=== PATIENT | female | born 1975 | race Caucasian/White ===

== ENCOUNTER 2019-08-07 10:01 | Emergency (ER) | payer OTHER ==
--- NOTE | 2019-08-07 10:25 | EDPHYS ---
Physician Documentation [facility] Name: Glo Perez Age: 44 yrs Sex: Female : 1975 Arrival Date: 08/07/2019 Time: 10:03 Bed 19 Private MD: Unknown, Unknown ED Physician Malick Samayoa HPI: 08/07 10:26 This 44 yrs old Female presents to ER via Ambulatory with complaints of Back jmm Pain. 10:26 The patient presents with pain that is acute. Onset: The symptoms/episode jmm began/occurred gradually, 1 day(s) ago. The pain does not radiate. Associated signs and symptoms: Pertinent negatives: abdominal pain, chest pain, weakness. Modifying factors: the patient symptoms are aggravated by movement. This is a 44 year old female with no known medical conditions that presents to the ED with complaints of right upper back pain. patient states she performed yard work yesterday and developed pain last night. denies chest pain, denies shortness of breath, denies fever or chills. pain is worsened with movement of her right arm. 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 - Social history:: Smoking status: Patient uses tobacco products, smokes one-half pack cigarettes per day. - Ebola Screening: : Patient negative for fever greater than or equal to 101.5 degrees Fahrenheit, and additional compatible Ebola Virus Disease symptoms Patient denies exposure to infectious person Patient denies travel to an Ebola-affected area in the 21 days before illness onset No symptoms or risks identified at this time. ROS: 10:26 Constitutional: Negative for fever, chills, and weight loss, Cardiovascular: Negative jmm for chest pain, palpitations, and edema, Respiratory: Negative for shortness of breath, cough, wheezing, and pleuritic chest pain. 10:26 Back: Positive for pain with movement. 10:26 All other systems are negative. Exam: 10:26 Constitutional: This is a well developed, well nourished patient who is awake, alert, jmm and in no acute distress. Head/Face: atraumatic. Eyes: EOMI, no conjunctival erythema appreciated ENT: Moist Mucus Membranes Neck: Trachea midline, Supple Chest/axilla: Normal chest wall appearance and motion. Cardiovascular: Regular rate and rhythm. No edema appreciated Respiratory: Normal respirations, no respiratory distress appreciated Abdomen/GI: Non distended, soft 10:26 Back: no midline tenderness, pain reproduced on palpation of the right paraspinal thoracic region. 10:26 Musculoskeletal/extremity: ROM: intact in all extremities. 10:26 Skin: Appearance: Color: normal in color. 10:26 Neuro: Orientation: is normal, Mentation: is normal, Memory: is normal. 10:26 Psych: Behavior/mood is pleasant, cooperative. Vital Signs: 10:20 BP 137 / 81; Pulse 98; Resp 16; Temp 97.8(TE); Pulse Ox 100% on R/A; Weight 115.67 kg; iw Height 5 ft. 8 in. (172.72 cm); Pain 8/10; 10:20 Body Mass Index 38.77 (115.67 kg, 172.72 cm) iw MDM: 10:15 Patient medically screened. [facility] 10:23 Data reviewed: vital signs, nurses notes. Counseling: I had a detailed discussion with [facility] the patient and/or guardian regarding: the historical points, exam findings, and any diagnostic results supporting the discharge/admit diagnosis, the need for outpatient follow up, to return to the emergency department if symptoms worsen or persist or if there are any questions or concerns that arise at home. ED course: Pain is reproducible. I do not suspect dissection or acs. Patient has not chest pain. Denies shortness of breath. . Administered Medications: No medications were administered Disposition: 13:03 Co-signature as Attending Physician, Malick Samayoa MD I agree with the assessment and kdr plan of care. Disposition: 08/07/19 10:24 Discharged to Home. Impression: Strain of muscle and tendon of back wall of thorax. - Condition is Stable. - Discharge Instructions: Thoracic Strain. - Prescriptions for Prednisone 20 mg Oral Tablet - take 3 tablet by ORAL route once daily for 5 days; 15 tablet. orphenadrine citrate 100 mg Oral Tablet Sustained Release - take 1 tablet by ORAL route 2 times per day As needed; 20 tablet. - Work release form, Medication Reconciliation Form, Thank You Letter, Antibiotic Education, Prescription Opioid Use form. - Follow up: Private Physician; When: 2 - 3 days; Reason: Recheck today's complaints, Continuance of care, Re-evaluation by your physician. Signatures: Sara Oconnell RN RN Malick Samayoa MD MD kdr Mickail, Joel, PA PA jmm Williams, Irene, RN RN iw Corrections: (The following items were deleted from the chart) 10:32 10:24 08/07/2019 10:24 Discharged to Home. Impression: Strain of muscle and tendon of ch back wall of thorax. Condition is Stable. Forms are Medication Reconciliation Form, Thank You Letter, Antibiotic Education, Prescription Opioid Use. Follow up: Private Physician; When: 2 - 3 days; Reason: Recheck today's complaints, Continuance of care, Re-evaluation by your physician. bridgette
--- NOTE | 2019-08-07 10:25 | ER ---
Nurse's Notes [facility] Name: Glo Perez Age: 44 yrs Sex: Female : 1975 Arrival Date: 08/07/2019 Time: 10:03 Bed 19 Private MD: Unknown, Unknown Diagnosis: Strain of muscle and tendon of back wall of thorax Presentation: 08/07 10:18 Presenting complaint: Patient states: right mid back pain started last night, was doing yard work yesterday, feels like crampy, aggravated when taking a deep breath. Transition of care: patient was not received from another setting of care. Onset of symptoms was August 06, 2019. Risk Assessment: Do you want to hurt yourself or someone else? Patient reports no desire to harm self or others. Initial Sepsis Screen: Does the patient meet any 2 criteria? No. Patient's initial sepsis screen is negative. Does the patient have a suspected source of infection? No. Patient's initial sepsis screen is negative. Care prior to arrival: None. 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 - Social history:: Smoking status: Patient uses tobacco products, smokes one-half pack cigarettes per day. - Ebola Screening: : Patient negative for fever greater than or equal to 101.5 degrees Fahrenheit, and additional compatible Ebola Virus Disease symptoms Patient denies exposure to infectious person Patient denies travel to an Ebola-affected area in the 21 days before illness onset No symptoms or risks identified at this time. Screenin:25 Abuse screen: Denies threats or abuse. Denies injuries from another. Nutritional ch screening: No deficits noted. Tuberculosis screening: No symptoms or risk factors identified. Fall Risk None identified. Assessment: 10:23 General: Appears in no apparent distress. comfortable, Behavior is calm, cooperative, ch appropriate for age. Neuro: Level of Consciousness is awake, alert, obeys commands, Oriented to person, place, time, situation. Cardiovascular: No deficits noted. Respiratory: No deficits noted. GI: No signs and/or symptoms were reported involving the gastrointestinal system. : No signs and/or symptoms were reported regarding the genitourinary system. Derm: Skin is pink, warm \T\ dry. Musculoskeletal: Capillary refill < 3 seconds, in bilateral fingers. Range of motion: limited in left shoulder. 10:25 Pain: Complains of pain in left mid back. ch 10:25 Pain: Complains of pain in right scapular area, right subscapular area and right mid ch back. 10:30 Reassessment: Patient appears in no apparent distress at this time. Patient and/or ch family updated on plan of care and expected duration. Pain level reassessed. Patient is alert, oriented x 3, equal unlabored respirations, skin warm/dry/pink. Patient states feeling better. Patient states symptoms have improved. Vital Signs: 10:20 BP 137 / 81; Pulse 98; Resp 16; Temp 97.8(TE); Pulse Ox 100% on R/A; Weight 115.67 kg; iw Height 5 ft. 8 in. (172.72 cm); Pain 8/10; 10:20 Body Mass Index 38.77 (115.67 kg, 172.72 cm) iw ED Course: 10:03 Patient arrived in ED. ag5 10:04 Unknown, Unknown is Private Physician. ag5 10:08 [facility]ill[facility] Campbell [facility] 10:08 Malick Samayoa MD is Attending Physician. [facility] 10:11 Esdras Haney LVN is Primary Nurse. em 10:20 Triage completed. iw 10:20 Arm band placed on. iw 10:25 No apparent distress. Resting quietly. ch 10:25 Patient has correct armband on for positive identification. Bed in low position. Call ch light in reach. Side rails up X 1. Pulse ox on. NIBP on. Warm blanket given. 10:25 No provider procedures requiring assistance completed. Patient did not have IV access ch during this emergency room visit. Administered Medications: No medications were administered Outcome: 10:24 Discharge ordered by . [facility] 10:32 Discharged to home ambulatory, with family. 10:32 Condition: stable 10:32 Discharge instructions given to patient, Instructed on discharge instructions, follow up and referral plans. medication usage, Demonstrated understanding of instructions, follow-up care, medications, Prescriptions given X 2. 10:32 Patient left the ED. Signatures: Sara Oconnell RN RN Guillermo Roach PA PA jmm Munoz, Edgar, COBOL ENGINEER COBOL ENGINEER em Cheri Cortes RN RN Ryan Cabral ag5 Corrections: (The following items were deleted from the chart) 10:26 10:23 Pain: Complains of pain in left trapezius, left scapular area and left ch subscapular area Pain currently is 8 out of 10 on a pain scale.
[2019-08-07 10:43] VITALS: BP 137/81; TEMP 97.8; O2SAT 100
== END 2019-08-07 10:32 | disposition home or self-care (01) ==
LOC: ER 10:01
DX: S29.012A Strain of muscle and tendon of back wall of thorax, initial encounter (principal); Y93.H2 Activity, gardening and landscaping; Y93.89 Activity, other specified; Y92.9 Unspecified place or not applicable; F17.210 Nicotine dependence, cigarettes, uncomplicated
CPT/HCPCS: 99283

== ENCOUNTER 2020-05-17 22:26 | Emergency (ER) | payer OTHER ==
--- OUTSIDE RECORDS SUMMARY | 2020-05-17 22:29 | XMS REPORT | Continuity of Care Document ---
:1975 Author Organization [facility] t Address [address] [place] [address] Care Team Providers Name Role Phone [facility] Attending Clinician Unavailable Denice Vivar Attending Clinician Problems This patient has no known problems. Allergies, Adverse Reactions, Alerts This patient has no known allergies or adverse reactions. Medications This patient has no known medications. Procedures This patient has no known procedures. Encounters Start End Encounter Admission Attending Care Care Encounter Source Date/Time Date/Time Type Type Clinicians Facility Department ID 2020-04-26 2020-04-26 Urgent Pob1, Acute [facility] [id number] 11:16:58 11:36:58 [facility] [id number] [place] [id number] Professio [id number] [address] 2019-06-11 2019-06-11 Office SHIVA Rahman [id number] 07:52:15 08:17:02 Visit Koki Galdamez SHIFT STACKER [id number] [facility] [id number] MATERNAL [id number] & CHILD [address] [place] [address] Results This patient has no known results.
--- OUTSIDE RECORDS SUMMARY | 2020-05-17 22:29 | XMS REPORT | Summary of Care ---
:1975 Author Organization [facility] - [facility] Address [address] [place] [id number] Care Team Providers Name Role Phone Scott Anderson Primary Care Provider Reason for Visit Reason Comments Headache terrible headache, even her eyes hurt Fatigue Shortness of Breath having a hard time breathing , chest hurts to breathe in Cough non productive and severe at night. Encounter Details Date Type Department Care Team Description 04/26/2020 Urgent Care [facility] Family Nicky Gregg, SPECIFICATIONS CHECKER [facility] [address] [address] Suspected 2019 Novel Coronavirus Infecti on (Primary Dx); Medicine - [place] [facility] URI, acute; [address] [place] [address] SOB (short ness of breath) [place] [address] Allergies No Known Allergiesdocumented as of this encounter (statuses as of 04/26/2020) Medications Medication Sig Dispensed Refills Start Date End Date Status albuterol (VENTOLIN Inhale 2 Puffs 8.5 g 0 04/26/202005/14 Active HFA) 90 every 6 (six) mcg/actuation hours as needed inhalerIndications: for Shortness of URI, acute, SOB Breath or Chest (shortness of tightness for up breath) to 30 days. amoxicillin-clavulan Take 1 tablet by 20 tablet 0 04/26/2020 0 05/06/2020 Active ate (AUGMENTIN) mouth 2 (two) 875-125 mg per times daily for 10 tabletIndications: days. URI, acute brompheniramine-pseu Take 5 mL by mouth 200 mL 0 04/26/2020 05/06/2020 Active doephedrine-DM 4 (four) times (BROMFED DM) 2-30-10 daily as needed mg/5 mL for Cough for up syrupIndications: to 10 days. URI, acute documented as of this encounter (statuses as of 04/26/2020) Active Problems Problem Noted Date Total knee replacement status 02/09/2019 History of arthritis 01/23/2019 Overview: Added automatically from request for rajinder carrasco [id number] Morbid obesity with body mass index of 40.0-49.9 01/05 Other depression 12/15/2018 History of tubal ligation 12/15/2018 TOLU (stress urinary incontinence, female) 11/18/2018 Overview: Added automatically from request for rajinder carrasco [id number] Internal derangement of right knee 10/17/2018 Overview: Added automatically from request for rajinder carrasco [id number] S/P total hip arthroplasty 07/21/2018 Well woman exam 12/04/2017 Screening for STD (sexually transmitted disease) 12/04 IV drug user 12/04/2017 Tobacco use disorder 12/04/2017 Obesity, unspecified classification, unspecified obesi ty type, unspecified 12/04/2017 whether serious comorbidity present BMI 34.0-34.9,adult 12/04/2017 Thyroid disease 12/04/2017 Enlarged thyroid gland 12/04/2017 documented as of this encounter (statuses as of 04/26/2020) Immunizations Name Administration Dates Next Due TDAP (ADACEL) VACCINE 07/14/2017 documented as of this encounter Social History Tobacco Use Types Packs/Day Years Used Date Current Every Day Smoker Cigarettes 1 30 Smokeless Tobacco: Never Used Comments: 15 per day Alcohol Use Drinks/Week oz/Week Comments No Sex Assigned at Date Recorded Not on file Job Start Date Occupation Industry Not on file Not on file Not on file Travel History Travel Start Travel End No recent travel history available. documented as of this encounter Last Filed Vital Signs Vital Sign Reading Time Taken Comments Blood Pressure 119/84 04/26/2020 11:24 AM CDT Pulse 113 04/26/2020 11:24 AM CDT Temperature 36.9 C (98.5 F) 04/26/2020 11:24 AM CDT Respiratory Rate 24 04/26/2020 11:24 AM CDT Oxygen Saturation 97% 04/26/2020 11:24 AM CDT Inhaled Oxygen Concentration - - Weight 106.1 kg (234 lb) 04/26/2020 11:24 AM CDT Height 172.7 cm (5' 8") 04/26/2020 11:24 AM CDT Body Mass Index 35.58 04/26/2020 11:24 AM CDT documented in this encounter Patient Instructions Patient InstructionsErin Gregg FNP - 04/26/2020 11:20 AM CDT Patient Education Shortness of Breath (Dyspnea) Shortness of breath is the feeling that you can't catch your breath or get enough air. It is also known as dyspnea. Dyspnea can be caused by many different conditions. They include: Acute asthma attack Worsening of chronic lung diseases such as chronic bronchitis and emphysema Heart failure. This is when weak heart muscle allows extra fluid to collect in the lungs. Panic attacks or anxiety. Fear can cause rapid breathing (hyperventilation). Pneumonia, or an infection in the lung tissue Exposure to toxic substances, fumes, smoke, or certain medicines Blood clot in the lung (pulmonary embolism). This is often from a piece of blood clot in a deep vein of the leg (deep vein thrombosis) that breaks off and travels to the lungs. Heart attack or heart-related chest pain (angina) Anemia Collapsed lung (pneumothorax) Dehydration Based on your visit today, the exact cause of your shortness of breath is not certain. Your tests dont show any of the serious causes of dyspnea. You may need other tests to find out if you have a serious problem. Its important to watch for any new symptoms or symptoms that get worse. Follow up with your healthcare provider as directed. Home care Follow these tips to take care of yourself at home: When your symptoms are better, go back to your usual activities. If you smoke, you should stop. Join a quit-smoking program or ask your healthcare provider for help. Eat a healthy diet and get plenty of sleep. Get regular exercise. Talk with your healthcare provider before starting to exercise, especially if you have other medical problems. Cut down on the amount of caffeine and stimulants you consume. Follow-up care Follow up with your healthcare provider, or as advised. If tests were done, you will be told if your treatment needs to be changed. You can call as directedfor the results. If an X-ray was taken, a specialist will review it. You will be notified of any new findings that may affect your care. Call 911 Shortness of breath may be a sign of a serious medical problem. For example, it may be a problem with your heart or lungs. Call 911 if you have worsening shortness of breath or trouble breathing, especially with any of the symptoms below: Confusion or difficulty waking Fainting or loss of consciousness. Fast or irregular heartbeat Coughing up blood Pain in your chest, arm, shoulder, neck, or upper back Sweating When to seek medical advice Call your healthcare provider right away if any of these occur: Slight shortness of breath or wheezing Redness, pain or swelling in your leg, arm, or other body area Swelling in both legs or ankles Fast weight gain Dizziness or weakness Fever of 100.4F (38C) or higher, or as directed by your healthcare provider [employer] last reviewed this educational content on 03/14/201819997786-3369 [employer]. [address] [place] [address]. All rights reserved. This information is not intended as a substitute for professional medical care. Always follow your healthcare professional's instructions. Patient Education Viral Upper Respiratory Illness with Wheezing (Adult) You have a viral upper respiratory illness (URI), which is another term for the common cold. When the infection causes a lot of irritation, the air passages can go into spasm. This causes wheezing and shortness of breath. This illness is contagious during the first few days. It is spread through the air by coughing and sneezing. It may also be spread by direct contact. This could be by touching the sick person and then touching your own eyes, nose, or mouth. Frequent handwashing will decrease the risk. Most viral illnesses go away within 7 to 10 days with rest and simple home remedies. Sometimes the illness may last for several weeks. Antibiotics will not kill a virus, and they are generally not prescribed for this condition. Home care If symptoms are severe, rest at home for the first 2 to 3 days. When you resume activity, don't let yourself get too tired. If you smoke, stop. Ask your healthcare provider if you need help. Stay away from secondhand cigarette smoke. Don't let people smoke in your house or car. You may use acetaminophen or ibuprofen to control pain and fever, unless another medicine was prescribed. Take the medicine only as directed on the label. If you have chronic liver or kidney disease, have ever had a stomach ulcer or gastrointestinal bleeding, or are taking blood-thinning medicines,talk with your healthcare provider before using these medicines. Aspirin should never be given to anyone under 18 years of age who is ill with a viral infection or fever. It may cause severe liver or brain damage. Your appetite may be poor, so a light diet is fine. Stay well hydrated by drinking 6 to 8 glassesof fluids per day (water, soft drinks, juices, tea, or soup). Extra fluids will help loosen secretions in the nose and lungs. Ilep-siq-zczactp cold medicines will not shorten the length of time youre sick, but they may be helpful for the following symptoms: cough, sore throat, and nasal and sinus congestion. Ask your healthcare provider or pharmacist which vvqm-csu-mhxqzis medicine to use. Don't use decongestants if you have high blood pressure. Follow-up care Follow up with your healthcare provider, or as advised. When to seek medical advice Call your healthcare provider right away if any of these occur: Cough with lots of colored sputum (mucus) Severe headache; face, neck, or ear pain Difficulty swallowing due to throat pain Fever of 100.4F (38C) or higher, or as directed by your healthcare provider Call 911 Call 911 if any of these occur: Chest pain, shortness of breath, worsening wheezing, or difficulty breathing Coughing up blood Very severe pain when swallowing, especially if it goes along with a muffled voice [employer] last reviewed this educational content on 03/14/201819991877-1421 [employer]. [address] [place] [address]. All rights reserved. This information is not intended as a substitute for professional medical care. Always follow your healthcare professional's instructions. documented in this encounter Progress Notes Erin Gregg FNP - 04/26/2020 11:20 AM CDT Cc: Chief Complaint Patient presents with Headache terrible headache, even her eyes hurt Fatigue Shortness of Breath having a hard time breathing, chest hurts to breathe in Cough non productive and severe at night. Glo Perez is a 45 year old female. Patient is here with cough, SOB and chest tightening as well as myalgia worse in the past 2 dys, butshe states she had something similar 2 weeks ago, seems to have gone away but came back. She is a smoker. Cough Cough characteristics: Dry and hacking Sputum characteristics: Nondescript Severity: Moderate Onset quality: Gradual Duration: 2 days Timing: Constant Progression: Unchanged Chronicity: New Smoker: yes Context: not exposure to allergens and not upper respiratory infection Relieved by: Nothing Worsened by: Nothing Ineffective treatments: None tried Associated symptoms: headaches, myalgias and shortness of breath Associated symptoms: no chest pain and no wheezing Associated symptoms comment: Chest tightening Headaches: Severity: Mild Onset quality: Gradual Timing: Intermittent Progression: Unchanged Chronicity: New Myalgias: Location: Generalized Quality: Aching Severity: Moderate Onset quality: Gradual Timing: Constant Shortness of breath: Severity: Mild Onset quality: Gradual Timing: Intermittent Progression: Unchanged Allergies Glo has No Known Allergies. Medications No outpatient medications prior to visit. No facility-administered medications prior to visit. Histories Past Medical History: Diagnosis Date Arthritis Chronic neck pain Depression ongoing, currently taking medication. IV drug abuse Pap smear abnormality of cervix per pt about 20 yrs ago with [facility] Screening for STD (sexually transmitted disease) 12/04/2017 Substance abuse meth use x 10 yrs TOLU (stress urinary incontinence, female) 11/18/2018 Thyroid disease currently taking medication Tobacco use disorder 12/04/2017 Past Surgical History: Procedure Laterality Date APPENDECTOMY CONIZATION CERVIX,LOOP ELECTRD KNEE ARTHROSCOPY Right 10/20/2018 Surgeon: Tremaine Tse MD; [facility] TOTAL HIP ARTHROPLASTY Right 07/21/2018 Surgeon: Tremaine Tse MD; Location[facility] TOTAL KNEE ARTHROPLASTY Right 02/09/2019 Surgeon: Tremaine Tse MD; [facility] TUBAL LIGATION unsure of date Social History Socioeconomic History Marital status: Spouse name: Not on file Number of children: Not on file Years of education: Not on file Highest education level: Not on file Occupational History Not on file Social Needs Financial resource strain: Not on file Food insecurity: Worry: Not on file Inability: Not on file Transportation needs: Medical: Not on file Non-medical: Not on file Tobacco Use Smoking status: Current Every Day Smoker Packs/day: 1.00 Years: 30.00 Pack years: 30.00 Types: Cigarettes Smokeless tobacco: Never Used Tobacco comment: 15 per day Substance and Sexual Activity Alcohol use: No Drug use: No Types: Methamphetamines Comment: last use 03/24/18 Sexual activity: Yes Partners: Male control/protection: Surgical Comment: last sexual intercourse 12/08/2018 Lifestyle Physical activity: Days per week: Not on file Minutes per session: Not on file Stress: Not on file Relationships Social connections: Talks on phone: Not on file Gets together: Not on file Attends alevism service: Not on file Active member of club or organization: Not on file Attends meetings of clubs or organizations: Not on file Relationship status: Not on file Intimate partner violence: Fear of current or ex partner: Not on file Emotionally abused: Not on file Physically abused: Not on file Forced sexual activity: Not on file Other Topics Concern Not on file Social History Narrative Zoroastrianism preference is Lutheran. Patient lives with family. Patient has 1 dog. Family History Problem Relation Age of Onset Hypertension Maternal Grandmother No Significant Medical Problems Mother No Significant Medical Problems Father No Significant Medical Problems Brother No Significant Medical Problems Maternal Aunt No Significant Medical Problems Maternal Uncle No Significant Medical Problems Paternal Aunt No Significant Medical Problems Paternal Uncle No Significant Medical Problems Paternal Grandmother Arthritis NoFHx Asthma NoFHx defects NoFHx Breast Cancer NoFHx Colon Cancer NoFHx Ovarian Cancer NoFHx Uterine Cancer NoFHx Cancer NoFHx Depression NoFHx Diabetes NoFHx Genetic NoFHx Heart NoFHx High cholesterol NoFHx Neurological NoFHx Mental retardation NoFHx Osteoporosis NoFHx Psychiatry NoFHx Review of Systems Constitutional: Negative. Respiratory: Positive for cough and shortness of breath. Negative for apnea, choking, chest tightness and wheezing. Cardiovascular: Negative. Negative for chest pain, palpitations and leg swelling. Gastrointestinal: Negative. Musculoskeletal: Positive for myalgias. Skin: Negative. Neurological: Positive for headaches. Endocrine: Endocrine negative Vital Signs BP 119/84 | Pulse 113 | Temp 36.9 C (98.5 F) | Resp 24 | Ht 5' 8" (1.727 m) | Wt 234 lb (106.1 kg) | SpO2 97% | BMI 35.58 kg/m Physical Exam Constitutional: She is oriented to person, place, and time. She appears well- developed and well-nourished. HENT: Head: Normocephalic. Right Ear: Hearing, tympanic membrane, external ear and ear canal normal. Left Ear: Hearing, tympanic membrane, external ear and ear canal normal. Nose: Nose normal. Right sinus exhibits no maxillary sinus tenderness and no frontal sinus tenderness. Left sinus exhibits no maxillary sinus tenderness and no frontal sinus tenderness. Mouth/Throat: Uvula is midline, oropharynx is clear and moist and mucous membranes are normal. No oropharyngeal exudate, posterior oropharyngeal edema or posterior oropharyngeal erythema. No tonsillar exudate. Neck: Normal range of motion. Neck supple. Cardiovascular: Normal rate, regular rhythm, normal heart sounds and intact distal pulses. Exam reveals no gallop and no friction rub. No murmur heard. Pulmonary/Chest: Effort normal. No respiratory distress. She has decreased breath sounds. She has wheezes in the left lower field. She has no rales. She exhibits no tenderness. Abdominal: Soft. Bowel sounds are normal. She exhibits no distension. There is no tenderness. Lymphadenopathy: Head (right side): No submental, no submandibular, no tonsillar, no preauricular and no posterior auricular adenopathy present. Head (left side): No submental, no submandibular, no tonsillar, no preauricular and no posterior auricular adenopathy present. She has no cervical adenopathy. Neurological: She is alert and oriented to person, place, and time. Skin: Skin is warm and dry. Capillary refill takes less than 2 seconds. No rash noted. No erythema. No pallor. Psychiatric: She has a normal mood and affect. Nursing note and vitals reviewed. Assessment/Plan 1. URI acute: Bromfed and ventolin given for symptoms relief. covid test done and pending. In the meantime, quarantine in place, treat symptoms with OTC meds, Tylenol as needed but no NSAIDs. Stay in quarantine until symptoms subsides, plus 3 days afterwards or until you hear otherwise. Follow up with your PCP as needed, and if with worsening of symptoms, any respiratory distress, go to the ER. 2. SOB: ventolin given as needed. Plan of care, desired health behaviors, goals, and medication discussed with patient. Education resources provided and reviewed with AVS. Patient/guardian/family verbalized understanding & agrees to plan of care. This visit did not involve counseling and coordination that comprised more than 50% of the visit time. If applicable, the [facility] database was accessed to review any controlled substance prescription claims data. The [employer] prescription claims data in [employer] was reviewed to assess patient compliance with the medication treatment plan. Sunita Sabillon MA - 04/26/2020 11:20 AM CDT Glo Perez is a 45 year old female Chief Complaint Patient presents with Headache terrible headache, even her eyes hurt Fatigue Shortness of Breath having a hard time breathing, chest hurts to breathe in Cough non productive and severe at night. Vitals: 04/26/20 1124 BP: 119/84 Pulse: 113 Resp: 24 Temp: 36.9 C (98.5 F) SpO2: 97% Weight: 234 lb (106.1 kg) Height: 5' 8" (1.727 m) [facility]/pharmacy #[id number] All Vitals taken, allergies and all medications reviewed, fall risk assessed. Pain level 0. Sunita Gruber MA 04/26/2020 11:28 AM Patient educated on plan of care for visit, swabbing technique, risks and benefits of test and length of time to receive results. Verbal consent obtained to perform test. CDC Fact Sheet for Patients nCoV Diagnostic Panel dated 12/27/2019 provided. documented in this encounter Plan of Treatment Name Type Priority Associated Diagnoses Order S chejersey COVID-19 (PCR MOLECULAR LAB Routine Suspected 2019 No adiel Ordered: 04/26/2020 TESTING) Coronavirus Infection Health Maintenance Due Date Last Done Comments PNEUMOCOCCAL 0-64 YEARS COMBINED 1980 SERIES (1 of 1 - PPSV23) Breast Cancer Screening (MAMMOGRAM) 11/09/2018 11/09/2017 ( Previously completed) INFLUENZA VACCINE (#1) 2020 09/12/2018 Depression Screening 07/15/2020 07/15/2019 PAP SMEAR 12/04/2020 12/04/2017, 06/03/2006 DTaP,Tdap,and Td Vaccines (2 - Td) 07/14/2027 07/14/2017 documented as of this encounter Goals Goal Patient Goal Associated Recent Patient-Stated? Author Type Problems Progress Quit using Tobacco Use No [place], tobacco Deandra Perez MA (cigarettes, smokeless, etc) documented as of this encounter Implants Implanted Type Area Art Librarian Device Shelf Model / Identifier Expiration Serial / Lot Date Shell Acetabular G7 Cementless Limited 3 Hole Sizr F 56mm Tammy Ref#[id number] Acetabular Right: Biomet 06/08/2028 [id number] / Implanted: Qty: 1 on 07/21/2018 by Tremaine Godinez MD at [facility] Cup Hip 6 [id number] / [id number] Liner G7 Acetabular Neutral Size F 40mm Tammy Ref# [id number] Ac etabular Right: [employer] 06/08/2023 [id number] / Implanted: Qty: 1 on 07/21/2018 by Tremaine Godinez MD at [facility] Liner Hip 6 [id number] / [id number] Bone Cement Injector 1x40 High Viscosity Tammy Ref#[id number] - [id number] CEMENT Right: [employer]omet 10/13/2022 [id number] / Implanted: Qty: 1 on 02/09/2019 by Tremaine Godinez MD at [facility] Knee 8 [id number] / [id number] Ceraminc Head 40 Mm Biomet #650-1058 - [id number] Femoral Head Right: Biomet 05/01/2027 [id number] / Implanted: Qty: 1 on 07/21/2018 by Tremaine Godinez MD at [facility] Hip 2 [id number] / [id number] Femoral Stem Cementless Complete Reduced Size 9 Tammy Ref#[id number] Femur Right: Biomet 05/26/2028 [id number] / Implanted: Qty: 1 on 07/21/2018 by Tremaine Godinez MD at [facility] Hip 6 [id number] / [id number] Adapter Taper [place] [employer]omet #650-1066 - [id number] [id number] Right : [employer]omet 03/04/2028 [id number] / Implanted: Qty: 1 on 07/21/2018 by Tremaine Godinez MD at [facility] Hip 2 [id number] / [id number] Femoral Cementless Right Porous 60mm [employer] #[id number] [[id number]] KNEE Right: [employer] 08/29/2028 [id number] / Implanted: Qty: 1 on 02/09/2019 by Tremaine Godinez MD at [facility] Knee 8 [id number] / [id number] Component Primary Tibial Modular Tray Ce mentless 71mm Vanguard [employer] Ref#[id number] KNEE Right: [employer] 05/28/2022 [id number] / Implanted: Qty: 1 on 02/09/2019 by Tremaine Godinez MD at [facility] Knee 1 [id number] / [id number] Bearing Tibial Articular 71mm/75mm [employer]ard [employer] Ref#[id number] KNEE Right: [employer] 12/23/2023 [id number] / Implanted: Qty: 1 on 02/09/2019 by Tremaine Godinez MD at [facility] Knee 8 [id number] / [id number] Screw, Tammy Bone 6.5x20 Self-Tap #[id number] - [id number] CREW Right: Tammy 01/11/202717-1426-724-20 / Implanted: Qty: 1 on 07/21/2018 by Tremaine Godinez MD at [facility] Hip 6 [id number] / [id number] Screw, Tammy Bone 6.5x20 Self-Tap #[id number] - [id number] S CREW Right: Tammy 03/13/202815-1932-757-20 / Implanted: Qty: 1 on 07/21/2018 by Tremaine Godinez MD at [facility] Hip 6 [id number] / [id number] Screw Bone 6.5x30mm Lp St [employer] #365760 - [id number] Right: [employer]omet 12/16/2028 [id number] / Implanted: Qty: 2 on 02/09/2019 by Tremaine Godinez MD at [facility] Knee 8 / [id number] Screw Bone 6.5x30mm Lp St [employer] #[id number] - [id number] Right: [employer]omet 07/24/2028 [id number] / Implanted: Qty: 1 on 02/09/2019 by Tremaine Godinez MD at [facility] Knee 5 [id number] / [id number] Patella 8 X 31mm [employer]#486029 - [id number] Right: [employer]omet 12/18/2023 [id number] / Implanted: Qty: 1 on 02/09/2019 by Tremaine Godinez MD at [facility] Knee 8 [id number] / [id number] Stem Finned Primary 40mm [employer] #[id number] - [id number] Right: [employer]omet 12/18/2028 [id number] / Implanted: Qty: 1 on 02/09/2019 by Tremaine Godinez MD at [facility] Knee 5 [id number] / [id number] Screw Bone 6.5x30mm Lp St [employer] #[id number] - [id number] Right: [employer]omet 11/26/2028 [id number] / Implanted: Qty: 1 on 02/09/2019 by Tremaine Godinez MD at [facility] Knee 5 [id number] / [id number] documented as of this encounter Results Not on filedocumented in this encounter Visit Diagnoses Diagnosis Suspected 2019 Novel Coronavirus Infecti on - Primary URI, acute Acute upper respiratory infections of un specified site SOB (shortness of breath) Shortness of breath documented in this encounter Insurance Payer Benefit Plan / Subscriber ID Effective Dates Phone Addre ss Type Group [facility] xxxxxxxxx 2018-Present Medicaid COMM PLAN - MANAGED MEDICAID documented as of this encounter Advance Directives Name Relationship Healthcare Agent Communication Relationship Araceli [place] Mother Primary healthcare agent
[2020-05-17 23:14] LABS: Absolute Lymphocytes (CBC) 1.5 K/uL (0.7-4.9); Basophils % 0.8 % (0-1.3); Hematocrit 38.1 % (36.0-45.0); Lymphocytes % 22.3 % (15.3-44.8); MPV 9.2 fL (7.6-11.3); RBC Red Blood Cell Count 4.62 M/uL (3.86-4.86)
[2020-05-17 23:15] LABS: Protime INR 0.98
[2020-05-17 23:45] LABS: ALT/SGPT 30 U/L (12-78); AST/SGOT 23 U/L (15-37); Albumin 3.3 g/dL (3.4-5.0); Alkaline Phosphatase 99 U/L (45-117); BUN Blood Urea Nitrogen 18 mg/dL (7-18); Bicarbonate 21 mmol/L (21-32); Bilirubin Direct 0.2 mg/dL (0-0.2); Bilirubin Total 0.4 mg/dL (0.2-1.0); Glucose Level 104 mg/dL (74-106); NT PRO-BNP 1930 pg/mL (<125); Potassium 3.9 mmol/L (3.5-5.1); Protein, Total 7.2 g/dL (6.4-8.2); Sodium Level 142 mmol/L (136-145); Thyroid Stimulating Hormone < 0.005 uIU/mL (0.360-3.740); Troponin (Emerg Dept Use Only) < 0.02 ng/mL (0.0-0.045)
[2020-05-18] MEDS ORDERED: METOPROLOL TAR 25 MG TAB ONE (00:10)
[2020-05-18] MEDS ORDERED: FUROSEMIDE 40 MG/4 ML VIAL ONE (00:10)
--- NOTE | 2020-05-18 01:44 | ER ---
Nurse's Notes [facility] Name: Glo Perez Age: 45 yrs Sex: Female : 1975 Arrival Date: 05/17/2020 Time: 22:27 Bed 8 Private MD: Diagnosis: Thyrotoxicosis [hyperthyroidism];Shortness of breath Presentation: 05/17 22:41 Chief complaint: Patient states: Reports she has been having difficulty breathing and ea coughing for the past couple week. Pt reports she was tested last week for covid and her test came back negative. Coronavirus screen: cough unrelated to allergies, difficulty breathing. Ebola Screen: No symptoms or risks identified at this time. Initial Sepsis Screen: Does the patient meet any 2 criteria? HR > 90 bpm. Does the patient have a suspected source of infection? No. Patient's initial sepsis screen is negative. Risk Assessment: Do you want to hurt yourself or someone else? Patient reports no desire to harm self or others. Onset of symptoms. 22:41 Method Of Arrival: Ambulatory ea 22:41 Acuity: LANA 3 ea Triage Assessment: 22:46 General: Appears uncomfortable, Behavior is calm, cooperative, appropriate for age. ea Pain: Complains of pain in body aches. Respiratory: Reports shortness of breath Onset: The symptoms/episode began/occurred couple weeks , the patient has mild shortness of breath. 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 - Social history:: Smoking status: Patient reports the use of cigarette tobacco products, smokes one pack cigarettes per day. Screenin:44 Abuse screen: Denies threats or abuse. Nutritional screening: No deficits noted. ea Tuberculosis screening: No symptoms or risk factors identified. Fall Risk None identified. Assessment: 23:10 General: Appears in no apparent distress. comfortable, Behavior is calm, cooperative. mg2 Pain: Complains of pain in whole body. Neuro: Level of Consciousness is awake, alert, obeys commands, Oriented to person, place, time, situation. Cardiovascular: Rhythm is sinus tachycardia. Respiratory: Airway is patent Respiratory effort is labored, Respiratory pattern is regular, symmetrical, tachypnea. Respiratory: actively coughing. GI: No signs and/or symptoms were reported involving the gastrointestinal system. : No signs and/or symptoms were reported regarding the genitourinary system. EENT: Reports sore throat. Derm: Skin is intact, is healthy with good turgor, Skin is pink, warm \T\ dry. normal. Musculoskeletal: Circulation, motion, and sensation intact. Capillary refill < 3 seconds. 23:10 Respiratory: Breath sounds are clear. mg2 05/18 00:16 Reassessment: Patient and/or family updated on plan of care and expected duration. Pain mg2 level reassessed. Patient is alert, oriented x 3, equal unlabored respirations, skin warm/dry/pink. 00:38 Reassessment: patient sent to ct scan. mg2 Vital Signs: 05/17 22:41 BP 113 / 82; Pulse 112; Resp 28; Temp 98.7; Pulse Ox 100% on R/A; Weight 112.49 kg; ea Height 5 ft. 8 in. (172.72 cm); 05/18 00:16 BP 124 / 96; Pulse 109; Resp 24; Pulse Ox 100% on R/A; mg2 01:40 Pulse 105; Resp 22; Pulse Ox 99% on R/A; mg2 02:29 BP 111 / 75; Pulse 95; Resp 20; Temp 98.5; Pulse Ox 100% on R/A; mg2 05/17 22:41 Body Mass Index 37.71 (112.49 kg, 172.72 cm) ea ED Course: 05/17 22:27 Patient arrived in ED. cf2 22:34 Nikunj Patel PA is PHCP. jr8 22:34 John Paul Cho MD is Attending Physician. jr8 22:44 Triage completed. ea 22:45 Patient has correct armband on for positive identification. ea 22:47 Arm band placed on right wrist. Patient placed in an exam room, on a stretcher, on ea pulse oximetry. 22:54 Maxx Clark, FRANCISCA is Primary Nurse. mg2 22:55 Inserted saline lock: 18 gauge in left forearm, using aseptic technique. Blood ds4 collected. 23:12 No provider procedures requiring assistance completed. mg2 05/18 00:16 Door closed. Assisted to bathroom. mg2 00:20 XRAY Chest (1 view) In Process Unspecified. EDMS 01:05 CT Chest For PE Angio In Process Unspecified. EDMS 01:43 Tiago Redmond is Hospitalizing Provider. jr8 02:26 covib swab sent to the lab. mg2 03:08 IV discontinued, intact, bleeding controlled, No redness/swelling at site. Pressure mg2 dressing applied. Administered Medications: 05/17 23:57 Not Given (Physician Discretion): Metoprolol 5 mg IVP once; Hold for SBP <100 or HR <60.jr8 05/18 00:15 Drug: Lasix 40 mg Route: IVP; Site: left forearm; mg2 00:38 Follow up: Response: No adverse reaction; patient urinated mg2 00:15 Drug: Metoprolol 25 mg Route: PO; mg2 01:36 Follow up: Response: No adverse reaction mg2 Intake: Outcome: 01:44 Decision to Hospitalize by Provider. jr8 02:59 Discharge ordered by MD. jr8 03:15 Discharged to home ambulatory. mg2 03:15 Condition: stable 03:15 Discharge instructions given to patient, Instructed on discharge instructions, follow up and referral plans. medication usage, Demonstrated understanding of instructions, follow-up care, medications, Prescriptions given X 2. 03:16 Patient left the ED. mg2 Addendum: 05/19/2020 15:48 Addendum: COVID-19 Result: Negative result given to RN to notify pt. Notified pt of h b negative COVID 19 swab results. Pt advised that even with a negative test result they should remain in isolation until symptom free for 3 days without medication. Pt also advised to return to the ED for worsening symptoms. Signatures: Dispatcher [employer] EDMI Nikunj Patel PA PA jr8 Alistair Morgan ds4 Piper Peralta RN RN Radha Jordan RN RN ea Gardose, Michele, RN RN mg2 José Manuel Soliz cf2 Corrections: (The following items were deleted from the chart) 05/18 02:29 02:26 Reassessment: patient agreed to be admitted. mg2 mg2 03:08 02:26 Patient admitted, IV remains in place. mg2 mg2
--- NOTE | 2020-05-18 01:45 | EDPHYS ---
Physician Documentation [facility] Name: Glo Perez Age: 45 yrs Sex: Female : 1975 Arrival Date: 05/17/2020 Time: 22:27 Bed 8 Private MD: ED Physician John Paul Cho HPI: 05/17 22:48 This 45 yrs old Female presents to ER via Ambulatory with complaints of jr8 Breathing Difficulty, Cough, BODY ACHES. 22:48 The patient has shortness of breath at rest. Onset: The symptoms/episode began/occurred jr8 gradually, 2 week(s) ago. Duration: The symptoms are continuous, and are markedly worse than the original presentation. The patient's shortness of breath is aggravated by light activity, supine position. Associated signs and symptoms: Pertinent positives: non-productive cough. Severity of symptoms: At their worst the symptoms were moderate in the emergency department the symptoms are unchanged. The patient has not experienced similar symptoms in the past. The patient has not recently seen a physician. Tested for COVID last week and was negative . 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 - Social history:: Smoking status: Patient reports the use of cigarette tobacco products, smokes one pack cigarettes per day. ROS: 22:48 Eyes: Negative for injury, pain, redness, and discharge, ENT: Negative for injury, jr8 pain, and discharge, Neck: Negative for injury, pain, and swelling, Cardiovascular: Negative for chest pain, palpitations, and edema, Abdomen/GI: Negative for abdominal pain, nausea, vomiting, diarrhea, and constipation, Back: Negative for injury and pain, MS/Extremity: Negative for injury and deformity, Skin: Negative for injury, rash, and discoloration, Neuro: Negative for headache, weakness, numbness, tingling, and seizure. 22:48 Respiratory: Positive for cough, dyspnea on exertion, orthopnea, shortness of breath. Exam: 22:48 Eyes: Pupils equal round and reactive to light, extra-ocular motions intact. Lids and jr8 lashes normal. Conjunctiva and sclera are non-icteric and not injected. Cornea within normal limits. Periorbital areas with no swelling, redness, or edema. ENT: Nares patent. No nasal discharge, no septal abnormalities noted. Tympanic membranes are normal and external auditory canals are clear. Oropharynx with no redness, swelling, or masses, exudates, or evidence of obstruction, uvula midline. Mucous membranes moist. Neck: Trachea midline, no thyromegaly or masses palpated, and no cervical lymphadenopathy. Supple, full range of motion without nuchal rigidity, or vertebral point tenderness. No Meningismus. Abdomen/GI: Soft, non-tender, with normal bowel sounds. No distension or tympany. No guarding or rebound. No evidence of tenderness throughout. Back: No spinal tenderness. No costovertebral tenderness. Full range of motion. Skin: Warm, dry with normal turgor. Normal color with no rashes, no lesions, and no evidence of cellulitis. MS/ Extremity: Pulses equal, no cyanosis. Neurovascular intact. Full, normal range of motion. Neuro: Awake and alert, GCS 15, oriented to person, place, time, and situation. Cranial nerves II-XII grossly intact. Motor strength 5/5 in all extremities. Sensory grossly intact. Cerebellar exam normal. Normal gait. 22:48 Cardiovascular: Rate: tachycardic, Rhythm: regular, Pulses: Pulses are 2+ in right radial artery and left radial artery. Heart sounds: normal, normal S1and S2, no S3 or S4, no murmur, no rub, no gallop, Edema: 2+ edema to level of left midcalf, left ankle, left foot, right midcalf, right ankle and right foot, JVD: is not appreciated. 22:48 Respiratory: mild respiratory distress is noted, Respirations: labored breathing, tachypnea, Breath sounds: are clear throughout, no bronchial sounds, no decreased breath sounds, no rales, rhonchi, no stridor, no wheezing. 05/18 01:39 ECG was reviewed by the Attending Physician. jr8 Vital Signs: 05/17 22:41 BP 113 / 82; Pulse 112; Resp 28; Temp 98.7; Pulse Ox 100% on R/A; Weight 112.49 kg; ea Height 5 ft. 8 in. (172.72 cm); 05/18 00:16 BP 124 / 96; Pulse 109; Resp 24; Pulse Ox 100% on R/A; mg2 01:40 Pulse 105; Resp 22; Pulse Ox 99% on R/A; mg2 02:29 BP 111 / 75; Pulse 95; Resp 20; Temp 98.5; Pulse Ox 100% on R/A; mg2 05/17 22:41 Body Mass Index 37.71 (112.49 kg, 172.72 cm) ea MDM: 05/17 22:35 Patient medically screened. jr8 05/18 01:39 Data reviewed: vital signs, nurses notes, lab test result(s), EKG, radiologic studies, jr8 plain films. Data interpreted: Pulse oximetry: on room air is 100 %. Interpretation: normal. Counseling: I had a detailed discussion with the patient and/or guardian regarding: the historical points, exam findings, and any diagnostic results supporting the discharge/admit diagnosis, lab results, radiology results, the need for further work-up and treatment in the hospital. 01:39 Differential diagnosis: Anemia Anxiety Reaction Bronchitis CHF exacerbation, Chronic jr8 Obstructive Pulmonary Disease Myocardial Infarction pneumonia, Pneumothorax Psychogenic pulmonary edema, Pulmonary Embolism reactive airway disease, Sepsis Thyrotoxosis, Pulmonary HTN. 01:39 ED course: Patient with oxygen saturation of 100% but still tachypneic. Ground glass jr8 opacity present. Raises concern for atypical infection vs COVID 19. Hyperthyroidism present as well with cardiomegaly and elevated BNP. Will admit for further work up . 02:26 ED course: Discussed case with Dr. Redmond for admission for further evaluation of jr8 shortness of breath. He has concerns that we are not equipped to properly manage hyperthyroid patient. Wants us to transfer. . 02:45 ED course: Patient does not want to be transferred at this time. Feeling better. Can jr8 f/u with her online marketing director tomorrow. Stated that if she could not get into her would drive to [facility] system. Stated that if she were to worsen she would immediately come back and would allow us to transfer her at that time. VS stable and patient now in no acute distress. Patient counseled on safety issues with this but still wants to go home. Will d/c her with close return precautions . 05/17 22:47 Order name: Basic Metabolic Panel; Complete Time: 23:50 jr8 05/17 22:47 Order name: CBC with Diff; Complete Time: 23:18 jr8 05/17 22:47 Order name: LFT's; Complete Time: 23:50 8 05/17 22:47 Order name: Magnesium; Complete Time: 23:50 8 05/17 22:47 Order name: NT PRO-BNP; Complete Time: 23:50 8 05/17 22:47 Order name: PT-INR; Complete Time: 23:18 8 05/17 22:47 Order name: Troponin (emerg Dept Use Only); Complete Time: 23:50 8 05/17 22:47 Order name: XRAY Chest (1 view) 05/17 23:18 Order name: T4 Free; Complete Time: 23:50 EDMS 05/17 23:18 Order name: Thyroid Stimulating Hormone; Complete Time: 23:50 EDMS 05/18 00:00 Order name: CT Chest For PE Angio 05/18 01:35 Order name: COVID-19 mg2 05/17 22:47 Order name: EKG; Complete Time: 22:48 8 05/17 22:47 Order name: Cardiac monitoring; Complete Time: 23:10 jr8 05/17 22:47 Order name: EKG - Nurse/Tech; Complete Time: 23:10 8 05/17 22:47 Order name: IV Saline Lock; Complete Time: 23:10 8 05/17 22:47 Order name: Labs collected and sent; Complete Time: 23:10 jr8 05/17 22:47 Order name: O2 Per Protocol; Complete Time: 23:10 8 05/17 22:47 Order name: O2 Sat Monitoring; Complete Time: 23:10 EC:39 Rate is 112 beats/min. Rhythm is regular, Sinus tachycardia. QRS [place] is Normal. PA jr8 interval is normal. QRS interval is normal. QT interval is normal. No Q waves. T waves are Normal. No ST changes noted. Clinical impression: Sinus tachycardia and Right atrial enlargement . Interpreted by me. Reviewed by me. Administered Medications: 05/17 23:57 Not Given (Physician Discretion): Metoprolol 5 mg IVP once; Hold for SBP <100 or HR <60.8 05/18 00:15 Drug: Lasix 40 mg Route: IVP; Site: left forearm; mg2 00:38 Follow up: Response: No adverse reaction; patient urinated mg2 00:15 Drug: Metoprolol 25 mg Route: PO; mg2 01:36 Follow up: Response: No adverse reaction mg2 Disposition: 04:25 Co-signature as Attending Physician, John Paul Cho MD. rn Disposition: 05/18/20 02:59 Discharged to Home. Impression: Thyrotoxicosis [hyperthyroidism], Shortness of breath. - Condition is Stable. - Discharge Instructions: Hyperthyroidism, Shortness of Breath. - Prescriptions for methimazole 5 mg Oral tablet - take 1 tablet by ORAL route once daily; 20 tablet. Metoprolol Tartrate 25 mg Oral Tablet - take 1 tablet by ORAL route 2 times per day with a meal; 20 tablet. - Medication Reconciliation Form, Thank You Letter, Antibiotic Education, Prescription Opioid Use form. - Follow up: Private Physician; When: Tomorrow; Reason: Recheck today's complaints, Continuance of care, Re-evaluation by your physician. - Problem is new. - Symptoms have improved. Signatures: Dispatcher [employer] EDIL John Paul Cho MD MD rn Roszak, Josh, PA PA 8 Radha Jordan RN RN ea Gardose, Michele, RN RN mg2 Corrections: (The following items were deleted from the chart) 05/17 23:17 23:10 THYROID STIMULAT HORMONE+C.LAB.BRZ ordered. [facility] 23:17 23:10 T4 FREE+C.LAB.BRZ ordered. [facility] 05/18 02:51 01:39 Differential diagnosis: Anemia Anxiety Reaction Bronchitis CHF exacerbation, jr8 Chronic Obstructive Pulmonary Disease Myocardial Infarction pneumonia, Pneumothorax Psychogenic pulmonary edema, Pulmonary Embolism reactive airway disease, Sepsis Thyrotoxicity jr8 02:51 02:26 ED course: Discussed case with Dr. Redmond. He has concerns that we are not [facility] equipped to properly manage hyperthyroid patient. Wants us to transfer . jr8 02:57 01:44 Hospitalization Ordered by Tiago Redmond for Observation. Preliminary diagnosis jr8 is Thyrotoxicosis [hyperthyroidism]; Shortness of breath; Abnormal findings on diagnostic imaging of lung. Bed requested for Telemetry/MedSurg (observation). Status is Observation. Condition is Stable. Problem is new. Symptoms have improved. jr8 03:16 02:59 05/18/2020 02:59 Discharged to Home. Impression: Thyrotoxicosis mg2 [hyperthyroidism]; Shortness of breath. Condition is Stable. Forms are Medication Reconciliation Form, Thank You Letter, Antibiotic Education, Prescription Opioid Use. Follow up: Private Physician; When: Tomorrow; Reason: Recheck today's complaints, Continuance of care, Re-evaluation by your physician. Problem is new. Symptoms have improved. jr8
[2020-05-18 03:28] VITALS: BP 111/75; TEMP 98.5; O2SAT 100
--- NOTE | 2020-05-18 07:16 | EKG ---
Test Date: 2020-05-17 Test Time: 23:03:17 Civil Drafting Technician: MG MEASUREMENT RESULTS: Intervals: Rate: 113 LA: 156 QRSD: 92 QT: 350 QTc: 480 [place]: P: 70 LA: 156 QRS: 249 T: 66 INTERPRETIVE STATEMENTS: Sinus tachycardia Possible Left atrial enlargement Right superior axis deviation Incomplete right bundle branch block Anterior infarct, age undetermined Abnormal ECG No previous ECG available for comparison Electronically Signed On 05-18-20 07:15:46 CDT by Jimy Martines
--- NOTE | 2020-05-18 08:19 | RAD REPORT ---
EXAM DESCRIPTION: Nish Single View05/18/2020 12:20 am CLINICAL HISTORY: Shortness breath COMPARISON: none FINDINGS: Mild right lung opacities Left lung appears clear. The heart is moderately enlarged The heart is normal size IMPRESSION: Mild right lung opacities may indicate pneumonia
--- NOTE | 2020-05-18 09:24 | RAD REPORT ---
EXAM DESCRIPTION: CT - Chest For Pe Angio - 05/18/2020 1:05 am CLINICAL HISTORY: DYSPNEA COMPARISON: None Available. TECHNIQUE: CTA of the chest obtained following the uncomplicated intravenous administration of iodin ated contrast. 3-D/MIP reformatted images of the chest available for evaluation. FINDINGS: Chest: Pulmonary arteries: Contrast bolus is adequate.No filling defects identified in the pulmonary arterie s to suggest pulmonary embolus. Thyroid: No abnormalities of the visualized thyroid. Great Vessels: Great vessels have normal anatomic configuration. Thoracic Aorta: No abnormalities of the thoracic aorta identified. Heart: No cardiomegaly, significant pericardial effusion, or coronary artery atherosclerosis Lymph Nodes: No enlarged mediastinal lymph nodes identified. Esophagus: No abnormalities of the esophagus identified. Other: No additional findings. Lungs: Scattered peripheral groundglass opacities predominantly in the right upper and middle lobe. Pleura: No pleural effusion or pneumothorax. Trachea/Airways: No abnormalities of the visualized trachea or airways. Bones: Degenerative endplate spondylosis. Upper Abdomen: Limited images of the upper abdomen demonstrate no definite abnormalities of visualize d portions of the liver, gallbladder, pancreas, spleen, adrenal glands, or kidneys. IMPRESSION: 1. No pulmonary embolus. 2. Scattered groundglass opacities in the right upper and middle lobe. Imaging features can be seen w ith viral pneumonia, though are nonspecific and can occur with a variety of infectious and noninfecti ous processes. PneInd This exam was performed according to our departmental dose-optimization program, which includes autom ated exposure control, adjustment of the mA and/or kV according to patient size and/or use of iterati ve reconstruction technique. Electronically signed by: Ryan Lundberg 05/18/2020 1:19 AM CDT Due to temporary technical issues with the PACS/Fluency reporting system, reports are being signed by the in house radiologist without review as a courtesy to ensure prompt reporting. The interpreting r adiologist is fully responsible for the content of the report.
== END 2020-05-18 03:16 | disposition home or self-care (01) ==
LOC: ER 22:26
DX: E05.90 Thyrotoxicosis, unspecified without thyrotoxic crisis or storm (principal); Z20.828 Contact with and (suspected) exposure to other viral communicable diseases; F17.210 Nicotine dependence, cigarettes, uncomplicated
CPT/HCPCS: 93005; 85025; 80048; 36415; 83735; 85610; 80076; 84443; 84484; 84439; 83880; 71275; 71045; 96374; 99284; U0002; Q9967; J1940

== ENCOUNTER 2020-06-01 06:00 | Observation (INO) | payer OTHER ==
--- OUTSIDE RECORDS SUMMARY | 2020-06-01 06:02 | XMS REPORT | Continuity of Care Document ---
:1975 Author Organization [facility] t Address [address] [place] [address] Care Team Providers Name Role Phone Tyler HOU, Scott Attending Clinician Problems This patient has no known problems. Allergies, Adverse Reactions, Alerts This patient has no known allergies or adverse reactions. Medications This patient has no known medications. Procedures This patient has no known procedures. Encounters Start End Encounter Admission Attending Care Care Encounter Source Date/Time Date/Time Type Type Clinicians Facility Department ID 2020-05-30 2020-05-30 Office SHIVA Scott [id number] 08:14:40 08:44:40 Visit [facility] [id number] Clear [id number] [place] [id number] Medical [address] Results This patient has no known results.
--- OUTSIDE RECORDS SUMMARY | 2020-06-01 06:03 | XMS REPORT | Summary of Care ---
:1975 Author Organization [facility] Address [address] [place] [id number] Care Team Providers Name Role Phone Scott Anderson Primary Care Provider Reason for Referral MRI/CAT Scan (STAT) Status Reason Specialty Diagnoses / Referred By Referred To Procedures Contact Contact New Request Diagnostic Diagnoses SOB (shortness of breath) Jinny, Radiology Procedures CT CHEST PULMONARY ANGIOGRAM RICHARD Menjivar [address] [place] [phone] Reason for Visit Reason Comments Shortness of Breath Auth/Cert Status Reason Specialty Diagnoses / Referred By Referred To Procedures Contact Contact Emergency Medicine [facility] [address] [place] [phone] Fax: Encounter Details Date Type Department Care Team Description 05/20/2020 Emergency [facility] Yolande Stearns FNP [address] [place] [phone] SOB (shortness of Department Aliyah Jessica MD [address] [place] [phone] breath) (Primary Dx) [address] [place] [phone] Allergies No Known Allergiesdocumented as of this encounter (statuses as of 05/20/2020) Medications Medication Sig Dispensed Refills Start Date End Date Status albuterol (VENTOLIN Inhale 2 Puffs 8.5 g 0 04/26/202005/14 Active HFA) 90 every 6 (six) mcg/actuation hours as needed inhalerIndications: for Shortness of URI, acute, SOB Breath or Chest (shortness of tightness for up breath) to 30 days. documented as of this encounter (statuses as of 05/20/2020) Active Problems Problem Noted Date Shortness of breath 05/20/2020 Total knee replacement status 02/09/2019 History of arthritis 01/23/2019 Overview: Added automatically from request for rajinder luna [id number] Morbid obesity with body mass index of 40.0-49.9 01/05 Other depression 12/15/2018 History of tubal ligation 12/15/2018 TOLU (stress urinary incontinence, female) 11/18/2018 Overview: Added automatically from request for rajinder luna [id number] Internal derangement of right knee 10/17/2018 Overview: Added automatically from request for rajinder luna [id number] S/P total hip arthroplasty 07/21/2018 Well woman exam 12/04/2017 Screening for STD (sexually transmitted disease) 12/04 IV drug user 12/04/2017 Tobacco use disorder 12/04/2017 Obesity, unspecified classification, unspecified obesi ty type, unspecified 12/04/2017 whether serious comorbidity present BMI 34.0-34.9,adult 12/04/2017 Thyroid disease 12/04/2017 Enlarged thyroid gland 12/04/2017 documented as of this encounter (statuses as of 05/20/2020) Immunizations Name Administration Dates Next Due TDAP (ADACEL) VACCINE 07/14/2017 documented as of this encounter Social History Tobacco Use Types Packs/Day Years Used Date Current Every Day Smoker Cigarettes 1 30 Smokeless Tobacco: Never Used Comments: 15 per day Alcohol Use Drinks/Week oz/Week Comments No Sex Assigned at Date Recorded Not on file COVID-19 Exposure Response Date Recorded In the last month, have you been in contact with No / Unsure 05/20/2020 9:50 AM CDT someone who was confirmed or suspected to have Coronavirus / COVID-19? documented as of this encounter Last Filed Vital Signs Vital Sign Reading Time Taken Comments Blood Pressure 137/84 05/20/2020 1:30 PM CDT Pulse 107 05/20/2020 1:30 PM CDT Temperature 36.7 C (98.1 F) 05/20/2020 9:53 AM CDT Respiratory Rate 18 05/20/2020 1:30 PM CDT Oxygen Saturation 98% 05/20/2020 1:30 PM CDT Inhaled Oxygen Concentration - - Weight 112.5 kg (248 lb) 05/20/2020 10:54 AM CDT Height - - Body Mass Index 37.71 04/26/2020 11:24 AM CDT documented in this encounter Progress Notes Lulu Almaguer MD - 05/20/2020 2:12 PM CDTShort update note I was called to the ED to admit Ms. Perez to [facility] for COVID rule out as she was having SOB and hypoxia on exertion. On my arrival to the room, the patient was frustrated because she did not want to have a second nasal swab for a COVID PCR. She is frustrated that the negative rapid test was not enough to discontinue COVID precautions. I explained the possibility of false negative results, but she insisted that she did not have COVID and was resentful that we philly not take care of her otherwise. I explained that shecould refuse the PCR and we would still admit her, but in that case, we would need to continue COVIDisolation for her whole admission, which would mean that she could not have visitors and would stay on the COVID floor. She was unhappy with that too. I explained the risks of leaving AMA (hypoxia at home leading to loss of consciousness and possibly ). I also explained what treatment of her pneumonia and hyperthyroidism would entail if she were to stay. She asked for some time to call her and discuss the matter before making her decision. I agreed and stepped out of the room. She subsequently reported to the nurse that she had decided to leave AMA. Admission order canceled. Patient signed out AMA from ED. Lulu Almaguer MD Internal Medicine, PGY-3 [place] Team Pager: [phone] documented in this encounter ED Notes Lissett Willson RN - 05/20/2020 9:51 AM CDTGlo Perez is a 45 year old female presenting to the ER w/ c/o shortness of breath. Reports "my chest hurts when I breathe in". Reports cough. Patient dx with Hyperthyroid at OSH. Patient ambulatory to triage, respirations even and unlabored. Yesika Topete FNP - 05/20/2020 9:49 AM CDT EMERGENCY DEPARTMENT ENCOUNTER [facility] Patient Name: Glo Perez Date of : 1975 45 year old Exam [facility] Primary Care Physician: [facility] Patient Escorted by: Self [9] Mode of Arrival: Personal means [1] EMS Treatment Prior to ED Arrival: n/a TIME CLOCK MECHANIC treatment: None Chief Complaint Chief Complaint Patient presents with Shortness of Breath HPI Patient is a 45 year old female with a hx of hyperthyroidism presents to ED for evaluation and treatment due to SOB, chest pain, coughing, sore throat, generalized body aches and hot flashes since lastmonth. She reports sharp chest pain with radiation to the left arm. Patient is a 35 pk/yr smoker andreports severe productive cough but denies hemoptysis. History provided by: Patient lobster catcher used: No Shortness of Breath Severity: Severe Onset quality: Gradual Duration: 1 month Timing: Constant Progression: Worsening Chronicity: New Context: activity Relieved by: Nothing Worsened by: Activity and coughing Ineffective treatments: None tried Associated symptoms: chest pain, cough, headaches and sore throat Associated symptoms: no abdominal pain, no ear pain, no fever, no hemoptysis and no vomiting Chest pain: Quality: sharp Severity: Moderate Onset quality: Gradual Duration: 3 weeks Timing: Constant Chronicity: New Past Medical History / Immunizations Past Medical History: Diagnosis Date Arthritis Chronic neck pain Depression ongoing, currently taking medication. IV drug abuse Pap smear abnormality of cervix per pt about 20 yrs ago with [facility] [place] Screening for STD (sexually transmitted disease) 12/04/2017 Substance abuse meth use x 10 yrs TOLU (stress urinary incontinence, female) 11/18/2018 Thyroid disease currently taking medication Tobacco use disorder 12/04/2017 Tetanus received in last 5 years: Yes Childhood immunizations: Up-to-date Past Surgical History Past Surgical History: Procedure Laterality Date APPENDECTOMY CONIZATION CERVIX,LOOP ELECTRD KNEE ARTHROSCOPY Right 10/20/2018 Surgeon: Tremaine Tse MD; Location: [facility] OR [facility] TOTAL HIP ARTHROPLASTY Right 07/21/2018 Surgeon: Tremaine Tse MD; Location: [facility] OR [facility] TOTAL KNEE ARTHROPLASTY Right 02/09/2019 Surgeon: Tremaine Tse MD; Location: [facility] OR [facility] TUBAL LIGATION unsure of date Allergies No Known Allergies Social History Tobacco Use Current Every Day Smoker; Smoked an average of 1 pack/day for 30 years; Smoked: Cigarettes. Smokeless Tobacco: Never used smokeless tobacco. Comments: 15 per day Alcohol Use No. Drug Use No. Comments: last use 03/24/18 Sexual Activity Sexually active; Partners: Male; Control/Protection: Surgical. Comments: last sexual intercourse 12/08/2018 Review of Systems Review of Systems Constitutional: Negative for activity change, appetite change, chills and fever. HENT: Positive for sore throat. Negative for ear pain. Eyes: Negative. Respiratory: Positive for cough and shortness of breath. Negative for hemoptysis. Cardiovascular: Positive for chest pain. Gastrointestinal: Negative for abdominal distention, abdominal pain, anal bleeding, blood in stool, constipation, diarrhea, nausea, rectal pain and vomiting. Genitourinary: Negative for bladder incontinence, dysuria, frequency, hematuria, flank pain, decreased urine volume and difficulty urinating. Neurological: Positive for headaches. Negative for weakness. Physical Exam BP (!) 141/88 | Pulse 110 | Temp 36.7 C (98.1 F) (Oral) | Resp 18 | Wt 112.5 kg (248 lb) | SpO2 98% | BMI 37.71 kg/m Physical Exam Vitals signs and nursing note reviewed. Constitutional: Appearance: She is well-developed. Eyes: Pupils: Pupils are equal, round, and reactive to light. Neck: Musculoskeletal: Normal range of motion. Cardiovascular: Rate and Rhythm: Normal rate. Heart sounds: Normal heart sounds. Pulmonary: Effort: Pulmonary effort is normal. No respiratory distress. Breath sounds: No wheezing. Abdominal: General: There is no distension. Palpations: There is no mass. Tenderness: There is no abdominal tenderness. There is no guarding or rebound. Musculoskeletal: Normal range of motion. Skin: General: Skin is warm and dry. Neurological: Mental Status: She is alert and oriented to person, place, and time. Labs Recent Results (from the past 24 hour(s)) CBC with Differential Collection Time: 05/20/20 10:47 AM Result Value Ref Range WBC 9.73 4.30 - 11.10 10*3/L RBC 4.66 3.93 - 5.25 10*6/L HGB 12.4 11.6 - 15.0 g/dL HCT 38.7 35.7 - 45.2 % MCV 83.0 80.6 - 95.5 fL MCH 26.6 25.9 - 32.8 pg MCHC 32.0 31.6 - 35.1 g/dL RDW-SD 43.8 39.0 - 49.9 fL RDW-CV 14.6 12.0 - 15.5 % PLT 280 166 - 358 10*3/L MPV 10.7 9.5 - 12.9 fL NRBC/100 WBC 0.0 0.0 - 10.0 /100 WBCs NRBC x10^3 <0.01 10*3/L GRAN MAT (NEUT) % 77.3 % IMM GRAN % 0.30 % LYMPH % 16.6 % MONO % 4.9 % EOS % 0.7 % BASO % 0.2 % GRAN MAT x10^3(ANC) 7.51 (H) 1.88 - 7.09 10*3/uL IMM GRAN x10^3 0.03 0.00 - 0.06 10*3/uL LYMPH x10^3 1.62 1.32 - 3.29 10*3/uL MONO x10^3 0.48 0.33 - 0.92 10*3/uL EOS x10^3 0.07 0.03 - 0.39 10*3/uL BASO x10^3 <0.03 0.01 - 0.07 10*3/uL Basic Metabolic Panel (NA, K, CL, CO2, GLUCOSE, BUN, CREATININE, CA) Collection Time: 05/20/20 10:47 AM Result Value Ref Range NA 135 135 - 145 mmol/L K 3.8 3.5 - 5.0 mmol/L CL 105 98 - 108 mmol/L CO2 TOTAL 23 23 - 31 mmol/L AGAP 7 2 - 16 BUN 14 7 - 23 mg/dL GLUCOSE 133 (H) 70 - 110 mg/dL CREATININE 0.58 0.50 - 1.04 mg/dL CALCIUM 8.5 (L) 8.6 - 10.6 mg/dL eGFR Calculation (Non-) 111.9 mL/min/1.73m2 eGFR Calculation () 135.6 mL/min/1.73m2 Hepatic Function Panel (ALB, T.PRO, BILI T, BU/BC, ALT, AST, ALK PHOS) Collection Time: 05/20/20 10:47 AM Result Value Ref Range TOTAL BILI 0.8 0.1 - 1.1 mg/dL BILI UNCON 0.9 0.1 - 1.1 mg/dL BILI CONJ 0.0 0.0 - 0.3 mg/dL T PROTEIN 6.6 6.3 - 8.2 g/dL ALBUMIN 3.5 3.5 - 5.0 g/dL ALK PHOS 81 34 - 122 U/L ALTv 26 5 - 35 U/L AST(SGOT) 30 13 - 40 U/L Lipase Serum Collection Time: 05/20/20 10:47 AM Result Value Ref Range LIPASE 16 0 - 220 U/L Troponin I Collection Time: 05/20/20 10:47 AM Result Value Ref Range TROPONIN I 0.012 <=0.034 ng/mL N-TERMINAL PRO-BNP Collection Time: 05/20/20 10:47 AM Result Value Ref Range NT-proBNP 3,200 (H) <=125 pg/mL THYROID STIMULATING HORMONE Collection Time: 05/20/20 10:47 AM Result Value Ref Range TSH <0.02 (L) 0.45 - 4.70 mIU/L FREE T4 Collection Time: 05/20/20 10:47 AM Result Value Ref Range FREE T4 2.15 0.78 - 2.20 ng/dL: COVID-19 (ID NOW RAPID TESTING) Collection Time: 05/20/20 10:47 AM Specimen: NASOPHARYNGEAL SWAB Result Value Ref Range SARS-CoV-2 Rapid ID NOW Not Detected Not Detected Urinalysis Collection Time: 05/20/20 12:01 PM Result Value Ref Range APPEARANCE Clear Clear COLOR Yellow Yellow PH 6.0 4.8 - 8.0 SP GRAVITY 1.042 (H) 1.003 - 1.030 GLU U QUAL Normal Normal BLOOD 2+ (A) Negative KETONES Negative Negative PROTEIN 30 mg/dL (A) Negative UROBILIN 2.0 mg/dL (A) Normal BILIRUBIN Negative Negative NITRITE Negative Negative LEUK SADAF Negative Negative RBC/HPF 61 (H) 0 - 3 HPF WBC/HPF <1 0 - 5 HPF BACTERIA Negative Negative MUCOUS Slight (A) Negative LPF SQ EPITH 2 <=2 HPF aPTT Collection Time: 05/20/20 12:01 PM Result Value Ref Range APTT Patient 29 26 - 36 Seconds POCT Test Collection Time: 05/20/20 12:04 PM Result Value Ref Range POCT PREG negative POCT PREG LOT # [id number] POCT PREG TEST DATE 05/13/20 [facility] on 05/20/20 CT CHEST PULMONARY ANGIOGRAM Narrative CT CHEST PULMONARY ANGIOGRAM HISTORY: 45 years-old; Female; Shortness of breath PE suspected, high pretest prob COMPARISON: CT abdomen pelvis 09/08/2018. TECHNIQUE: Helical CT was performed after the administration of 100 mL Omnipaque-350 intravenous contrast and reconstructed at 1.25 mm slice thickness from lung base to apices, without complication. Display field of view: 41.7 cm. FINDINGS: PULMONARY ARTERIES: Enhancement is adequate. There is no acute or chronic pulmonary embolism in the main pulmonary artery and proximal segmental level. CHEST: Lower neck/thyroid: Heterogeneous thyroid gland with approximately 2.1 cm x 1.6 cm partially calcified right thyroid nodule. Lungs: A central groundglass opacities, more prominent in the right upper lobe. There is diffuse hazy lung parenchyma and smooth septal thickening. Central airway: Bilateral lower lobe bronchiectasis is noted. Pleura: Trace effusion tracking along the major fissures. No thickening or pneumothorax. Thoracic aorta and great vessels: The aorta is normal in diameter. Type I aortic arch three-vessel anatomy. Pulmonary arteries: Main pulmonary trunk measures 3.6 cm. No pulmonary embolism to the extent visualized Heart and pericardium: No detectable coronary arterial calcifications are present. Unremarkable cardiac morphology and pericardium. Lymph nodes: No enlarged thoracic lymph nodes. Mediastinum: Unremarkable. Thoracic spine and chest wall: Multilevel degenerative changes of the spine. Other Lines/Tubes/Devices/Hardware: None Visualized upper abdomen: Unremarkable. Impression No acute pulmonary embolism to the segmental level. Central airspace pulmonary edema with cardiomegaly and trace pleural effusion. Central groundglass opacities may also represent atypical infectious process, including Covid 19 infection. Recommend clinical correlation. Large right thyroid nodule measuring up to 2 cm. Recommend correlate with prior or dedicated ultrasound on nonemergent basis. Small hiatal hernia I, Vaughn Rios MD., have reviewed this study and agree with the above report. Orders and Treatments Orders Placed This Encounter Procedures CT CHEST PULMONARY ANGIOGRAM Urinalysis POCT Test CBC with Differential Basic Metabolic Panel (NA, K, CL, CO2, GLUCOSE, BUN, CREATININE, CA) Hepatic Function Panel (ALB, T.PRO, BILI T, BU/BC, ALT, AST, ALK PHOS) Lipase Serum Troponin I aPTT N-TERMINAL PRO-BNP THYROID STIMULATING HORMONE FREE T4 COVID-19 (ID NOW RAPID TESTING) CONSULT INTERNAL MEDICINE Orders Placed This Encounter Medications iohexol (OMNIPAQUE 350 BULK-100 mL) injection 100 mL propranolol (INDERAL) tablet 60 mg DISCONTD: ketorolac (TORADOL) injection 30 mg ketorolac (TORADOL) injection 30 mg Procedures Procedures Notes ED Course as of May 20 1323SatMay 20, 2020 1317 No acute pulmonary embolism to the segmental level. Central airspace pulmonary edema with cardiomegaly and trace pleural effusion. Central groundglass opacities may also represent atypical infectious process, including Covid 19 infection. Recommend clinical correlation. Large right thyroid nodule measuring up to 2 cm. Recommend correlate with prior or dedicated ultrasound on nonemergent basis. Discussed findings with Dr Jessica. She accepted patient for admission for further medical care CT CHEST PULMONARY ANGIOGRAM [FI] 1313 Patient failed the 1 minute walk test. O2 saturation dropped to 87%. She was in respiratory distress and tachycardic.Patient will be admitted for further medical care [FI] ED Course User Index [FI] Yesika Stearns FNP Diagnosis ICD-10-CM ICD-9-CM 1. SOB (shortness of breath) R06.02 786.05 Disposition & Follow Up ED Disposition ED Disposition Condition Comment Admit - Observation Patients undergoing COVID-19 testing are cared for in a designated unit and care team. Is this patient being tested for COVID-19?: Yes Treatment Team: GALCV1 [7262060] Primary reason for admission: Shortness of breath [786.05.ICD-9-CM] Is (or was) this a planned re-admission?: No Patient's Medications START taking these medications No medications on file CONTINUE taking these medications which have NOT CHANGED ALBUTEROL (VENTOLIN HFA) 90 MCG/ACTUATION INHALER Inhale 2 Puffs every 6 (six) hours as needed for Shortness of Breath or Chest tightness for up to 30 days. START taking Modified Medications as Prescribed No medications on file STOP taking these medications No medications on file MDM Coding Associated attestation - Bhupinder Arshad MD - 05/20/2020 2:08 PM CDTAddendum I was personally available for consultation in the Emergency Department during this encounter and patient evaluation by Jinny. documented in this encounter Miscellaneous Notes ED Nurse Note - Noe [facility] RN - 05/20/2020 2:14 PM CDTPatient wanting to leave AMA. Admitting MD and this RN at bedside to explain risks associated with leaving AMA. Patient verbalized understanding. Patient refusing to sign AMA form. IM MD at bedside andinformed. BIC contacted and informed of AMA status. D Nurse Note - Noe [facility] RN - 05/20/2020 1:51 PM CDTIM at bedside D Nurse Note - Noe Marion RN - 05/20/2020 1:24 PM CDTThis RN noted to spend ~15-20 minutes explaining ED processes/procedures. Patient educated on efficacy of rapid COVID test and reviewed POC/results. Patient verbalized understanding. Will continue to monitor. D Nurse Note - Noe Marion RN - 05/20/2020 12:45 PM CDTPatient noted to drop 40mg of propanolol when handed medication. Pharmacy notified along with MAINTENANCE MECHANIC MILLWRIGHT jodi. Pending medication to be re-sended D Nurse Note - Noe Marion RN - 05/20/2020 12:22 PM CDTMedication emar'd at this time. D Nurse Note - Noe Marion RN - 05/20/2020 11:22 AM CDTPatient en roue to CT at this time. Will repeat blood work upon return . D Nurse Note - Noe Marion RN - 05/20/2020 10:56 AM CDTPatient appears less anxious and reports ease/comfort at this time. Pending results D Nurse Note - Noe Marion RN - 05/20/2020 10:28 AM CDTNP jodi at bedside D Nurse Noe Nugent RN - 05/20/2020 10:16 AM CDTGlo Korina Perez is a 45 year old female who presents to the ED with c.c of SOB, dry non-productive cough, and CP that worsen s upon inspiration x 1.5 months. Patient reports being seen and d/c from OSH with intent to follow up with PCP. Patient ddi not follow up with PCP and reports "its getting worse". Patient reports pmhx of "thyroid issues" and "my heart valve is messed up." patient denying pmhx of CHF or COPD. ED processes and procedures explained. Patient reports "COVID IS A CROCK PIECE OFSHIT" when explained to need of possible COVID swab. Patient notably more anxious when covid swab ismentioned. MAINTENANCE MECHANIC MILLWRIGHT to assess before blood work to be initiated. D Nurse Note - Noe Marion RN - 05/20/2020 10:04 AM CDTPatient EKG completed at this time. D Nurse Note - Noe Marion RN - 05/20/2020 9:58 AM CDTPatient arriving via WC at this time. NAD noted. Patient AOx4. GCS 15. ABC's appear intact at thistime. Will assess. documented in this encounter Plan of Treatment Date Type Specialty Care Team Description 05/25/2020 Office Visit Otolaryngology Susan Gonzalez M D [address] [place], [place] [id number] Health Maintenance Due Date Last Done Comments PNEUMOCOCCAL 0-64 YEARS COMBINED 1980 SERIES (1 of 1 - PPSV23) Breast Cancer Screening (MAMMOGRAM) 11/09/2018 11/09/2017 ( Previously completed) INFLUENZA VACCINE (#1) 2020 09/12/2018 Depression Screening 07/15/2020 07/15/2019 PAP SMEAR 12/04/2020 12/04/2017, 06/03/2006 Colorectal Cancer Screening 2024 DTaP,Tdap,and Td Vaccines (2 - Td) 07/14/2027 07/14/2017 documented as of this encounter Goals Goal Patient Goal Associated Recent Patient-Stated? Author Type Problems Progress Quit using Tobacco Use No [place]man, tobacco Deandra Perez MA (cigarettes, smokeless, etc) documented as of this encounter Implants Implanted Type Area Channel Process Supervisor Device Shelf Model / Identifier Expiration Serial / Lot Date Shell Acetabular G7 Cementless Limited 3 Hole Sizr F 56mm Tammy Ref#[id number] Acetabular Right: Biomet 06/08/2028 [id number] / Implanted: Qty: 1 on 07/21/2018 by Tremaine Godinez MD at [facility] Cup Hip 6 [id number] / [id number] Liner G7 Acetabular Neutral Size F 40mm Tammy Ref# [id number] Ac etabular Right: Biomet 06/08/2023 [id number] / Implanted: Qty: 1 on 07/21/2018 by Tremaine Godinez MD at [facility] Liner Hip 6 [id number] / [id number] Bone Cement Injector 1x40 High Viscosity Tammy Ref#[id number] - [id number] CEMENT Right: Biomet 10/13/2022 [id number] / Implanted: Qty: 1 on 02/09/2019 by Tremaine Godinez MD at [facility] Knee 8 [id number] / [id number] Ceraminc Head 40 Mm Biomet #650-1058 - [id number] Femoral Head Right: Biomet 05/01/2027 [id number] / Implanted: Qty: 1 on 07/21/2018 by Tremaine Godinez MD at [facility] Hip 2 [id number] / [id number] Femoral Stem Cementless Complete Reduced Size 9 Tammy Ref#[id number] Femur Right: Biomet 05/26/2028 [id number] / Implanted: Qty: 1 on 07/21/2018 by Tremaine Godinez MD at [facility] Hip 6 [id number] / [id number] Adapter Taper [place] Biomet #650-1066 - [id number] HIP Right : Biomet 03/04/2028 [id number] / Implanted: Qty: 1 on 07/21/2018 by Tremaine Godinez MD at [facility] Hip 2 [id number] / [id number] Femoral Cementless Right Porous 60mm Biomet #[id number] [[id number]] KNEE Right: Biomet 08/29/2028 [id number] / Implanted: Qty: 1 on 02/09/2019 by Tremaine Godinez MD at [facility] Knee 8 [id number] / [id number] Component Primary Tibial Modular Tray Ce mentless 71mm Vanguard Biomet Ref#[id number] KNEE Right: Biomet 05/28/2022 [id number] / Implanted: Qty: 1 on 02/09/2019 by Tremaine Godinez MD at [facility] Knee 1 [id number] / [id number] Bearing Tibial Articular 71mm/75mm Vanguard [employer]omet Ref#[id number] KNEE Right: Biomet 12/23/2023 [id number] / Implanted: Qty: 1 on 02/09/2019 by Tremaine Godinez MD at [facility] Knee 8 [id number] / [id number] Screw, Tammy Bone 6.5x20 Self-Tap #[id number] - [id number] S CREW Right: Tammy 01/11/202725-3458-401-20 / Implanted: Qty: 1 on 07/21/2018 by Tremaine Godinez MD at [facility] Hip 6 [id number] / [id number] Screw, Tammy Bone 6.5x20 Self-Tap #[id number] - [id number] S CREW Right: Tammy 03/13/202889-1403-046-20 / Implanted: Qty: 1 on 07/21/2018 by Tremaine Godinez MD at [facility] Hip 6 [id number] / [id number] Screw Bone 6.5x30mm Lp St Biomet #[id number] - [id number] Right: Biomet 12/16/2028 [id number] / Implanted: Qty: 2 on 02/09/2019 by Tremaine Godinez MD at [facility] Knee 8 / [id number] Screw Bone 6.5x30mm Lp St Biomet #[id number] - [id number] Right: Biomet 07/24/2028 [id number] / Implanted: Qty: 1 on 02/09/2019 by Tremaine Godinez MD at [facility] Knee 5 [id number] / [id number] Patella 8 X 31mm Biomet#[id number] - [id number] Right: Biomet 12/18/2023 [id number] / Implanted: Qty: 1 on 02/09/2019 by Tremaine Godinez MD at [facility] Knee 8 [id number] / [id number] Stem Finned Primary 40mm Biomet #[id number] - [id number] Right: Biomet 12/18/2028 [id number] / Implanted: Qty: 1 on 02/09/2019 by Tremaine Godinez MD at [facility] Knee 5 [id number] / [id number] Screw Bone 6.5x30mm Lp St Biomet #[id number] - [id number] Right: Biomet 11/26/2028 [id number] / Implanted: Qty: 1 on 02/09/2019 by Tremaine Godinez MD at [facility] Knee 5 [id number] / [id number] documented as of this encounter Procedures Procedure Name Priority Date/Time Associated Comments Diagnosis POCT TEST EDSON 05/20/2020 12:04 SOB (shortness of Results for this PM CDT breath) procedure are i n the results section. URINALYSIS STAT 05/20/2020 12:01 SOB (shortness of Result s for this PM CDT breath) procedure are i n the results section. ACTIVATED PARTIAL STAT 05/20/2020 12:01 SOB (shortness of R esults for this THRMPLAS PETER PM CDT breath) procedure are i n the results section. CT CHEST PULMONARY STAT 05/20/2020 11:35 SOB (shortness of Results for this ANGIOGRAM AM CDT breath) procedure are i n the results section. COVID-19 (ID NOW STAT 05/20/2020 10:47 SOB (shortness of Re sults for this RAPID TESTING) AM CDT breath) procedure are in the results section. N-TERMINAL PRO-BNP STAT 05/20/2020 10:47 SOB (shortness of Results for this AM CDT breath) procedure are i n the results section. CBC WITH DIFF STAT 05/20/2020 10:47 SOB (shortness of Resul ts for this AM CDT breath) procedure are i n the results section. BASIC METABOLIC PANEL STAT 05/20/2020 10:47 SOB (shortness of Results for this (NA, K, CL, CO2, AM CDT breath) procedure a re in GLUCOSE, BUN, the results CREATININE, CA) section. HEPATIC FUNCTION STAT 05/20/2020 10:47 SOB (shortness of Re sults for this PANEL (38124) AM CDT breath) procedure are in (ALB,T.PRO,BILI the results T,BU/BC,ALT,AST,ALK section. PHOS) THYROID STIMULATING STAT 05/20/2020 10:47 SOB (shortness of Results for this HORMONE AM CDT breath) procedure are i n the results section. FREE T4 STAT 05/20/2020 10:47 SOB (shortness of Result s for this AM CDT breath) procedure are i n the results section. TROPONIN I STAT 05/20/2020 10:47 SOB (shortness of Result s for this AM CDT breath) procedure are i n the results section. LIPASE STAT 05/20/2020 10:47 SOB (shortness of Result s for this AM CDT breath) procedure are i n the results section. EKG-12 LEAD STAT 05/20/2020 10:13 AM CDT documented in this encounter Results POCT Test (05/20/2020 12:04 PM CDT) Pathologist Sig nature POCT PREG negative POCT PREG LOT # [id number] POCT PREG TEST DATE 05/13/20 Specimen Urine - URINE, CLEAN CATCH aPTT (05/20/2020 12:01 PM CDT) Pathologist Sig nature APTT Patient 29 26 - 36 Seconds [facility] Specimen Blood - VENOUS Performing Organization Address City/State/Zipcode Phone Number [facility] CLIA: [id number] [place] [address] [place] [address] Urinalysis (05/20/2020 12:01 PM CDT) Pathologist Sig nature APPEARANCE Clear Clear [facility] COLOR Yellow Yellow [facility] PH 6.0 4.8 - 8.0 [facility] SP GRAVITY 1.042 (H) 1.003 - 1.030 [facility] GLU U QUAL Normal Normal [facility] BLOOD 2+ (A) Negative [facility] KETONES Negative Negative [facility] PROTEIN 30 mg/dL (A) Negative [facility] UROBILIN 2.0 mg/dL (A) Normal [facility] BILIRUBIN Negative Negative [facility] NITRITE Negative Negative [facility] LEUK SADAF Negative Negative [facility] RBC/HPF 61 (H) 0 - 3 HPF [facility] WBC/HPF <1 0 - 5 HPF [facility] BACTERIA Negative Negative [facility] MUCOUS Slight (A) Negative LPF [facility] SQ EPITH 2 <=2 HPF [facility] Specimen Urine - URINE, CLEAN CATCH Performing Organization Address City/State/Zipcode Phone Number [facility] CLIA: [id number] [place] [address] [place] [address] CT CHEST PULMONARY ANGIOGRAM (05/20/2020 11:35 AM CDT) Specimen Impressions Performed At PACS/VR/DOSE No acute pulmonary embolism to the segme ntal level. Central airspace pulmonary edema with ca rdiomegaly and trace pleural effusion. Central groundglass opacities may also represent atypical infectious process, including Covid 19 i nfection. Recommend clinical correlation. Large right thyroid nodule measuring up to 2 cm. Recom mend correlate with prior or dedicated ultrasound on nonemer gent basis. Small hiatal hernia I, Vaughn Rios MD., have reviewed thi s study and agree with the above report. Narrative Performed At CT CHEST PULMONARY ANGIOGRAM PACS/VR/DOSE HISTORY: 45 years-old; Female; Shortness of breath PE suspected, high pretest prob COMPARISON: CT abdomen pelvis 09/08/2018 . TECHNIQUE: Helical CT was performed after the admi nistration of 100 mL Omnipaque-350 intravenous contrast and r econstructed at 1.25 mm slice thickness from lung base to apices, without complicati on. Display field of view: 41.7 cm. FINDINGS: PULMONARY ARTERIES: Enhancement is adequate. There is no acute or chronic pulmonary embolism in the main pulmonary artery and proximal s egmental level. CHEST: Lower neck/thyroid: Heterogeneous thyroid gland with a pproximately 2.1 cm x 1.6 cm partially calcified right thyroid nodule. Lungs: A central groundglass opacities, more prominent in the right upper lobe. There is diffuse hazy lung parenchyma and smooth septal thickening. Central airway: Bilateral lower lobe bro nchiectasis is noted. Pleura: Trace effusion tracking along the major fissur es. No thickening or pneumothorax. Thoracic aorta and great vessels: The aorta is normal in diameter. Type I aortic arch three-vessel anatomy. Pulmonary arteries: Main pulmonary trunk measures 3.6 cm. No pulmonary embolism to the extent visualized Heart and pericardium: No detectable coronary arterial calcifications are present. Unremarkable cardiac morphology and pericardium. Lymph nodes: No enlarged thoracic lymph nodes. Mediastinum: Unremarkable. Thoracic spine and chest wall: Multileve l degenerative changes of the spine. Other Lines/Tubes/Devices/Hardware: None Visualized upper abdomen: Unremarkable. Procedure Note [facility], Radiant Results Inft User - 2019 1:[address] CHEST PULMONARY ANGIOGRAM HISTORY: 45 years-old; Female; Shortness of breath PE suspected, high pretest prob COMPARISON: CT abdomen pelvis 09/08/2018 . TECHNIQUE: Helical CT was performed af ter the administration of 100 mL Omnipaque-350 intravenous contrast and r econstructed at 1.25 mm slice thickness from lung base to apices, with out complication. Display field of view: 41.7 cm. FINDINGS: PULMONARY ARTERIES: Enhancement is adequate. There is no acu te or chronic pulmonary embolism in the main pulmonary artery and proximal s egmental level. CHEST: Lower neck/thyroid: Heterogeneous thyroi d gland with approximately 2.1 cm x 1.6 cm partially calcified right thyroid nodule. Lungs: A central groundglass opacities, more prominent in the right upper lobe. There is diffuse hazy lung parench yma and smooth septal thickening. Central airway: Bilateral lower lobe bro nchiectasis is noted. Pleura: Trace effusion tracking along th e major fissures. No thickening or pneumothorax. Thoracic aorta and great vessels: The ao rta is normal in diameter. Type I aortic arch three-vessel anatomy. Pulmonary arteries: Main pulmonary trunk measures 3.6 cm. No pulmonary embolism to the extent visualized Heart and pericardium: No detectable cor onary arterial calcifications are present. Unremarkable cardiac morphology and pericardium. Lymph nodes: No enlarged thoracic lymph nodes. Mediastinum: Unremarkable. Thoracic spine and chest wall: Multileve l degenerative changes of the spine. Other Lines/Tubes/Devices/Hardware: None Visualized upper abdomen: Unremarkable. IMPRESSION No acute pulmonary embolism to the segme ntal level. Central airspace pulmonary edema with ca rdiomegaly and trace pleural effusion. Central groundglass opacities may also represent atypical infectious process, including Covid 19 i nfection. Recommend clinical correlation. Large right thyroid nodule measuring up to 2 cm. Recommend correlate with prior or dedicated ultrasound on nonemer gent basis. Small hiatal hernia I, Vaughn Rios MD., have reviewed thi s study and agree with the above report. Performing Organization Address City/State/Zipcode Phone Number PACS/VR/DOSE COVID-19 (ID NOW RAPID TESTING) (05/20/2020 10:47 AM CDT) SARS-CoV-2 Rapid ID Not Detected Not Detected [facility] Specimen Swab - NASOPHARYNGEAL SWAB Narrative Performed At ID NOW COVID-19 Assay is an isothermal nucleic acid [facility] amplification test intended for the qualitative detect ion of nucleic acid from SARS-CoV-2 viral RNA in nasopharynge al ([employer]) specimens. It is used under Emergency Use Authori zation (EUA) by FDA. The limit of detection (LOD) of the assa y is 125 Genome Equivalents/mL. A positive result is indicative of the presence of SARS-CoV-2 RNA. Clinical correlation with patient hi story and other diagnostic information is necessary to deter mine patient infection status. A negative (Not Detected) result does not preclude SARS-CoV-2 infection. In patients with clinical sympto ms and other tests that are consistent with SARS-CoV-2 infect ion, negative results should be treated as presumptive nega tive and a new specimen should be tested with alternative P CR molecular test. Invalid: Please collect a new specimen for repeat juli ent testing if clinically indicated. Performing Organization Address [facility] Phone Number [facility] CLIA: [id number] [place] [address] [place] [address] FREE T4 (05/20/2020 10:47 AM CDT) Pathologist Sig nature FREE T4 2.15 0.78 - 2.20 ng/dL: [facility] Specimen Blood - VENOUS Performing Organization Address City/[facility]/Zipcode Phone Number [facility] CLIA: [id number] [place] [address] [place] [address] THYROID STIMULATING HORMONE (05/20/2020 10:47 AM CDT) Pathologist Sig nature TSH <0.02 (L) 0.45 - 4.70 mIU/L [facility] S Specimen Blood - VENOUS Performing Organization Address [facility] Phone Number [facility] CLIA: [id number] [place] [address] [place] [address] N-TERMINAL PRO-BNP (05/20/2020 10:47 AM CDT) Pathologist Sig [facility] NT-proBNP 3,200 (H) <=125 pg/mL [facility] Specimen Blood - VENOUS Narrative Performed At Biotin has been reported to cause a negative bias, int erpret [facility] results relative to patient's use of biotin. Performing Organization Address [facility] Phone Number [facility] CLIA: [id number] [place] [address] [place] [address] Troponin I (05/20/2020 10:47 AM CDT) [facility] TROPONIN I 0.012 <=0.034 ng/mL [facility] Specimen Blood - VENOUS Narrative Performed At Equal or Less than 0.034 ng/ml---Normal [facility] Note: Cardiac troponin begins to rise 3-4 hours after the onset of ischemia. Repeat in 4-6 hours if the sample w as drawn within 3-4 hours of the onset of the symptom and found normal. Between 0.035 and 0.120 ng/mL--- Borderline. Questiona ble myocardial injury or necrosis Note: Serial measurement may be necessary to confirm o r exclude the diagnosis of myocardial injury or necrosis ; Clinical correlation (symptoms, EKGs, imaging studies, and others) required; Repeat in 4-6 hours if clinically indicated. Equal or Higher than 0.121 ng/mL---Abnormal. Myocardia l Injury or Necrosis Likely Biotin has been reported to cause a negative bias, int erpret results relative to patient's use of biotin. Performing Organization Address [facility] Phone Number [facility] CLIA: [id number] [place] [address] [phone] 301 [facility] Lipase Serum (05/20/2020 10:47 AM CDT) Pathologist [facility] [employer] LIPASE 16 0 - 220 U/L [facility] Specimen Blood - VENOUS Performing Organization Address [facility] [place] Phone Number [facility] CLIA: [id number] [place] [address] [phone] [facility] Hepatic Function Panel (ALB, T.PRO, BILI T, BU/BC, ALT, AST, ALK PHOS) (05/20/2020 10:47 AM CDT) Pathologist Sig nature TOTAL BILI 0.8 0.1 - 1.1 mg/dL [facility] BILI UNCON 0.9 0.1 - 1.1 mg/dL [facility] BILI CONJ 0.0 0.0 - 0.3 mg/dL [facility] T PROTEIN 6.6 6.3 - 8.2 g/dL [facility] ALBUMIN 3.5 3.5 - 5.0 g/dL [facility] ALK PHOS 81 34 - 122 U/L [facility] ALTv 26 5 - 35 U/L [facility] AST(SGOT) 30 13 - 40 U/L [facility] Specimen Blood - VENOUS Performing Organization Address City/State/Zipcode Phone Number [facility] CLIA: [id number] [place], [place] [id number] [address] [place] [address] Basic Metabolic Panel (NA, K, CL, CO2, GLUCOSE, BUN, CREATININE, CA) (05/20/2020 10:47 AM CDT) Pathologist Sig nature NA 135 135 - 145 [facility] mmol/L SERVICES K 3.8 3.5 - 5.0 [facility] mmol/L SERVICES CL 105 98 - 108 mmol/L [facility] CO2 TOTAL 23 23 - 31 mmol/L [facility] AGAP 7 2 - 16 [facility] BUN 14 7 - 23 mg/dL [facility] GLUCOSE 133 (H) 70 - 110 mg/dL [facility] CREATININE 0.58 0.50 - 1.04 [facility] mg/dL SERVICES CALCIUM 8.5 (L) 8.6 - 10.6 [facility] mg/dL SERVICES eGFR Calculation 111.9 mL/min/1.73m2 [facility] (Non- SERVICES Mongolian) eGFR Calculation 135.6 mL/min/1.73m2 [facility] () SERVICES Specimen Blood - VENOUS Narrative Performed At Association of Glomerular Filtration Rate (GFR) and St aging [facility] of Kidney Disease* + + +------- ------ + | GFR (mL/min/1.73 m2) | With Kidney Damage | Wi thout Kidney Damage + + +------- ------ + | >90 | Stage one | Normal + + +------- ------ + | 60-89 | Stage two | Decreased GFR + + +------- ------ + | 30-59 | Stage three | Stage three + + +------- ------ + | 15-29 | Stage four | Stage four + + +------- ------ + | <15 (or dialysis) | Stage five | Stage five + + +------- ------ + *Each stage assumes the associated GFR level has been in effect for at least three months. Stages 1 to 5, wit h or without kidney disease, indicate chronic kidney disease. Notes: Determination of stages one and two (with eGFR >59mL/min/1.73 m2) requires estimation of kidney damag e for at least three months as defined by structural or func tional abnormalities of the kidney, manifested by either: Pathological abnormalities or Markers of kidney damage (including abnormalities in the composition of the blo od or urine or abnormalities in imaging tests) . Performing Organization Address City/State/Zipcode Phone Number [facility] CLIA: [id number] [place] [address] [place] [address] CBC with Differential (05/20/2020 10:47 AM CDT) Pathologist Sig nature WBC 9.73 4.30 - 11.10 [facility] 10*3/L SERVICES RBC 4.66 3.93 - 5.25 [facility] 10*6/L SERVICES HGB 12.4 11.6 - 15.0 [facility] g/dL SERVICES HCT 38.7 35.7 - 45.2 % [facility] MCV 83.0 80.6 - 95.5 fL [facility] MCH 26.6 25.9 - 32.8 pg [facility] MCHC 32.0 31.6 - 35.1 [facility] g/dL SERVICES RDW-SD 43.8 39.0 - 49.9 fL [facility] RDW-CV 14.6 12.0 - 15.5 % [facility] PLT 280 166 - 358 [facility] 10*3/L SERVICES MPV 10.7 9.5 - 12.9 fL [facility] NRBC/100 WBC 0.0 0.0 - 10.0 /100 [facility] WBCs SERVICES NRBC x10^3 <0.01 10*3/L [facility] GRAN MAT (NEUT) % 77.3 % [facility] IMM GRAN % 0.30 % [facility] LYMPH % 16.6 % [facility] MONO % 4.9 % [facility] EOS % 0.7 % [facility] BASO % 0.2 % [facility] GRAN MAT x10^3(ANC) 7.51 (H) 1.88 - 7.09 [facility] 10*3/uL SERVICES IMM GRAN x10^3 0.03 0.00 - 0.06 [facility] 10*3/uL SERVICES LYMPH x10^3 1.62 1.32 - 3.29 [facility] 10*3/uL SERVICES MONO x10^3 0.48 0.33 - 0.92 [facility] 10*3/uL SERVICES EOS x10^3 0.07 0.03 - 0.39 [facility] 10*3/uL SERVICES BASO x10^3 <0.03 0.01 - 0.07 [facility] 10*3/uL SERVICES Specimen Blood - VENOUS Performing Organization Address City/State/Zipcode Phone Number [facility] CLIA: [id number] [place], [place] [id number] [address] [place] [address] documented in this encounter Visit Diagnoses Diagnosis SOB (shortness of breath) - Primary Shortness of breath Shortness of breath documented in this encounter Administered Medications Medication Order MAR Action Action Date Dose Rate Site iohexol (OMNIPAQUE 350 BULK-100 Given 05/20/2020 11:28 AM CDT 10 0 mL mL) injection 100 mL 100 mL, Intravenous, ONCE, 1 dose, Sat05/20/20 at 1145, Routine ketorolac (TORADOL) injection 30 mg Given 05/20/2020 1:00 PM CDT 30 mg 30 mg, Slow IV Push, ONCE, 1 dose, Sat05/20/20 at 1400, [facility], sociology faculty member approving Restricted medication: PK JENSEN propranolol (INDERAL) tablet 60 mg Given 05/20/2020 12:45 PM CDT 60 mg 60 mg, Oral, ONCE, 1 dose, Sat05/20/20 at 1315, Routine documented in this encounter Additional Health Concerns Infection Onset Date Last Indicated Resolved Time COVID-19 Rule Out 05/18/2020 05/20/2020 05/20/2020 11: 53 AM CDT documented as of this encounter Insurance Payer Benefit Plan / Subscriber ID Effective Dates Phone Addre ss [facility] STAR [id number] 2018-Present Medicaid COMM PLAN - MANAGED MEDICAID documented as of this encounter Advance Directives Name Relationship Healthcare Agent Communication Relationship Araceli Aguila Mother Health Care Agent
--- OUTSIDE RECORDS SUMMARY | 2020-06-01 06:03 | XMS REPORT | Summary of Care ---
:1975 Author Organization [facility] - Health Address [address] [place] [address] Care Team Providers Name Role Phone Scott Anderson Primary Care Provider Encounter Details Date Type Department Care Team Description 05/18/2020 Orders Only [facility] Doctor Unassigned, No [address] [facility] [place] [address] [address] [place] [address] Allergies No Known Allergiesdocumented as of this encounter (statuses as of 05/18/2020) Medications Medication Sig Dispensed Refills Start Date End Date Status albuterol (VENTOLIN Inhale 2 Puffs 8.5 g 0 04/26/202005/14 Active HFA) 90 every 6 (six) mcg/actuation hours as needed inhalerIndications: for Shortness of URI, acute, SOB Breath or Chest (shortness of tightness for up breath) to 30 days. documented as of this encounter (statuses as of 05/18/2020) Active Problems Problem Noted Date Total knee replacement status 02/09/2019 History of arthritis 01/23/2019 Overview: Added automatically from request for rajinder carrasco [id number] Morbid obesity with body mass index of 40.0-49.9 01/05 Other depression 12/15/2018 History of tubal ligation 12/15/2018 TOLU (stress urinary incontinence, female) 11/18/2018 Overview: Added automatically from request for rajinder carrasco [id number] Internal derangement of right knee 10/17/2018 Overview: Added automatically from request for rajinder carrasco [id number] S/P total hip arthroplasty 07/21/2018 Well woman exam 12/04/2017 Screening for STD (sexually transmitted disease) 12/04 IV drug user 12/04/2017 Tobacco use disorder 12/04/2017 Obesity, unspecified classification, unspecified obesi ty type, unspecified 12/04/2017 whether serious comorbidity present BMI 34.0-34.9,adult 12/04/2017 Thyroid disease 12/04/2017 Enlarged thyroid gland 12/04/2017 documented as of this encounter (statuses as of 05/18/2020) Immunizations Name Administration Dates Next Due TDAP (ADACEL) VACCINE 07/14/2017 documented as of this encounter Social History Tobacco Use Types Packs/Day Years Used Date Current Every Day Smoker Cigarettes 1 30 Smokeless Tobacco: Never Used Comments: 15 per day Alcohol Use Drinks/Week oz/Week Comments No Sex Assigned at Date Recorded Not on file documented as of this encounter Last Filed Vital Signs Not on filedocumented in this encounter Plan of Treatment Health Maintenance Due Date Last Done Comments [...] of this encounter Implants Implanted Type Area Pharmacy Manager Device Shelf Model / Identifier Expiration Serial / Lot Date Shell Acetabular G7 Cementless Limited 3 Hole Sizr F 56mm Tammy Ref#[id number] Acetabular Right: Biomet 06/08/2028 [id number] / Implanted: Qty: 1 on 07/21/2018 by Tremaine Godinez MD at [facility] Cup Hip 6 [id number] / [id number] Liner G7 Acetabular Neutral Size F 40mm Tammy Ref# [id number] Ac etabular Right: Biomet 06/08/2023 [id number] / Implanted: Qty: 1 on 07/21/2018 by Tremaine Godinez MD at [facility] Liner Hip 6 [id number] / [id number] Bone Cement Injector 1x40 High Viscosity Tammy Ref#11 [id number] - [id number] CEMENT Right: Biomet 10/13/2022 [id number] / Implanted: Qty: 1 on 02/09/2019 by Tremaine Godinez MD at [facility] Knee 8 [id number] / [id number] Ceraminc Head 40 Mm Biomet #650-1058 - [id number] Femoral Head Right: Biomet 05/01/2027 650-1058 / Implanted: Qty: 1 on 07/21/2018 by Tremaine Godinez MD at [facility] Hip 2 [id number] / [id number] Femoral Stem Cementless Complete Reduced Size 9 Tammy Ref#5 [id number] Femur Right: Biomet 05/26/2028 [id number] / Implanted: Qty: 1 on 07/21/2018 by Tremaine Godinez MD at [facility] Hip 6 [id number] / [id number] Adapter Taper [place] Biomet #650-1066 - [id number] Right : Biomet 03/04/2028 [id number] / Implanted: Qty: 1 on 07/21/2018 by Tremaine Godinez MD at [facility] Hip 2 [id number] / [id number] Femoral Cementless Right Porous 60mm Biomet #[id number] [[id number]] KNEE Right: Biomet 08/29/2028 [id number] / Implanted: Qty: 1 on 02/09/2019 by Tremaine Godinez MD at [facility] Knee 8 [id number] / [id number] Component Primary Tibial Modular Tray Ce mentless 71mm Vanguard Biomet Ref#[id number] KNEE Right: Biomet 05/28/2022 [id number] / Implanted: Qty: 1 on 02/09/2019 by Tremaine Godinez MD at [facility] Knee 1 [id number] / [id number] Bearing Tibial Articular 71mm/75mm Vanguard [employer]omet Ref#[id number] KNEE Right: Biomet 12/23/2023 [id number] / Implanted: Qty: 1 on 02/09/2019 by Tremaine Godinez MD at [facility] Knee 8 [id number] / [id number] Screw, Tammy Bone 6.5x20 Self-Tap #11-4625-774-20 - [id number] S CREW Right: Tammy 01/11/202725-1167-467-20 / Implanted: Qty: 1 on 07/21/2018 by Tremaine Godinez MD at [facility] Hip 6 [id number] / [id number] Screw, Tammy Bone 6.5x20 Self-Tap #39-3209-325-20 - [id number] S CREW Right: Tammy 03/13/202883-9766-739-20 / Implanted: Qty: 1 on 07/21/2018 by Tremaine Godinez MD at [facility] Hip 6 [id number] / [id number] Screw Bone 6.5x30mm Lp St Biomet #034980 - [id number] Right: Biomet 12/16/2028 [id number] / Implanted: Qty: 2 on 02/09/2019 by Tremaine Godinez MD at [facility] Knee 8 / [id number] Screw Bone 6.5x30mm Lp St Biomet #[id number] - [id number] Right: Biomet 07/24/2028 [id number] / Implanted: Qty: 1 on 02/09/2019 by Tremaine Godinez MD at [facility] Knee 5 [id number] / [id number] Patella 8 X 31mm Biomet#838981 - [id number] Right: Biomet 12/18/2023 [id number] / Implanted: Qty: 1 on 02/09/2019 by Tremaine Godinez MD at [facility] Knee 8 [id number] / [id number] Stem Finned Primary 40mm Biomet #[id number] - [id number] Right: Biomet 12/18/2028 [id number] / Implanted: Qty: 1 on 02/09/2019 by Tremaine Godinez MD at [facility] Knee 5 [id number] / [id number] Screw Bone 6.5x30mm Lp St Biomet #[id number] - [id number] Right: Biomet 11/26/2028 [id number] / Implanted: Qty: 1 on 02/09/2019 by Tremaine Godinez MD at [facility] Knee 5 [id number] / [id number] documented as of this encounter Procedures Procedure Name Priority Date/Time Associated Diagnosis Comme nts CONSENT/REFUSAL FOR Routine 05/18/2020 9:21 AM CDT DIAGNOSIS AND TREATMENT documented in this encounter Results Not on filedocumented in this encounter Insurance Payer Benefit Plan / Subscriber ID Effective Dates Phone Addre ss Type Group [facility] [id number] 2018-Present Medicaid COMM PLAN - MANAGED MEDICAID documented as of this encounter Advance Directives Name Relationship Healthcare Agent Communication Relationship Araceli Aguila Mother Health Care Agent
--- OUTSIDE RECORDS SUMMARY | 2020-06-01 06:03 | XMS REPORT | Summary of Care ---
:1975 Author Organization [facility] - Health Address [address] [place] [id number] Care Team Providers Name Role Phone Scott Anderson Primary Care Provider Reason for Visit Reason Comments Shortness of Breath Other "thyroid problem" Auth/Cert Status Reason Specialty Diagnoses / Referred By Referred To Procedures Contact Contact Emergency Medicine [facility] ergency Dept [address] [place] [address] Fax: Encounter Details Date Type Department Care Team Description 05/18/2020 Emergency [facility]-Emergency Lucius Adan, Suspected Covid-[address] [place] [address]. Virus Infection [address] [facility] [address] (Primary Dx) [place], [place] [id number] [place] [id number] Allergies No Known Allergiesdocumented as of this [...] Added automatically from request for rajinder carrasco [id number] Morbid obesity with body mass index of 40.0-49.9 01/05 Other depression 12/15/2018 History of tubal ligation 12/15/2018 TOLU (stress urinary incontinence, female) 11/18/2018 Overview: Added automatically from request for rajinder carrasco [id number] Internal derangement of right knee 10/17/2018 Overview: Added automatically from request for rajinder carrasco [id number] S/P total hip arthroplasty 07/21/2018 Well woman [...] been in contact with No / Unsure 05/18/2020 9:35 AM CDT someone who was confirmed or suspected to have Coronavirus / COVID-19? documented as of this encounter Last Filed Vital Signs Vital Sign Reading Time Taken Comments Blood Pressure 135/89 05/18/2020 9:31 AM CDT Pulse 97 05/18/2020 9:31 AM CDT Temperature 36.5 C (97.7 F) 05/18/2020 9:31 AM CDT Respiratory Rate 18 05/18/2020 9:31 AM CDT Oxygen Saturation 97% 05/18/2020 9:31 AM CDT Inhaled Oxygen Concentration - - Weight 112.5 kg (248 lb) 05/18/2020 9:31 AM CDT Height - - Body Mass Index 37.71 04/26/2020 11:24 AM CDT documented in this encounter ED Notes Yamilex Willson RN - 05/18/2020 9:33 AM CDTPatient ambulated in place x1 minute; O2 sats maintained 97% and higher. Yamilex Olmedo RN - 05/18/2020 9:27 AM CDT Patient arrived via private car; ambulated to triage without difficulty. Patient states that she was seen at [facility] yesterday for the SOB and they found her "thyroid levels were off, they wanted to transfer me but I left". Patient states [facility] thyroid medication. Patient states she was tested yesterday for COVID however does not know the results yet. Patient states her "breathing is better since they gave me that shot", when asked about being seen at [facility]. Lucius Dutton DO - 05/18/2020 9:21 AM CDT EMERGENCY DEPARTMENT ENCOUNTER [facility] Patient Name: Glo Perez Date of : 1975 45 year old Exam Room:TX2/VT2 Primary Care Physician: Dianelys Anderson Pre- Hospital Patient Escorted by: Self [9] Mode of Arrival: Personal means [1] EMS Treatment Prior to ED Arrival: Chief Complaint Chief Complaint Patient presents with Shortness of Breath Other "thyroid problem" HPI Glo Perez is a 45 year old female presenting with concerns of COVID- 19 and thyrotoxicosis. She was seen and evaluated at [facility] yesterday and left AMA. She reportedly did not want to be transferred for endocrinology evaluation. She was given methemazole prescription on her paperwork. She presented this morning anxious and saying that she maintained a cough and shortness of breathas she did last night. Past Medical History / Immunizations Past Medical History: Diagnosis Date Arthritis Chronic neck pain Depression ongoing, currently taking medication. IV drug abuse Pap smear abnormality of cervix per pt about 20 yrs ago with [facility] Screening for STD (sexually transmitted disease) 12/04/2017 Substance abuse meth use x 10 yrs TOLU (stress urinary incontinence, female) 11/18/2018 Thyroid disease currently taking medication Tobacco use disorder 12/04/2017 Tetanus received in last 5 years: Unknown Childhood immunizations: Up-to-date Past Surgical History Past Surgical History: Procedure Laterality Date APPENDECTOMY CONIZATION CERVIX,LOOP ELECTRD KNEE ARTHROSCOPY Right 10/20/2018 Surgeon: Tremaine Tse MD; Location: [facility] OR Location TOTAL HIP ARTHROPLASTY Right 07/21/2018 Surgeon: Tremaine Tse MD; Location: [facility] OR Location TOTAL KNEE ARTHROPLASTY Right 02/09/2019 Surgeon: Tremaine Tse MD; Location: [facility] OR [facility] TUBAL LIGATION unsure of date Allergies [...] Review of Systems Review of Systems Constitutional: Positive for fatigue. Negative for chills and fever. HENT: Positive for sore throat. Negative for congestion and postnasal drip. Eyes: Negative for pain. Respiratory: Positive for cough and shortness of breath. Negative for chest tightness and stridor. Breasts: Negative for pain. Cardiovascular: Negative for chest pain. Gastrointestinal: Negative for diarrhea, nausea and vomiting. Genitourinary: Negative for dysuria. Musculoskeletal: Negative for myalgias. Skin: Negative. Neurological: Positive for headaches. Negative for dizziness and light-headedness. Psychiatric/Behavioral: The patient is nervous/anxious. Physical Exam BP 135/89 | Pulse 97 | Temp 36.5 C (97.7 F) (Oral) | Resp 18 | Wt 112.5 kg (248 lb) | SpO2 97% | BMI 37.71 kg/m Physical Exam Constitutional: General: She is not in acute distress. Appearance: She is well-developed. HENT: Head: Normocephalic and atraumatic. Eyes: Pupils: Pupils are equal, round, and reactive to light. Neck: Musculoskeletal: Normal range of motion. Cardiovascular: Rate and Rhythm: Normal rate. Pulmonary: Effort: Pulmonary effort is normal. Abdominal: General: There is no distension. Musculoskeletal: Normal range of motion. Skin: General: Skin is warm and dry. Neurological: Mental Status: She is alert and oriented to person, place, and time. Psychiatric: Mood and Affect: Mood is anxious. Speech: Speech is rapid and pressured. Labs No results found for this or any previous visit (from the past 24 hour(s)). Imaging No results found for this visit on 05/18/20. Orders and Treatments Orders Placed This Encounter Procedures CBC WITH DIFF COMP. METABOLIC PANEL (91948) TROPONIN I THYROID STIMULATING HORMONE FREE T3 FREE T4 URINALYSIS [facility] / [facility] - DRUG SCREEN TRIAGE COVID-19 (ID NOW RAPID TESTING) No orders of the defined types were placed in this encounter. Procedures See ED Procedure Note Notes & MDM Patient was evaluated for an emergency medical condition related to Shortness of Breath and Other ("thyroid problem") . Differential diagnoses considered by presenting complaints but not limited to: COVID-19, Thyrotoxicosis (from previous hospital evaluation), Infection NOS, Metabolic derangements,Anxiety, and others. Assessment: Glo Perez is a 45 year old female presented for evaluation for shortness of breath and symptoms related to COVID and thyrotoxicosis. She was not in extremis. Ordered labs and then eloped from ED after not wanting to take instruction from Rn about wearing a mask. Unable to speak with patientprior to leaving. Diagnosis ICD-10-CM ICD-9-CM 1. Suspected Covid-19 Virus Infection R68.89 Disposition & Follow Up ED Disposition ED Disposition Condition Comment Elope - Before Dispo Stable Patient's Medications START taking these medications No medications on file CONTINUE taking these medications which have NOT CHANGED ALBUTEROL (VENTOLIN HFA) 90 MCG/ACTUATION INHALER Inhale 2 Puffs every 6 (six) hours as needed for Shortness of Breath or Chest tightness for up to 30 days. START taking Modified Medications as Prescribed No medications on file STOP taking these medications No medications on file Lucius Adan DO 05/18/2020 10:27 AM ACTIVE COVID-19 PANDEMIC. documented in this encounter Miscellaneous Notes ED Nurse Note - Ronnie Song RN - 05/18/2020 10:25 AM CDTRN went into room to start patients IV and collect labs and patient stated "I'm not having that swabstuck in my nose again, I've already had it 3 times". I advised patient that in order to be admitted to the hospital that every admission had to have a Covid test done. She stated "I'm not doing it soI will just leave". Patient requested to leave her mask on and patient stated "I can't breath with it on". I advised her that her O2 sats were 97%. Patient refused to allow RN to start and IV or draw labs and she removed all of her monitoring equipment and left the ER. Dr. Adan notified. documented in this encounter Plan of Treatment Name Type Priority Associated Diagnoses Order S chedule CBC WITH DIFF LAB Routine Suspected Covid-19 ONCE for 1 Virus Infection Occurrences starting 05/18/2020 unti l 05/18/2020 COMP. METABOLIC PANEL LAB Routine Suspected Covid-19 ONCE for 1 (20636) Virus Infection Occurrences starting 05/18/2020 unti l 05/18/2020 TROPONIN I LAB STAT Suspected Covid-19 STAT for 1 Virus Infection Occurrences starting 05/18/2020 unti l 05/18/2020 EKG-12 LEAD ROUTINE HEART STATION Routine ONCE fo r 1 Occurrences sta rting 05/18/2020 unti l 05/18/2020 THYROID STIMULATING LAB Routine Suspected Covid-19 ON CE for 1 HORMONE Virus Infection Occurrences starting 05/18/2020 unti l 05/18/2020 FREE T3 LAB Routine Suspected Covid-19 ONCE for 1 Virus Infection Occurrences starting 05/18/2020 unti l 05/18/2020 FREE T4 LAB Routine Suspected Covid-19 ONCE for 1 Virus Infection Occurrences starting 05/18/2020 unti l 05/18/2020 URINALYSIS LAB Routine Suspected Covid-19 ONCE for 1 Virus Infection Occurrences starting 05/18/2020 unti l 05/18/2020 ADC / [facility] - DRUG LAB Routine Suspected Covid-19 ONCE for 1 SCREEN TRIAGE Virus Infection Occurrences starting 05/18/2020 unti l 05/18/2020 COVID-19 (ID NOW LAB Routine Suspected Covid-19 ONCE for 1 RAPID TESTING) Virus Infection Occurrence s starting 05/18/2020 unti l 05/18/2020 Health Maintenance Due Date Last Done Comments [...] of this encounter Implants Implanted Type Area Irrigator Gravity Flow Device Shelf Model / Identifier Expiration Serial / Lot Date Shell Acetabular G7 Cementless Limited 3 Hole Sizr F 56mm Tammy Ref#[id number] Acetabular Right: Biomet 06/08/2028 [id number] / Implanted: Qty: 1 on 07/21/2018 by Tremaine Godinez MD at [facility] Cup Hip 6 [id number] / [id number] Liner G7 Acetabular Neutral Size F 40mm Tammy Ref# [id number] Ac etabular Right: Biomet 06/08/2023 [id number] / Implanted: Qty: 1 on 07/21/2018 by Tremaine Godinez MD at [facility] Liner Hip 6 [id number] / [id number] Bone Cement Injector 1x40 High Viscosity Tammy Ref#[id number] - [id number] CEMENT Right: Biomet 10/13/2022 [id number] / Implanted: Qty: 1 on 02/09/2019 by Tremaine Godinez MD at [facility] Knee 8 [id number] / [id number] Ceraminc Head 40 Mm Biomet #650-1058 - [id number] Femoral Head Right: Biomet 05/01/2027 650-1058 / Implanted: Qty: 1 on 07/21/2018 by Tremaine Godinez MD at [facility] Hip 2 [id number] / [id number] Femoral Stem Cementless Complete Reduced Size 9 Tammy Ref#5 [id number] Femur Right: Biomet 05/26/2028 [id number] / Implanted: Qty: 1 on 07/21/2018 by Tremaine Godinez MD at [facility] Hip 6 [id number] / [id number] Adapter Taper [place] Biomet #650-1066 - [id number] Right : Biomet 03/04/2028 650-1066 / Implanted: Qty: 1 on 07/21/2018 by Tremaine Godinez MD at [facility] Hip 2 [id number] / [id number] Femoral Cementless Right Porous 60mm Biomet #[id number] [[id number]] KNEE Right: Biomet 08/29/2028 [id number] / Implanted: Qty: 1 on 02/09/2019 by Tremaine Godinez MD at [facility] Knee 8 15069 / [id number] Component Primary Tibial Modular Tray Ce mentless 71mm Vanguard [employer] Ref#[id number] KNEE Right: Biomet 05/28/2022 [id number] / Implanted: Qty: 1 on 02/09/2019 by Tremaine Godinez MD at [facility] Knee 1 [id number] / [id number] Bearing Tibial Articular 71mm/75mm Vanguard [employer] Ref#[id number] KNEE Right: Biomet 12/23/2023 [id number] / Implanted: Qty: 1 on 02/09/2019 by Tremaine Godinez MD at [facility] Knee 8 [id number] / [id number] Screw, Tammy Bone 6.5x20 Self-Tap #71-9227-215-20 - [id number] S CREW Right: Tammy 01/11/202758-4864-482-20 / Implanted: Qty: 1 on 07/21/2018 by Tremaine Godinez MD at [facility] Hip 6 [id number] / [id number] Screw, Tammy Bone 6.5x20 Self-Tap #44-2385-296-20 - [id number] S CREW Right: Tammy 03/13/202814-7425-901-20 / Implanted: Qty: 1 on 07/21/2018 by Tremaine Godinez MD at [facility] Hip 6 [id number] / [id number] Screw Bone 6.5x30mm Lp St Biomet #813758 - [id number] Right: Biomet 12/16/2028 275326 / Implanted: Qty: 2 on 02/09/2019 by Tremaine Godinez MD at [facility] Knee 8 / [id number] Screw Bone 6.5x30mm Lp St Biomet #049847 - [id number] Right: Biomet 07/24/2028 591769 / Implanted: Qty: 1 on 02/09/2019 by Tremaine Godinez MD at [facility] Knee 5 [id number] / [id number] Patella 8 X 31mm Biomet#312407 - [id number] Right: Biomet 12/18/2023 [id number] / Implanted: Qty: 1 on 02/09/2019 by Tremaine Godinez MD at [facility] Knee 8 [id number] / [id number] Stem Finned Primary 40mm Biomet #786398 - [id number] Right: Biomet 12/18/2028 [id number] / Implanted: Qty: 1 on 02/09/2019 by Tremaine Godinez MD at [facility] Knee 5 [id number] / [id number] Screw Bone 6.5x30mm Lp St Biomet #111083 - [id number] Right: Biomet 11/26/2028 [id number] / Implanted: Qty: 1 on 02/09/2019 by Tremaine Godinez MD at [facility] Knee 5 [id number] / [id number] documented as of this encounter Procedures Procedure Name Priority Date/Time Associated Diagnosis Comme nts NOTICE OF PRIVACY Routine 05/18/2020 9:23 AM CDT PRACTICES documented in this encounter Results Not on filedocumented in this encounter Visit Diagnoses Diagnosis Suspected Covid-19 Virus Infection - [facility] documented in this encounter Additional Health Concerns Infection Onset Date Last Indicated Resolved Time COVID-19 Rule Out 05/18/2020 05/18/2020 documented as of this encounter Insurance Payer Benefit Plan / Subscriber ID Effective Dates Phone Addre ss Type Group [facility] [id number] 2018-Present Medicaid COMM PLAN - MANAGED MEDICAID documented as of this encounter Advance Directives Name Relationship Healthcare Agent Communication Relationship Araceli Aguila Mother Health Care Agent
--- OUTSIDE RECORDS SUMMARY | 2020-06-01 06:03 | XMS REPORT | Summary of Care ---
:1975 Author Organization [facility] Address [address] [place] [address] Care Team Providers Name Role Phone Scott Anderson Primary Care Provider Reason for Referral (EDSON) Status Reason Specialty Diagnoses / Procedures Referred By Denice yates To Contact Contact New Request Diagnoses Hyperthyroidism Douglas Chacon Wentong, MD Procedures CONSULT/REFERRAL ENDOCRINOLOGY Other (see comments); Preferred Location: [facility] MD [place] [facility] [address] [address] Phone: Fax: Reason for Visit Reason Comments Cough Encounter Details Date Type Department Care Team Description 05/26/2020 Telemedicine Visit [facility] Douglas Chacon [place] with cough (Primary Dx); Pediatric and MD [place] Bronchitis with bronchospasm; Adult Primary [address] [place] [address] Hyperthyroid [facility] [address] [place] [address] Drive, [address] [address] [place], [place] [phone] [address] Allergies No Known Allergiesdocumented as of this encounter (statuses as of 05/26/2020) Medications Medication Sig Dispensed Refills Start Date End Date Status albuterol (VENTOLIN Inhale 2 Puffs 8.5 g 0 04/26/202005/14 Active HFA) 90 mcg/actuation every 6 (six) inhalerIndications: hours as needed URI, acute, SOB for Shortness of (shortness of breath) Breath or Chest tightness for up to 30 days. azithromycin 500 mg Take 1 tablet by 3 tablet 0 05/26/2020 Active tabletIndications: mouth daily. Viral URI with cough, Bronchitis with bronchospasm albuterol 2.5 mg /3 Inhale 3 mL every 100 Vial 3 05/26/2020 Active mL (0.083 %) 4 (four) hours as nebulizer needed for solutionIndications: Wheezing or Viral URI with cough, Shortness of Bronchitis with Breath. bronchospasm documented as of this encounter (statuses as of 05/26/2020) Active Problems Problem Noted Date Shortness of breath 05/20/2020 Total knee replacement status 02/09/2019 History of arthritis 01/23/2019 Overview: Added automatically from request for rajinder carrasco [id number] Morbid obesity with body mass index of 40.0-49.9 01/05 Other depression 12/15/2018 History of tubal ligation 12/15/2018 TOLU (stress urinary incontinence, female) 11/18/2018 Overview: Added automatically from request for rajinder carrasco [id number] Internal derangement of right knee 10/17/2018 Overview: Added automatically from request for rajinder carrasco [id number] S/P total hip arthroplasty 07/21/2018 Well woman exam 12/04/2017 Screening for STD (sexually transmitted disease) 12/04 IV drug user 12/04/2017 Tobacco use disorder 12/04/2017 Obesity, unspecified classification, unspecified obesi ty type, unspecified 12/04/2017 whether serious comorbidity present BMI 34.0-34.9,adult 12/04/2017 Thyroid disease 12/04/2017 Enlarged thyroid gland 12/04/2017 documented as of this encounter (statuses as of 05/26/2020) Immunizations Name Administration Dates Next Due TDAP [...] Signs Not on filedocumented in this encounter Progress Notes Douglas Chacon MD - 05/26/2020 2:15 PM CDT TELEHEALTH NOTE Verbal consent obtained from Patient: Glo Perez for telehealth services provided below. Communication with patient was conducted via Telephone due to patient unable to obtain video call option. Location of Patient: Home Location of Provider: Office Date of Service: 05/26/2020 Chief Complaint: cough; dyspnea and wheezing HPI: Cough Cough characteristics: Productive Sputum characteristics: Nondescript Severity: Moderate Progression: Waxing and waning Associated symptoms: wheezing Covid negative Thyroid: recent tests show hyperthyroid; needs referral endo Past Medical History: Diagnosis Date Arthritis Chronic neck pain Depression ongoing, currently taking medication. IV drug abuse Pap smear abnormality of cervix per pt about 20 yrs ago with [facility] Screening for STD (sexually transmitted disease) 12/04/2017 Substance abuse meth use x 10 yrs TOLU (stress urinary incontinence, female) 11/18/2018 Thyroid disease currently taking medication Tobacco use disorder 12/04/2017 No Known Allergies Family History Problem Relation Age of Onset [...] Mental retardation NoFHx Osteoporosis NoFHx Psychiatry NoFHx MEDICATIONS: Current Outpatient Medications Medication Sig Dispense Refill albuterol 2.5 mg /3 mL (0.083 %) nebulizer solution Inhale 3 mL every 4 (four) hours as needed for Wheezing or Shortness of Breath. 100 Vial 3 azithromycin 500 mg tablet Take 1 tablet by mouth daily. 3 tablet 0 albuterol (VENTOLIN HFA) 90 mcg/actuation inhaler Inhale 2 Puffs every 6 (six) hours as needed for Shortness of Breath or Chest tightness for up to 30 days. 8.5 g 0 No current facility-administered medications for this visit. ROS Review of Systems Respiratory: Positive for cough and wheezing. TELEHEALTH EXAM Patient is alert and communicative on the phone with no distress noted. ASSESSMENT/ PLAN 1. Viral URI with cough azithromycin 500 mg tablet albuterol 2.5 mg /3 mL (0.083 %) nebulizer solution 2. Bronchitis with bronchospasm azithromycin 500 mg tablet albuterol 2.5 mg /3 mL (0.083 %) nebulizer solution 3. Hyperthyroidism CONSULT/REFERRAL ENDOCRINOLOGY Other (see comments); Preferred Location: [facility] After visit summary (AVS ) documentation will be available through [employer] for this encounter. A total of 15 minutes was spent on the Telephone due to patient unable to obtain video call option with the patient. Douglas Chacon MD documented in this encounter Plan of Treatment Date Type Specialty Care Team Description 05/30/2020 Office Visit Endocrinology Diabetes & Renetta Scott MD [facility] [address] [address] [phone] 06/01/2020 Appointment Radiology Susan Gonzalez M D [address] [place] [address] [phone] 06/08/2020 Office Visit Otolaryngology Susan Gonzalez M D [address] [place] [address] [phone] Health Maintenance Due Date Last Done Comments [...] of this encounter Implants Implanted Type Area Letter Carrier Device Shelf Model / Identifier Expiration Serial / Lot Date Shell Acetabular G7 Cementless Limited 3 Hole Sizr F 56mm Tamym Ref#[id number] Acetabular Right: Biomet 06/08/2028 [id number] / Implanted: Qty: 1 on 07/21/2018 by Tremaine Godinez MD at [facility] Cup Hip 6 [id number] / [id number] Liner G7 Acetabular Neutral Size F 40mm Tammy Ref# [id number] Ac etabular Right: Biomet 06/08/2023 [id number] / Implanted: Qty: 1 on 07/21/2018 by Tremaine Godinez MD at [facility] Liner Hip 6 [id number] / [id number] Bone Cement Injector 1x40 High Viscosity Tammy Ref#[id number] - [id number] Right: Biomet 10/13/2022 [id number] / Implanted: Qty: 1 on 02/09/2019 by Tremaine Godinez MD at [facility] Knee 8 [id number] / [id number] Ceraminc Head 40 Mm Biomet #650-1058 - [id number] Femoral Head Right: Biomet 05/01/2027 650-1058 / Implanted: Qty: 1 on 07/21/2018 by Tremaine Godinez MD at [facility] Hip 2 [id number] / [id number] Femoral Stem Cementless Complete Reduced Size 9 Tammy Ref#5 [id number] Femur Right: Biomet 05/26/2028 [id number] / Implanted: Qty: 1 on 07/21/2018 by Tremaine Godinez MD at [facility] Hip 6 [id number] / [id number] Adapter Taper [place] Biomet #650-1066 - [id number] Right : Biomet 03/04/2028 [id number] / Implanted: Qty: 1 on 07/21/2018 by Tremaine Godinez MD at [facility] Hip 2 [id number] / [id number] Femoral Cementless Right Porous 60mm Biomet #[id number] [[id number]] KNEE Right: Biomet 08/29/2028 [id number] / Implanted: Qty: 1 on 02/09/2019 by Tremaine Godinez MD at [facility] Knee 8 [id number] / [id number] Component Primary Tibial Modular Tray Ce mentless 71mm Vanguard Biomet Ref#[id number] KNEE Right: Biomet 05/28/2022 [id number] / Implanted: Qty: 1 on 02/09/2019 by Tremaine Godinez MD at [facility] Knee 1 [id number] / [id number] Bearing Tibial Articular 71mm/75mm Vanguard [employer]omet Ref#[id number] KNEE Right: Biomet 12/23/2023 [id number] / Implanted: Qty: 1 on 02/09/2019 by Tremaine Godinez MD at [facility] Knee 8 [id number] / [id number] Screw, Tammy Bone 6.5x20 Self-Tap #27-1397-294-20 - [id number] S CREW Right: Tammy 01/11/202709-96[address]-422-20 / Implanted: Qty: 1 on 07/21/2018 by Tremaine Godinez MD at [facility] Hip 6 [id number] / [id number] Screw, Tammy Bone 6.5x20 Self-Tap #49-2098-212-20 - [id number] S CREW Right: Tammy 03/13/202859-3049-129-20 / Implanted: Qty: 1 on 07/21/2018 by Tremaine Godinez MD at [facility] Hip 6 [id number] / [id number] Screw Bone 6.5x30mm Lp St Biomet #675949 - [id number] Right: Biomet 12/16/2028 [id number] / Implanted: Qty: 2 on 02/09/2019 by Tremaine Godinez MD at [facility] Knee 8 / [id number] Screw Bone 6.5x30mm Lp St Biomet #972299 - [id number] Right: Biomet 07/24/2028 [id number] / Implanted: Qty: 1 on 02/09/2019 by Tremaine Godinez MD at [facility] Knee 5 [id number] / [id number] Patella 8 X 31mm Biomet#212631 - [id number] Right: Biomet 12/18/2023 [id number] / Implanted: Qty: 1 on 02/09/2019 by Tremaine Godinez MD at [facility] Knee 8 [id number] / [id number] Stem Finned Primary 40mm Biomet #199157 - [id number] Right: Biomet 12/18/2028 [id number] / Implanted: Qty: 1 on 02/09/2019 by Tremaine Godinez MD at [facility] Knee 5 [id number] / [id number] Screw Bone 6.5x30mm Lp St Biomet #269138 - [id number] Right: Biomet 11/26/2028 [id number] / Implanted: Qty: 1 on 02/09/2019 by Tremaine Godinez MD at [facility] Knee 5 [id number] / [id number] documented as of this encounter Results Not on filedocumented in this encounter Visit Diagnoses Diagnosis Viral URI with cough - Primary Acute upper respiratory infections of un specified site Bronchitis with bronchospasm Acute bronchitis Hyperthyroidism Thyrotoxicosis without mention of goiter or other cause, without mention of thyrotoxic crisis or storm documented in this encounter Insurance Payer Benefit Plan / Subscriber ID Effective Dates Phone Addre ss Type Group [facility] [id number] 2018-Present Medicaid COMM PLAN - MANAGED MEDICAID documented as of this encounter Advance Directives Name Relationship Healthcare Agent Communication Relationship Araceli Aguila Mother Health Care Agent
--- OUTSIDE RECORDS SUMMARY | 2020-06-01 06:04 | XMS REPORT | Summary of Care ---
:1975 Author Organization [facility] Address [address] [place] [address] Care Team Providers Name Role Phone Scott Anderson Primary Care Provider Reason for Visit Reason Comments LAB WORK Encounter Details Date Type Department Care Team Description 05/30/2020 Education Technician Visit [facility] Clinical Gayle Scott MD [address] [facility], [facility] [address] [place] [address] Hyperthyroidism; Laboratory, Clear Draw, Clc-Bls Lab Tachycardia; [facility] Tobacco use disorder [address] [facility] [address]th [place] [address] Allergies No Known Allergiesdocumented as of this encounter (statuses as of 05/30/2020) Medications Medication Sig Dispensed Refills Start Date End Date Status azithromycin 500 mg Take 1 tablet by 3 tablet 0 05/26/2020 Active tabletIndications: mouth daily. Viral URI with cough, Bronchitis with bronchospasm albuterol 2.5 mg /3 mL Inhale 3 mL every 100 Vial 3 0 Active (0.083 %) nebulizer 4 (four) hours as solutionIndications: needed for Viral URI with cough, Wheezing or Bronchitis with Shortness of bronchospasm Breath. ALBUTEROL INHALE Inhale. 0 Act nazia IBUPROFEN ORAL Take by mouth. 0 Active acetaminophen (TYLENOL Take by mouth. 0 Active ORAL) documented as of this encounter (statuses as of 05/30/2020) Active Problems Problem Noted Date Shortness of breath 05/20/2020 Total knee replacement status 02/09/2019 History of arthritis 01/23/2019 Overview: Added automatically from request for rajinder carrasco [id number] Morbid obesity with body mass index of 40.0-49.9 01/05 Other depression 12/15/2018 History of tubal ligation 12/15/2018 TOLU (stress urinary incontinence, female) 11/18/2018 Overview: Added automatically from request for rajinder carrasco [id number] Internal derangement of right knee 10/17/2018 Overview: Added automatically from request for rajinder carrasco [id number] S/P total hip arthroplasty 07/21/2018 Well woman exam 12/04/2017 Screening for STD (sexually transmitted disease) 12/04 IV drug user 12/04/2017 Tobacco use disorder 12/04/2017 Obesity, unspecified classification, unspecified obesi ty type, unspecified 12/04/2017 whether serious comorbidity present BMI 34.0-34.9,adult 12/04/2017 Thyroid disease 12/04/2017 Enlarged thyroid gland 12/04/2017 documented as of this encounter (statuses as of 05/30/2020) Immunizations Name Administration Dates Next Due TDAP [...] been in contact with No / Unsure 05/30/2020 8:14 AM CDT someone who was confirmed or suspected to have Coronavirus / COVID-19? documented as of this encounter Last Filed Vital Signs Not on filedocumented in this encounter Nursing Notes Tiago Kevin - 05/30/2020 9:30 AM CDT Venipuncture collection performed by clean technique on the right hand. Total of 1 attempts were made. Slight pressure and a bandage/dressing were applied to the site(s). The patient experienced no complications. The following specimens were processed according to instructions and sent to [facility] laboratories per lab order on 05/30/2020: LT BLUE SST 2 RED LAV 2 PPT DK GREEN (LiHep) DK GREEN (SodH) WEIR DK BLUE (K2) DK BLUE (S) ACD Blood Culture NIPT/NTD documented in this encounter Plan of Treatment Date Type Specialty Care Team Description 06/01/2020 Appointment Radiology Susan Gonzalez M D [address] [place] [address] [phone] 06/08/2020 Office Visit Otolaryngology Susan Gonzalez M D [address] [place] [address] [phone] 07/05/2020 Office Visit Endocrinology Diabetes & Saad Serrato MD Metabolism [address] [place] [address] [phone] 07/11/2020 Office Visit Endocrinology Diabetes & Renetta Scott MD Metabolism [address] [address] [phone] Name Type Priority Associated Diagnoses Date/Ti me TRIIODOTHYRONINE LAB Routine Hyperthyroidism 05/30/20 20 9:27 AM CDT METANEPHRINES, PLASMA LAB Routine Tachycardia 2019 9:27 AM CDT FREE T4 LAB Routine Hyperthyroidism 05/30/2020 9:27 AM CDT COMP. METABOLIC PANEL (39356) LAB Routine Tachycardia 05/30/2020 9:27 AM CDT CBC WITH DIFF LAB Routine Tobacco use disorder 2019 9:27 AM CDT Health Maintenance Due Date Last Done Comments [...] of this encounter Implants Implanted Type Area Minister Of Religion Device Shelf Model / Identifier Expiration Serial / Lot Date Shell Acetabular G7 Cementless Limited 3 Hole Sizr F 56mm Tammy Ref#[id number] Acetabular Right: Biomet 06/08/2028 [id number] / Implanted: Qty: 1 on 07/21/2018 by Tremaine Godinez MD at [facility] Cup Hip 6 [id number] / [id number] Liner G7 Acetabular Neutral Size F 40mm Tammy Ref# [id number] Ac etabular Right: Biomet 06/08/2023 [id number] / Implanted: Qty: 1 on 07/21/2018 by Tremaine Godinez MD at [facility] Liner Hip 6 [id number] / [id number] Bone Cement Injector 1x40 High Viscosity Tammy Ref#[id number] - [id number] Right: Biomet 10/13/2022 [id number] / Implanted: Qty: 1 on 02/09/2019 by Tremaine Godinez MD at [facility] Knee 8 [id number] / [id number] Ceraminc Head 40 Mm Biomet #650-1058 - [id number] Femoral Head Right: Biomet 05/01/2027 650-1058 / Implanted: Qty: 1 on 07/21/2018 by Tremaine Godinez MD at [facility] Hip 2 [id number] / [id number] Femoral Stem Cementless Complete Reduced Size 9 Tammy Ref#5 [id number] Femur Right: Biomet 05/26/2028 [id number] / Implanted: Qty: 1 on 07/21/2018 by Tremaine Godinez MD at [facility] Hip 6 [id number] / [id number] Adapter Taper [place] Biomet #650-1066 - [id number] Right : Biomet 03/04/2028 650-1066 / Implanted: Qty: 1 on 07/21/2018 by Tremaine Godinez MD at [facility] Hip 2 [id number] / [id number] Femoral Cementless Right Porous 60mm Biomet #812306 [[id number]] KNEE Right: Biomet 08/29/2028 [id number] / Implanted: Qty: 1 on 02/09/2019 by Tremaine Godinez MD at [facility] Knee 8 [id number] / [id number] Component Primary Tibial Modular Tray Ce mentless 71mm Vanguard [employer]omet Ref#[id number] KNEE Right: Biomet 05/28/2022 [id number] / Implanted: Qty: 1 on 02/09/2019 by Tremaine Godinez MD at [facility] Knee 1 [id number] / [id number] Bearing Tibial Articular 71mm/75mm Vanguard [employer]omet Ref#[id number] KNEE Right: Biomet 12/23/2023 [id number] / Implanted: Qty: 1 on 02/09/2019 by Tremaine Godinez MD at [facility] Knee 8 [id number] / [id number] Screw, Tammy Bone 6.5x20 Self-Tap #39-0458-630-20 - [id number] S CREW Right: Tammy 01/11/202723-5463-237-20 / Implanted: Qty: 1 on 07/21/2018 by Tremaine Godinez MD at [facility] Hip 6 [id number] / [id number] Screw, Tammy Bone 6.5x20 Self-Tap #69-5622-290-20 - [id number] S CREW Right: Tammy 03/13/202879-4053-122-20 / Implanted: Qty: 1 on 07/21/2018 by Tremaine Godinez MD at [facility] Hip 6 [id number] / [id number] Screw Bone 6.5x30mm Lp St Biomet #660224 - [id number] Right: Biomet 12/16/2028 [id number] / Implanted: Qty: 2 on 02/09/2019 by Tremaine Godinez MD at [facility] Knee 8 / [id number] Screw Bone 6.5x30mm Lp St Biomet #397293 - [id number] Right: Biomet 07/24/2028 383695 / Implanted: Qty: 1 on 02/09/2019 by Tremaine Godinez MD at [facility] Knee 5 [id number] / [id number] Patella 8 X 31mm Biomet#565745 - [id number] Right: Biomet 12/18/2023 820499 / Implanted: Qty: 1 on 02/09/2019 by Tremaine Godinez MD at [facility] Knee 8 47800 / [id number] Stem Finned Primary 40mm Biomet #381075 - [id number] Right: Biomet 12/18/2028 261043 / Implanted: Qty: 1 on 02/09/2019 by Tremaine Godinez MD at [facility] Knee 5 [id number] / [id number] Screw Bone 6.5x30mm Lp St Biomet #029906 - [id number] Right: Biomet 11/26/2028 133287 / Implanted: Qty: 1 on 02/09/2019 by Tremaine Godinez MD at [facility] Knee 5 [id number] / [id number] documented as of this encounter Results Not on filedocumented in this encounter Visit Diagnoses Diagnosis Hyperthyroidism Thyrotoxicosis without mention of goiter or other cause, without mention of thyrotoxic crisis or storm Tachycardia Tachycardia, unspecified Tobacco use disorder documented in this encounter Insurance Payer Benefit Plan / Subscriber ID Effective Dates Phone Addre ss Type Group [facility] [id number] 2018-Present Medicaid COMM PLAN - MANAGED MEDICAID documented as of this encounter Advance Directives Name Relationship Healthcare Agent Communication Relationship Araceli Aguila Mother Health Care Agent
--- OUTSIDE RECORDS SUMMARY | 2020-06-01 06:04 | XMS REPORT | Summary of Care ---
:1975 Author Organization [facility] Address [address] [place] [id number] Care Team Providers Name Role Phone Scott Anderson Primary Care Provider Reason for Referral (EDSON) Status Reason Specialty Diagnoses / Referred By Referred To Procedures Contact Contact New Request Pulmonary Disease Diagnoses Tobacco use disorder Renetta Scott Procedures CONSULT/REFERRAL PULMONARY MD Scott [address] [place] [address] Radiology Services (EDSON) Status Reason Specialty Diagnoses / Referred By Referred To Procedures Contact Contact New Request Diagnostic Diagnoses Hyperthyroidism Thyroid nodule Tachycardia Renetta Scott Radiology Procedures NM THYROID UPTAKE AND SCAN MD Scott [address] [place] [address] Reason for Visit Reason Comments New Patient pt confirm all meds and phar meron Thyroid Problem pt seend Dr Serrato, (EDSON) Status Reason Specialty Diagnoses / Procedures Referred By Denice yates To Contact Contact New Request Diagnoses Hyperthyroidism Douglas Chacon Wentong, MD Procedures CONSULT/REFERRAL ENDOCRINOLOGY Other (see comments); Preferred Location: [facility] [place] [address] [place] [address] [place] [phone] Phone: Fax: Encounter Details Date Type Department Care Team Description 05/30/2020 Office Visit [facility] Renetta Scott Hyperthyroid ism (Primary Dx); Endocrinology, Florence Chavez MD Thyroid nodule; [facility] [address], Tachycardia; 250 [facility], [facility] [address] Tobacco use disorder [address] [place] [address] [place], [place] [phone] Allergies No Known Allergiesdocumented as of this encounter (statuses as of 05/30/2020) Medications Medication Sig Dispensed Refills Start End Date Status Date IBUPROFEN ORAL Take by 0 Activ e mouth. acetaminophen Take by 0 Active (TYLENOL ORAL) mouth. escitalopram oxalate Take 1 tablet 30 tablet 2 Active (LEXAPRO) 10 mg by mouth 0 tabletIndications: daily. Hyperthyroidism albuterol 90 Inhale 2 Puffs 8.5 g 1 Ac tive mcg/actuation every 6 (six) 0 inhalerIndications: hours as Tobacco use disorder needed for Wheezing or Shortness of Breath. amLODIPine 5 mg Take 1 tablet 30 tablet 1 Active tabletIndications: by mouth 0 Tachycardia daily. azithromycin 500 mg Take 1 tablet 3 tablet 0 Discontinued tabletIndications: by mouth 0 20 ( Alternate Viral URI with daily. thera py) cough, Bronchitis with bronchospasm albuterol 2.5 mg /3 Inhale 3 mL 100 Vial 3 05/30/20 Discontinued mL (0.083 %) every 4 (four) 0 20 (A lternate nebulizer hours as therapy) solutionIndications: needed for Viral URI with Wheezing or cough, Bronchitis Shortness of with bronchospasm Breath. ALBUTEROL INHALE Inhale. 0 05/30/20 Dis continued 20 (Alternate therapy) documented as of this encounter (statuses as of 05/30/2020) Active Problems Problem Noted Date Thyroid nodule 05/30/2020 Tachycardia 05/30/2020 Shortness of breath 05/20/2020 Total knee replacement status 02/09/2019 History of arthritis 01/23/2019 Overview: Added automatically from request for rajinder luna [id number] Morbid obesity with body mass index of 40.0-49.9 01/05 Other depression 12/15/2018 History of tubal ligation 12/15/2018 TOLU (stress urinary incontinence, female) 11/18/2018 Overview: Added automatically from request for rajinder carrasco [id number] Internal derangement of right knee 10/17/2018 Overview: Added automatically from request for rajinder carrasco [id number] S/P total hip arthroplasty 07/21/2018 Well woman exam 12/04/2017 Screening for STD (sexually transmitted disease) 12/04 IV drug user 12/04/2017 Tobacco use disorder 12/04/2017 Obesity, unspecified classification, unspecified obesi ty type, unspecified 12/04/2017 whether serious comorbidity present BMI 34.0-34.9,adult 12/04/2017 Hyperthyroidism 12/04/2017 documented as of this encounter (statuses [...] Sign Reading Time Taken Comments Blood Pressure 128/70 05/30/2020 8:28 AM CDT Pulse 96 05/30/2020 8:28 AM CDT Temperature 36.6 C (97.9 F) 05/30/2020 8:28 AM CDT Respiratory Rate - - Oxygen Saturation 93% 05/30/2020 8:28 AM CDT Inhaled Oxygen Concentration - - Weight 113.4 kg (250 lb) 05/30/2020 8:28 AM CDT Height 172.7 cm (5' 8") 05/30/2020 8:28 AM CDT Body Mass Index 38.01 05/30/2020 8:28 AM CDT documented in this encounter Progress Notes Renetta Scott MD - 05/30/2020 8:15 AM CDT Cc: Chief Complaint Patient presents with New Patient pt confirm all meds and pharmacy Thyroid Problem pt seend Glo Ortegale Dugie is a 45 year old female. HPI Patient hyperthyroid for years complain of anxiety, sleep troubles, recently lost weight, tremors etc. Her thyroid nodule was biopsied two years ago and she was informed its not cancerous. She has been on and off methimazole from last few years. Smoker, dyspneic can not walk much, has not seen filler and trimmer, mostly use ER for her day to day care. Mum accompanied patient today and mentioned her daughter had breast imaging done which require a procedure. Allergies Glo has No Known Allergies. Medications Outpatient Medications Prior to Visit Medication Sig Dispense Refill acetaminophen (TYLENOL ORAL) Take by mouth. IBUPROFEN ORAL Take by mouth. ALBUTEROL INHALE Inhale. albuterol 2.5 mg /3 mL (0.083 %) nebulizer solution Inhale 3 mL every 4 (four) hours as needed for Wheezing or Shortness of Breath. 100 Vial 3 azithromycin 500 mg tablet Take 1 tablet by mouth daily. 3 tablet 0 No facility-administered medications prior to visit. Histories Past Medical History: Diagnosis Date Arthritis Chronic neck pain Depression ongoing, currently taking medication. IV drug abuse [facility] ([facility] transmitted disease) 12/04/2017 [...] Right 02/09/2019 Surgeon: Tremaine Tse MD; [facility] TUBAL LIGATION unsure of date Social History Socioeconomic History Marital status: Spouse name: Not on file Number of children: Not on file Years of education: Not on file Highest education level: Not on file Occupational History Not on file Social Needs Financial resource strain: Not on file Food insecurity Worry: Not on file Inability: Not on file Transportation needs Medical: Not on file Non-medical: Not on [...] Comment: last sexual intercourse 12/08/2018 Lifestyle Physical activity Days per week: Not on file Minutes per session: Not on file Stress: Not on file Relationships Social connections Talks on phone: Not on file Gets together: Not on file Attends anabaptism service: Not on file Active member of club or organization: Not on file Attends meetings of clubs or organizations: Not on file Relationship status: Not on file Intimate partner violence Fear of current or ex partner: Not on file Emotionally abused: Not on file Physically abused: Not on file Forced sexual activity: Not on file Other Topics Concern Not on file Social History Narrative Catholic preference is Gnosticism. Patient lives with family. Patient has 1 [...] NoFHx Psychiatry NoFHx Review of Systems Constitutional: Positive for weight loss. HENT: Negative. Eyes: Negative. Respiratory: Positive for shortness of breath. Cardiovascular: Positive for palpitations. Gastrointestinal: Negative. Musculoskeletal: Negative. Skin: Negative. Neurological: Positive for tremors. Psychiatric/Behavioral: Positive for sleep disturbance. The patient is nervous/anxious. Endocrine: Endocrine negativePositive for goiter and weight loss. Vital Signs BP 128/70 | Pulse 96 | Temp 36.6 C (97.9 F) | Ht 5' 8" (1.727 m) | Wt 250 lb (113.4 kg) | SpO2 93% | BMI 38.01 kg/m Physical Exam Constitutional: Appearance: She is well-developed. Eyes: General: No scleral icterus. Left eye: No discharge. Conjunctiva/sclera: Conjunctivae normal. Pupils: Pupils are equal, round, and reactive to light. Neck: Musculoskeletal: Normal range of motion and neck supple. Thyroid: No thyromegaly. Vascular: No JVD. Trachea: No tracheal deviation. Cardiovascular: Rate and Rhythm: Regular rhythm. Tachycardia present. Heart sounds: Normal heart sounds. No murmur. No friction rub. No gallop. Pulmonary: Effort: Pulmonary effort is normal. No respiratory distress. Breath sounds: Normal breath sounds. No wheezing or rales. Chest: Chest wall: No tenderness. Abdominal: General: Bowel sounds are normal. There is no distension. Palpations: Abdomen is soft. There is no mass. Tenderness: There is no abdominal tenderness. There is no guarding or rebound. Hernia: No hernia is present. Musculoskeletal: Normal range of motion. General: No tenderness or deformity. Lymphadenopathy: Cervical: No cervical adenopathy. Skin: General: Skin is warm and dry. Capillary Refill: Capillary refill takes less than 2 seconds. Coloration: Skin is not pale. Findings: No erythema or rash. Neurological: Mental Status: She is alert and oriented to person, place, and time. Cranial Nerves: No cranial nerve deficit. Sensory: No sensory deficit. Motor: No abnormal muscle tone. Coordination: Coordination normal. Deep Tendon Reflexes: Reflexes normal. Psychiatric: Behavior: Behavior normal. Thought Content: Thought content normal. Judgment: Judgment normal. Assessment/Plan Glo was seen today for new patient and thyroid problem. Diagnoses and all orders for this visit: Hyperthyroidism - TRIIODOTHYRONINE; Future - FREE T4; Future - NM THYROID UPTAKE AND SCAN; Future - escitalopram oxalate (LEXAPRO) 10 mg tablet; Take 1 tablet by mouth daily. Thyroid nodule - NM THYROID UPTAKE AND SCAN; Future Tachycardia - COMP. METABOLIC PANEL (68298); Future - METANEPHRINES, PLASMA; Future - NM THYROID UPTAKE AND SCAN; Future - amLODIPine 5 mg tablet; Take 1 tablet by mouth daily. Tobacco use disorder - CBC WITH DIFF; Future - albuterol 90 mcg/actuation inhaler; Inhale 2 Puffs every 6 (six) hours as needed for Wheezing or Shortness of Breath. - CONSULT/REFERRAL PULMONARY documented in this encounter Plan of Treatment Date Type Specialty Care Team Description 06/01/2020 Appointment Radiology Susan Gonzalez M D [address] [place] [address] [phone] 06/08/2020 Office Visit Otolaryngology Susan Gonzalez M D [address] [place] [address] [phone] 07/05/2020 Office Visit Endocrinology Diabetes & Saad Serrato MD Metabolism [address] [place] [address] [phone] 07/11/2020 Office Visit Endocrinology Diabetes & Renetta Scott MD Metabolism [address] [address] [phone] Name Type Priority Associated Diagnoses Date/Ti me TRIIODOTHYRONINE LAB Routine Hyperthyroidism 05/30/20 20 9:27 AM CDT FREE T4 LAB Routine Hyperthyroidism 05/30/2020 9:27 AM CDT CBC WITH DIFF LAB Routine Tobacco use disorder 2019 9:27 AM CDT COMP. METABOLIC PANEL (90920) LAB Routine Tachycardia 05/30/2020 9:27 AM CDT METANEPHRINES, PLASMA LAB Routine Tachycardia 2019 9:27 AM CDT Name Type Priority Associated Diagnoses Order S chedule TRIIODOTHYRONINE LAB Routine Hyperthyroidism Expected : 05/30/2020, Expires: 2020 FREE T4 LAB Routine Hyperthyroidism 1 Occurrence s starting 2019 until 1 CBC WITH DIFF LAB Routine Tobacco use disorder Expect ed: 05/30/2020, Expires: 2020 COMP. METABOLIC PANEL LAB Routine Tachycardia Expect ed: (10022) 05/30/2020, Expires: 2020 METANEPHRINES, PLASMA LAB Routine Tachycardia Expect ed: 05/30/2020, Expires: 2020 NM THYROID UPTAKE AND IMAGING EDSON Hyperthyro idism Expected: SCAN Thyroid nodule 06/30/2020, Tachycardia Expires: 2019 Health Maintenance Due Date Last Done Comments [...] of this encounter Implants Implanted Type Area Fresh Meat Grader Device Shelf Model / Identifier Expiration Serial / Lot Date Shell Acetabular G7 Cementless Limited 3 Hole Sizr F 56mm Tammy Ref#[id number] Acetabular Right: Biomet 06/08/2028 [id number] / Implanted: Qty: 1 on 07/21/2018 by Tremaine Godinez MD at [facility] Cup Hip 6 [id number] / [id number] Liner G7 Acetabular Neutral Size F 40mm Tammy Ref# [id number] Ac etabular Right: Biomet 06/08/2023 [id number] / Implanted: Qty: 1 on 07/21/2018 by Tremaine Godinez MD at [facility] Liner Hip 6 [id number] / [id number] Bone Cement Injector 1x40 High Viscosity Tammy Ref#[id number] - [id number] [id number] Right: Biomet 10/13/2022 [id number] / Implanted: Qty: 1 on 02/09/2019 by Tremaine Godinez MD at [facility] Knee 8 [id number] / [id number] Ceraminc Head 40 Mm Biomet #650-1058 - [id number] Femoral Head Right: Biomet 05/01/2027 [id number] / Implanted: Qty: 1 on 07/21/2018 by Tremaine Godinez MD at [facility] Hip 2 [id number] / [id number] Femoral Stem Cementless Complete Reduced Size 9 Tammy Ref#[id number] Femur Right: Biomet 05/26/2028 [id number] / Implanted: Qty: 1 on 07/21/2018 by Tremaine Godinez MD at [facility] Hip 6 [id number] / [id number] Adapter Taper [place] Biomet #650-1066 - [id number] HIP Right : Biomet 03/04/2028 [id number] / Implanted: Qty: 1 on 07/21/2018 by Tremaine Godinez MD at [facility] Hip 2 [id number] / [id number] Femoral Cementless Right Porous 60mm Biomet #[id number] [[id number]] KNEE Right: Biomet 08/29/2028 [id number] / Implanted: Qty: 1 on 02/09/2019 by Tremaine Godinez MD at [facility] Knee 8 [id number] / [id number] Component Primary Tibial Modular Tray Ce mentless 71mm Vanguard Biomet Ref#[id number] KNEE Right: Biomet 05/28/2022 [id number] / Implanted: Qty: 1 on 02/09/2019 by Tremaine Godinez MD at [facility] Knee 1 [id number] / [id number] Bearing Tibial Articular 71mm/75mm Vanguard Biomet Ref#[id number] KNEE Right: Biomet 12/23/2023 [id number] / Implanted: Qty: 1 on 02/09/2019 by Tremaine Godinez MD at [facility] Knee 8 [id number] / [id number] Screw, Tammy Bone 6.5x20 Self-Tap #[phone] - [id number] S CREW Right: Tammy 01/11/2027 [id number] / Implanted: Qty: 1 on 07/21/2018 by Tremaine Godinez MD at [facility] Hip 6 [id number] / [id number] Screw, Tammy Bone 6.5x20 Self-Tap #[phone] - [id number] S CREW Right: Tammy 03/13/2028 [id number] / Implanted: Qty: 1 on 07/21/2018 by Tremaine Godinez MD at [facility] Hip 6 [id number] / [id number] Screw Bone 6.5x30mm Lp St Biomet #[id number] - [id number] Right: Biomet 12/16/2028 [id number] / Implanted: Qty: 2 on 02/09/2019 by Tremaine Godinez MD at [facility] Knee 8 / [id number] Screw Bone 6.5x30mm Lp St Biomet #[id number] - [id number] Right: Biomet 07/24/2028 [id number] / Implanted: Qty: 1 on 02/09/2019 by Tremaine Godinez MD at [facility] Knee 5 [id number] / [id number] Patella 8 X 31mm Biomet#983490 - [id number] Right: Biomet 12/18/2023 [id number] / Implanted: Qty: 1 on 02/09/2019 by Tremaine Godinez MD at [facility] Knee 8 [id number] / [id number] Stem Finned Primary 40mm Biomet #[id number] - [id number] Right: Biomet 12/18/2028 [id number] / Implanted: Qty: 1 on 02/09/2019 by Tremaine Godinez MD at [facility] Knee 5 [id number] / [id number] Screw Bone 6.5x30mm Lp St Biomet #[id number] - [id number] Right: Biomet 11/26/2028 [id number] / Implanted: Qty: 1 on 02/09/2019 by Tremaine Godinez MD at [facility] Knee 5 [id number] / [id number] documented as of this encounter Results Not on filedocumented in this encounter Visit Diagnoses Diagnosis Hyperthyroidism - Primary Thyrotoxicosis without mention of goiter or other cause, without mention of thyrotoxic crisis or storm Thyroid nodule Nontoxic uninodular goiter Tachycardia Tachycardia, unspecified Tobacco use disorder documented in this encounter Insurance Payer Benefit Plan / Subscriber ID Effective Dates Phone Addre ss Type Group [facility] [id number] 2018-Present Medicaid COMM PLAN - MANAGED MEDICAID documented as of this encounter Advance Directives Name Relationship Healthcare Agent Communication Relationship Aracelisteven Aguila Mother Health Care Agent
--- OUTSIDE RECORDS SUMMARY | 2020-06-01 06:04 | XMS REPORT | Summary of Care ---
:1975 Author Organization [facility] Address [address] [place] [address] Care Team Providers Name Role Phone Scott Anderson Primary Care Provider Reason for Referral (EDSON) Status Reason Specialty Diagnoses / Referred By Referred To Procedures Contact Contact New Request Pulmonary Disease Diagnoses Tobacco use disorder Renetta Scott Procedures CONSULT/REFERRAL PULMONARY MD Scott [address] [place] [address] Radiology Services (EDSON) Status Reason Specialty Diagnoses / Referred By Referred To Procedures Contact Contact New Request Diagnostic Diagnoses Hyperthyroidism Thyroid nodule Tachycardia Renetta Scott Radiology Procedures NM THYROID UPTAKE AND SCAN MD Scott [address] [place] [address] Reason for Visit Reason Comments New Patient pt confirm all meds and phar meron Thyroid Problem pt seend Dr Serrato, (EDSON) Status Reason Specialty Diagnoses / Procedures Referred By Denice yates To Contact Contact New Request Diagnoses Hyperthyroidism Douglas Chacon Wentong, MD Procedures CONSULT/REFERRAL ENDOCRINOLOGY Other (see comments); Preferred Location: [facility] MD Lico [address] [place] [address] [place] [phone] Phone: Fax: Encounter Details Date Type Department Care Team Description 05/30/2020 Office Visit [facility] Renetta Scott Hyperthyroid ism (Primary Dx); Endocrinology, Florence Chavez MD Thyroid nodule; [facility] [address], Tachycardia; [address] [facility], [facility] [address] Tobacco use disorder [address] [place] [address] [place], [place] [phone] Allergies No Known Allergiesdocumented as of [...] Added automatically from request for rajinder luna [id number] Morbid obesity with body mass index of 40.0-49.9 01/05 Other depression 12/15/2018 History of tubal ligation 12/15/2018 TOLU (stress urinary incontinence, female) 11/18/2018 Overview: Added automatically from request for rajinder carrasco [id number] Internal derangement of right knee 10/17/2018 Overview: Added automatically from request for rajinder carrasco [id number] S/P total hip arthroplasty 07/21/2018 Well woman [...] can not walk much, has not seen parent educator, mostly use ER for her day to [...] [facility]ually [facility] disease) 12/04/2017 [...] Right 02/09/2019 Surgeon: Tremaine Tse MD; [facility] TUBAL LIGATION unsure of date Social History [...] file Gets together: Not on file Attends church service: Not on file Active member of [...] Concern Not on file Social History Narrative Religion preference is [employer]ology. Patient lives with family. Patient has 1 [...] SCAN; Future Tachycardia - COMP. METABOLIC PANEL (06307); Future - METANEPHRINES, PLASMA; Future - NM [...] Appointment Radiology Susan Gonzalez M D [address] [place] [address] [phone] 06/08/2020 Office Visit Otolaryngology Susan Gonzalez M D [address] [place] [address] [phone] 07/05/2020 Office Visit Endocrinology Diabetes & Saad Serrato MD Metabolism [address] [place] [address] [phone] 07/11/2020 Office Visit Endocrinology Diabetes & Renetta Scott MD Metabolism [address] [address] [phone] Name Type Priority Associated Diagnoses Date/Ti me TRIIODOTHYRONINE LAB Routine Hyperthyroidism 05/30/20 20 9:27 AM CDT FREE T4 LAB Routine Hyperthyroidism 05/30/2020 9:27 AM CDT CBC WITH DIFF LAB Routine Tobacco use disorder 2019 9:27 AM CDT COMP. METABOLIC PANEL (60425) LAB Routine Tachycardia 05/30/2020 9:27 AM CDT [...] METABOLIC PANEL LAB Routine Tachycardia Expect ed: (87292) 05/30/2020, Expires: 2020 METANEPHRINES, PLASMA LAB Routine [...] of this encounter Implants Implanted Type Area Cast Iron Dipper Device Shelf Model / Identifier Expiration Serial / Lot Date Shell Acetabular G7 Cementless Limited 3 Hole Sizr F 56mm Tammy Ref#[id number] Acetabular Right: Biomet 06/08/2028 [id number] / Implanted: Qty: 1 on 07/21/2018 by Tremaine Godinez MD at [facility] Cup Hip 6 [id number] / [id number] Liner G7 Acetabular Neutral Size F 40mm Tammy Ref# [id number] Ac etabular Right: Biomet 06/08/2023 [id number] / Implanted: Qty: 1 on 07/21/2018 by Tremaine Godinez MD at [facility] Liner Hip 6 [id number] / [id number] Bone Cement Injector 1x40 High Viscosity Tammy Ref#[id number] - [id number] [id number] Right: Biomet 10/13/2022 [id number] / Implanted: Qty: 1 on 02/09/2019 by Tremaine Godinez MD at [facility] Knee 8 [id number] / [id number] Ceraminc Head 40 Mm Biomet #650-1058 - [id number] Femoral Head Right: Biomet 05/01/2027 [id number] / Implanted: Qty: 1 on 07/21/2018 by Tremaine Godinez MD at [facility] Hip 2 [id number] / [id number] Femoral Stem Cementless Complete Reduced Size 9 Tammy Ref#[id number] Femur Right: Biomet 05/26/2028 [id number] / Implanted: Qty: 1 on 07/21/2018 by Tremaine Godinez MD at [facility] Hip 6 [id number] / [id number] Adapter Taper [place] Biomet #650-1066 - [id number] HIP Right : Biomet 03/04/2028 [id number] / Implanted: Qty: 1 on 07/21/2018 by Tremaine Godinez MD at [facility] Hip 2 [id number] / [id number] Femoral Cementless Right Porous 60mm Biomet #[id number] [[id number]] KNEE Right: Biomet 08/29/2028 [id number] / Implanted: Qty: 1 on 02/09/2019 by Tremaine Godinez MD at [facility] Knee 8 [id number] / [id number] Component Primary Tibial Modular Tray Ce mentless 71mm Vanguard Biomet Ref#[id number] KNEE Right: Biomet 05/28/2022 [id number] / Implanted: Qty: 1 on 02/09/2019 by Tremaine Godinez MD at [facility] Knee 1 [id number] / [id number] Bearing Tibial Articular 71mm/75mm Vanguard Biomet Ref#[id number] KNEE Right: Biomet 12/23/2023 [id number] / Implanted: Qty: 1 on 02/09/2019 by Tremaine Godinez MD at [facility] Knee 8 [id number] / [id number] Screw, Tammy Bone 6.5x20 Self-Tap #[id number] - [id number] S CREW Right: Tammy 01/11/2027 [id number] / Implanted: Qty: 1 on 07/21/2018 by Tremaine Godinez MD at [facility] Hip 6 [id number] / [id number] Screw, Tammy Bone 6.5x20 Self-Tap #[id number] - [id number] S CREW Right: Tammy 03/13/2028 [id number] / Implanted: Qty: 1 on 07/21/2018 by Tremaine Godinez MD at [facility] Hip 6 [id number] / [id number] Screw Bone 6.5x30mm Lp St Biomet #[id number] - [id number] Right: Biomet 12/16/2028 [id number] / Implanted: Qty: 2 on 02/09/2019 by Tremaine Godinez MD at [facility] Knee 8 / [id number] Screw Bone 6.5x30mm Lp St Biomet #[id number] - [id number] Right: Biomet 07/24/2028 [id number] / Implanted: Qty: 1 on 02/09/2019 by Tremaine Godinez MD at [facility] Knee 5 [id number] / [id number] Patella 8 X 31mm Biomet#[id number] - [id number] Right: Biomet 12/18/2023 [id number] / Implanted: Qty: 1 on 02/09/2019 by Tremaine Godinez MD at [facility] Knee 8 [id number] / [id number] Stem Finned Primary 40mm Biomet #[id number] - [id number] Right: Biomet 12/18/2028 [id number] / Implanted: Qty: 1 on 02/09/2019 by Tremaine Godinez MD at [facility] Knee 5 [id number] / [id number] Screw Bone 6.5x30mm Lp St Biomet #[id number] - [id number] Right: Biomet 11/26/2028 [id number] / Implanted: Qty: 1 on 02/09/2019 by Tremaine Godinez MD at [facility] Knee 5 [id number] / [id number] documented as of this encounter Results Not on filedocumented in this encounter Visit Diagnoses Diagnosis Hyperthyroidism - Primary Thyrotoxicosis without mention of goiter or other cause, without mention of thyrotoxic crisis or storm Thyroid nodule Nontoxic uninodular goiter Tachycardia Tachycardia, unspecified Tobacco use disorder documented in this encounter Insurance Payer Benefit Plan / Subscriber ID Effective Dates Phone Addre ss Type Group [facility] [id number] 2018-Present Medicaid COMM PLAN - MANAGED MEDICAID documented as of this encounter Advance Directives Name Relationship Healthcare Agent Communication Relationship Aracelisteven Aguila Mother Health Care Agent
[2020-06-01 06:20] LABS: Absolute Lymphocytes (CBC) 1.5 K/uL (0.7-4.9); Basophils % 0.7 % (0-1.3); Hematocrit 37.4 % (36.0-45.0); Lymphocytes % 15.6 % (15.3-44.8); MPV 8.6 fL (7.6-11.3); RBC Red Blood Cell Count 4.62 M/uL (3.86-4.86)
[2020-06-01] MEDS ORDERED: MORPHINE 4 MG/ML SYR ONE ×2 (06:21→07:17)
[2020-06-01] MEDS ORDERED: ONDANSETRON 4 MG/2 ML VIAL ONE ×2 (06:21→10:46)
[2020-06-01 06:31] LABS: Urine Blood 2+ (NEG); Urine Glucose NEGATIVE (NEG); Urine Protein 3+ (NEG); Urine Specific Gravity >1.030 (1.005-1.030); Urine pH 5.5 (5.0-7.0)
[2020-06-01] MEDS ORDERED: NA CHLORIDE 0.9% 1,000 ML ONE ×2 (06:33→10:46)
[2020-06-01] MEDS ORDERED: KETOROLAC 30 MG/ML INJ ONE (07:25)
[2020-06-01 07:43] LABS: Calcium Oxalate Crystals- Ur FEW (NONE SEEN); Urine Bacteria <20 /HPF (<20); Urine Culture Reflex Order NOT NEEDED; Urine Mucus HEAVY /HPF (NONE SEEN); Urine RBC 20-50 /HPF (NONE SEEN)
[2020-06-01] MEDS ORDERED: FENTANYL CITR 100 MCG/2 ML ONE (07:51)
--- NOTE | 2020-06-01 08:07 | EDPHYS ---
Physician Documentation [facility] Name: Glo Perez Age: 45 yrs Sex: Female : 1975 Arrival Date: 06/01/2020 Time: 06:04 Bed 8 Private MD: ED Physician Wayne Glaser HPI: 06/01 06:27 This 45 yrs old Female presents to ER via EMS with complaints of abdominal kb pain. 06:27 The patient presents with abdominal pain in the left lower quadrant. Onset: The kb symptoms/episode began/occurred this morning. The symptoms do not radiate. Associated signs and symptoms: Pertinent positives: nausea, difficulty urinating, Pertinent negatives: constipation, diarrhea, fever, vomiting. The symptoms are described as constant, sharp. Modifying factors: The symptoms are alleviated by nothing, the symptoms are aggravated by pressure. Severity of pain: At its worst the pain was severe in the emergency department the pain is unchanged. The patient has not experienced similar symptoms in the past. The patient has not recently seen a physician. Pt reports she woke up with pain to LLQ. States she felt like she needed to urinate, but was only able to produce a small amount of urine. Denies similar symptoms in the past. Reports nausea, no fever, vomiting, diarrhea or constipation. . 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 - Social history:: Smoking status: Patient reports the use of cigarette tobacco products, Patient uses alcohol, street drugs. ROS: 06:21 Constitutional: Negative for fever, chills, and weight loss, Cardiovascular: Negative kb for chest pain, palpitations, and edema, Respiratory: Negative for shortness of breath, cough, wheezing, and pleuritic chest pain, Back: Negative for injury and pain, MS/Extremity: Negative for injury and deformity, Skin: Negative for injury, rash, and discoloration, Neuro: Negative for headache, weakness, numbness, tingling, and seizure. 06:21 Abdomen/GI: Positive for abdominal pain, nausea, Negative for vomiting, diarrhea, constipation. 06:21 : Positive for difficulty urinating. Exam: 06:21 Constitutional: This is a well developed, well nourished patient who is awake, alert, kb and in no acute distress. Head/Face: Normocephalic, atraumatic. Chest/axilla: Normal chest wall appearance and motion. Nontender with no deformity. No lesions are appreciated. Cardiovascular: Regular rate and rhythm with a normal S1 and S2. No gallops, murmurs, or rubs. Normal PMI, no JVD. No pulse deficits. Respiratory: Lungs have equal breath sounds bilaterally, clear to auscultation and percussion. No rales, rhonchi or wheezes noted. No increased work of breathing, no retractions or nasal flaring. Back: No spinal tenderness. No costovertebral tenderness. Full range of motion. Skin: Warm, dry with normal turgor. Normal color with no rashes, no lesions, and no evidence of cellulitis. MS/ Extremity: Pulses equal, no cyanosis. Neurovascular intact. Full, normal range of motion. Neuro: Awake and alert, GCS 15, oriented to person, place, time, and situation. Cranial nerves II-XII grossly intact. Motor strength 5/5 in all extremities. Sensory grossly intact. Cerebellar exam normal. Normal gait. 06:21 Abdomen/GI: Inspection: obese Bowel sounds: normal, in all quadrants, Palpation: soft, in all quadrants, mild abdominal tenderness, in the left upper quadrant, moderate abdominal tenderness, in the left lower quadrant. Vital Signs: 06:04 Pulse 89; Resp 18; Temp 98.3; Pulse Ox 100% on R/A; Weight 111.13 kg; Height 5 ft. 8 mg2 in. (172.72 cm); Pain 10/10; 06:14 BP 119 / 87; mg2 07:15 BP 138 / 88; Pulse 81; Resp 15; Pulse Ox 100% on R/A; Pain 9/10; hb 08:10 BP 137 / 94; Pulse 88; Resp 16; Pulse Ox 99% on R/A; Pain 6/10; hb 09:36 BP 114 / 66; Pulse 90; Resp 16; Pulse Ox 95% ; sv 10:30 BP 119 / 89; Pulse 88; Resp 16; Pulse Ox 97% ; sv 11:30 BP 117 / 85; Pulse 99; Resp 18; Pulse Ox 96% ; sv 12:00 BP 107 / 80; Pulse 95; Resp 18; Pulse Ox 96% ; sv 06:04 Body Mass Index 37.25 (111.13 kg, 172.72 cm) mg2 MDM: 06:05 Patient medically screened. kb 06:21 Data reviewed: vital signs, nurses notes. Data interpreted: Pulse oximetry: on room air kb is 100 %. Interpretation: normal. 06:31 ED course: Pt reports pain decreased after morphine administration. . kb 07:05 ED course: Dr Marsh called to give verbal report. No stone identified, no acute kb findings seen, no diverticulitis. Will order urine microscopic exam for further evaluation, dipstick negative for leukocytes/nitrite.. 07:08 ED course: Pt reevaluated. Pain returned to LLQ. Will medicate again for pain control. .kb 07:38 ED course: Pt reports pain medication helped, but the pain is not completely gone. Will kb medication with fentanyl. . 07:52 ED course: Discussed HPI and exam with ERP. Recommends obs for intractable abd pain if kb unable to control pain. . 08:00 ED course: Spoke with Dr Marsh regarding CT again to confirm there was no stone in kb the ureter. . ED course: Pt reports pain is decreased after medication, but still 6/10. Pt still appears uncomfortable. Will admit to hospitalist for intractable abdominal pain. 08:02 Counseling: I had a detailed discussion with the patient and/or guardian regarding: the kb historical points, exam findings, and any diagnostic results supporting the discharge/admit diagnosis, lab results, radiology results, the need for further work-up and treatment in the hospital. 08:05 Physician consultation: Maxim Castaneda MD was contacted at 08:05, regarding admission, kb to the medical/surgical unit. patient's condition, and will see patient in ED, shortly, would like further tests performed, pelvic US. 06/01 06:06 Order name: Basic Metabolic Panel; Complete Time: 06:33 kb 06/01 06:06 Order name: CBC with Diff; Complete Time: 06:29 kb 06/01 06:27 Order name: Urine --Ancillary (enter results); Complete Time: 06:32 ds4 06/01 06:27 Order name: Urine Dipstick--Ancillary (enter results); Complete Time: 06:32 ds4 06/01 07:05 Order name: Urine Microscopic Only; Complete Time: 07:51 kb 06/01 09:15 Order name: Urinalysis [facility] 06/01 06:10 Order name: CT Stone Protocol; Complete Time: 08:54 kb 06/01 08:04 Order name: US Pelvis Complete; Complete Time: 09:32 kb 06/01 08:43 Order name: Transvaginal Study Probe; Complete Time: 09:36 EDMS 06/01 10:55 Order name: COVID-19 bd 06/01 11:28 Order name: CORONAVIRUS EDIL 06/01 11:29 Order name: CORONAVIRUS [facility] 06/01 12:26 Order name: SARS-COV-2 RT PCR; Complete Time: 12:46 EDMS 06/01 06:06 Order name: IV Saline Lock; Complete Time: 06:07 kb 06/01 06:06 Order name: Labs collected and sent; Complete Time: 06:07 kb 06/01 06:25 Order name: Cath; Complete Time: 06:25 mg2 06/01 06:26 Order name: Urine Dipstick-Ancillary (obtain specimen); Complete Time: 06:26 mg2 06/01 06:26 Order name: Urine Test (obtain specimen); Complete Time: 06:26 mg2 06/01 06:29 Order name: Bladder Scanner; Complete Time: 06:30 kb 06/01 09:15 Order name: Regular EDMS Administered Medications: 06:13 Drug: Zofran (Ondansetron) 4 mg Route: IVP; Site: right antecubital; mg2 06:25 Follow up: Response: No adverse reaction; Nausea is decreased mg2 06:13 Drug: morphine 4 mg Route: IVP; Site: right antecubital; mg2 06:25 Follow up: Response: No adverse reaction; Pain is decreased; RASS: Alert and Calm (0) mg2 06:24 Drug: NS 0.9% 1000 ml Route: IV; Rate: 1000 ml; Site: right antecubital; mg2 08:00 Follow up: Response: No adverse reaction; IV Status: Completed infusion; IV Intake: sv 1000ml 07:11 Drug: morphine 4 mg Route: IVP; Site: right antecubital; hb 07:15 Follow up: Response: No adverse reaction; No change in condition; Pain is unchanged, physician notified; RASS: Very agitated (+3) 07:15 Drug: TORadol 30 mg Route: IVP; Site: right antecubital; sv 07:43 Follow up: Response: No adverse reaction; No change in condition; RASS: Very agitated sv (+3) 07:43 Drug: fentaNYL (PF) 50 mcg Route: IVP; Site: right antecubital; hb 08:09 Follow up: Response: No adverse reaction; No change in condition; Pain is unchanged, sv physician notified; RASS: Very agitated (+3) 08:09 Drug: fentaNYL (PF) 50 mcg Route: IVP; Site: right antecubital; Disposition: 06/01/20 08:07 Hospitalization ordered by Maxim Castaneda for Observation. Preliminary diagnosis is Lower abdominal pain, unspecified - intractable. - Bed requested for Telemetry/MedSurg (observation). - Status is Observation. iw - Condition is Stable. - Problem is new. - Symptoms are unchanged. Addendum: 06/13/2020 19:00 Co-signature as Attending Physician, Wayne Glaser MD. valorie lara Signatures: Dispatcher [employer] [facility] Isabel Card, SQUEEZER OPERATOR-C SQUEEZER OPERATOR-Ckb Corinne Cole RN RN kl Verde, Stephanie RN Wayne Zepeda MD MD pkl Williams, Irene, RN RN Piper Peralta RN RN Maxx Clark RN RN mg2 Corrections: (The following items were deleted from the chart) 06/01 06:20 06:07 Abdomen Pelvis W Con+CT.RAD.BRZ ordered. [facility] EDIL 07:10 07:05 ED course: Dr Marsh called to give verbal report. No stone identified, no acute kb findings seen, no diverticulitis. . kb 12:01 08:07 Hospitalization Ordered by Maxim Castaneda MD for Observation. Preliminary iw diagnosis is Lower abdominal pain, unspecified - intractable. Bed requested for Telemetry/MedSurg (observation). Status is Observation. Condition is Stable. Problem is new. Symptoms are unchanged. kb 12:14 12:01 06/01/2020 08:07 Hospitalization Ordered by Maxim Castaneda MD for Observation. kl Preliminary diagnosis is Lower abdominal pain, unspecified - intractable. Bed requested for [facility] ER HOLD. Status is Observation. Condition is Stable. Problem is new. Symptoms are unchanged. iw 12:59 12:14 06/01/2020 08:07 Hospitalization Ordered by Maxim Castaneda MD for Observation. iw Preliminary diagnosis is Lower abdominal pain, unspecified - intractable. Bed requested for Telemetry/MedSurg (observation). Status is Observation. Condition is Stable. Problem is new. Symptoms are unchanged. kl
--- NOTE | 2020-06-01 08:07 | ER ---
Nurse's Notes [facility] Name: Glo Perez Age: 45 yrs Sex: Female : 1975 Arrival Date: 06/01/2020 Time: 06:04 Bed 8 Private MD: Diagnosis: Lower abdominal pain, unspecified-intractable Presentation: 06/01 06:04 Chief complaint: EMS states: she has LLQ pain with nausea and urinary retention today. mg2 denies fever. Coronavirus screen: Client denies travel out of the [place] in the last 14 days. The client reports previous COVID testing was negative. Date of collection: May 21, 2020 [facility]. Ebola Screen: No symptoms or risks identified at this time. Initial Sepsis Screen: Does the patient meet any 2 criteria? No. Patient's initial sepsis screen is negative. Does the patient have a suspected source of infection? No. Patient's initial sepsis screen is negative. Risk Assessment: Do you want to hurt yourself or someone else?. Onset of symptoms was June 01, 2020. 06:04 Method Of Arrival: EMS: [facility] mg2 06:04 Acuity: [facility] 3 mg2 06:07 Care prior to arrival: Medication(s) given: fentanyl 50 mcg IV. mg2 [facility]DRAISER: 06:26 [facility] 10/2019 mg2 Historical: - Allergies: 06:09 No Known Allergies; mg2 - Home Meds: 06:09 amlodipine 5 mg tab 1 tab once daily [Active]; escitalopram oxalate 10 mg oral tab mg2 [Active]; - PMHx: 06:09 Thyroid problem; Hypertension; mg2 - PSHx: 06:09 Appendectomy; mg2 - Immunization history:: Flu vaccine is not up to date. - Social history:: Smoking status: Patient reports the use of cigarette tobacco products, Patient uses alcohol, street drugs. Screenin:14 Abuse screen: Denies threats or abuse. Denies injuries from another. Nutritional mg2 screening: No deficits noted. Tuberculosis screening: No symptoms or risk factors identified. Fall Risk IV access (20 points). Assessment: 06:14 General: Appears uncomfortable, Behavior is anxious, restless. Pain: Complains of pain mg2 in abdomen Pain currently is 10 out of 10 on a pain scale. Quality of pain is described as aching, Pain began gradually. Neuro: Level of Consciousness is awake, alert, obeys commands, Oriented to person, place, time, situation. Cardiovascular: Capillary refill < 3 seconds Patient's skin is warm and dry. Respiratory: Airway is patent Respiratory effort is even, unlabored, Respiratory pattern is regular, symmetrical. GI: Reports nausea. : Reports urinary retention. EENT: No signs and/or symptoms were reported regarding the EENT system. Derm: Skin is intact, is healthy with good turgor, Skin is pink, warm \\T\\ dry. normal. Musculoskeletal: Circulation, motion, and sensation intact. Capillary refill < 3 seconds. 06:52 Reassessment: Joselyn () [phone]. ea 07:14 Reassessment: Pt restless, crying, moaning loudly "Oh god, oh god." SAFETY ADMINISTRATOR Isabel rene notified, repeat morphine administered as ordered. 07:44 Reassessment: Pt moaning and crying out, SAFETY ADMINISTRATOR Marah at bedside. Fentanyl administered hb as ordered. 08:10 Reassessment: Pt moaning loudly, restless, VSS. Repeat Fentanyl administered as hb ordered. Admission ordered, awaiting hospitalist at this time. 09:00 Reassessment: Patient appears in no apparent distress at this time. Patient and/or hb family updated on plan of care and expected duration. Pain level reassessed. Patient is alert, oriented x 3, equal unlabored respirations, skin warm/dry/pink. 10:00 Reassessment: Patient appears in no apparent distress at this time. Patient and/or hb family updated on plan of care and expected duration. Pain level reassessed. Patient is alert, oriented x 3, equal unlabored respirations, skin warm/dry/pink. 11:00 Reassessment: Patient appears in no apparent distress at this time. Patient and/or hb family updated on plan of care and expected duration. Pain level reassessed. Patient is alert, oriented x 3, equal unlabored respirations, skin warm/dry/pink. 12:00 Reassessment: Patient appears in no apparent distress at this time. Patient and/or hb family updated on plan of care and expected duration. Pain level reassessed. Patient is alert, oriented x 3, equal unlabored respirations, skin warm/dry/pink. Vital Signs: 06:04 Pulse 89; Resp 18; Temp 98.3; Pulse Ox 100% on R/A; Weight 111.13 kg; Height 5 ft. 8 mg2 in. (172.72 cm); Pain 10/10; 06:14 BP 119 / 87; mg2 07:15 BP 138 / 88; Pulse 81; Resp 15; Pulse Ox 100% on R/A; Pain 9/10; hb 08:10 BP 137 / 94; Pulse 88; Resp 16; Pulse Ox 99% on R/A; Pain 6/10; hb 09:36 BP 114 / 66; Pulse 90; Resp 16; Pulse Ox 95% ; sv 10:30 BP 119 / 89; Pulse 88; Resp 16; Pulse Ox 97% ; sv 11:30 BP 117 / 85; Pulse 99; Resp 18; Pulse Ox 96% ; sv 12:00 BP 107 / 80; Pulse 95; Resp 18; Pulse Ox 96% ; sv 06:04 Body Mass Index 37.25 (111.13 kg, 172.72 cm) mg2 ED Course: 06:04 Patient arrived in ED. mg2 06:05 Isabel [facility]C [facility] kb 06:05 Wayne Glaser MD is Attending Physician. kb 06:07 Triage completed. mg2 06:09 Arm band placed on. mg2 06:13 No provider procedures requiring assistance completed. Maintain EMS IV. Dressing mg2 intact. Good blood return noted. Site clean \\T\\ dry. Gauge \\T\\ site: 22 RAC. 06:15 Patient has correct armband on for positive identification. mg2 06:24 Maxx Clark, FRANCISCA is Primary Nurse. mg2 06:26 Straight cath inserted, using sterile technique, 16 Fr. Returned aleksandra urine. Patient mg2 tolerated. 06:50 CT Stone Protocol In Process Unspecified. EDMS 08:06 Maxim Castaneda MD is Hospitalizing Provider. kb 09:00 US Pelvis Complete In Process Unspecified. EDMS 09:00 Transvaginal Study Probe In Process Unspecified. EDMS 09:07 Awaiting bed assignment. sv 09:42 Awaiting bed assignment. sv 12:26 Patient admitted, IV remains in place. hb Administered Medications: 06:13 Drug: Zofran (Ondansetron) 4 mg Route: IVP; Site: right antecubital; mg2 06:25 Follow up: Response: No adverse reaction; Nausea is decreased mg2 06:13 Drug: morphine 4 mg Route: IVP; Site: right antecubital; mg2 06:25 Follow up: Response: No adverse reaction; Pain is decreased; RASS: Alert and Calm (0) mg2 06:24 Drug: NS 0.9% 1000 ml Route: IV; Rate: 1000 ml; Site: right antecubital; mg2 08:00 Follow up: Response: No adverse reaction; IV Status: Completed infusion; IV Intake: sv 1000ml 07:11 Drug: morphine 4 mg Route: IVP; Site: right antecubital; hb 07:15 Follow up: Response: No adverse reaction; No change in condition; Pain is unchanged, sv physician notified; RASS: Very agitated (+3) 07:15 Drug: TORadol 30 mg Route: IVP; Site: right antecubital; sv 07:43 Follow up: Response: No adverse reaction; No change in condition; RASS: Very agitated sv (+3) 07:43 Drug: fentaNYL (PF) 50 mcg Route: IVP; Site: right antecubital; hb 08:09 Follow up: Response: No adverse reaction; No change in condition; Pain is unchanged, sv physician notified; RASS: Very agitated (+3) 08:09 Drug: fentaNYL (PF) 50 mcg Route: IVP; Site: right antecubital; hb Intake: 08:00 IV: 1000ml; Total: 1000ml. sv Outcome: 08:07 Decision to Hospitalize by Provider. kb 12:26 Admitted to Med/surg accompanied by tech, via wheelchair, room 215, with chart, Report hb called to Weston ESPINOSA 12:26 Condition: stable 12:26 Instructed on the need for admit, Demonstrated understanding of instructions. 12:59 Patient left the ED. iw Signatures: Dispatcher [employer] EDOK Isabel Card, HATCHERY SUPERVISOR-C HATCHERY SUPERVISOR-Amelia Rodríguez RN Cheri Yoo RN RN iw Baxter, Heather, RN RN Radha Jordan RN RN ea Gardose, Michele RN RN mg2 Corrections: (The following items were deleted from the chart) 07:20 07:15 TORadol 30 mg IVP in right forearm sv sv 08:10 08:10 BP 137 / 94; Pulse 88bpm; Resp 16bpm; Pulse Ox 99%; hb hb
--- NOTE | 2020-06-01 08:50 | RAD REPORT ---
EXAM DESCRIPTION: CT - Stone Protocol - 06/01/2020 8:28 am CLINICAL HISTORY: ABD PAIN Left lower quadrant pain, hematuria COMPARISON: Chest For Pe Angio dated 05/18/2020 TECHNIQUE: Axial [address] imaging of the abdomen and pelvis was performed without IV contrast. No IV contrast was given because of allergy, abnormal renal function, patient refusal or physician re quest. Oral contrast was given. All CT scans are performed using dose optimization technique as appropriate and may include automated exposure control or mA/KV adjustment according to patient size. FINDINGS: Patchy airspace opacification is present at the right lung base believed to be persistent or remnant infiltrate from the findings on the May 18 CT chest. Patient has cardiomegaly without pe ricardial effusion. No abnormal fluid retention in the subcutaneous fatty tissues. The liver, spleen and pancreas show no suspicious findings on non-contrast imaging. Gallbladder and b iliary tree are also without suspicious finding. Gallstones can be occult on CT imaging. Active gallb ladder process is not suspected. No right-sided hydronephrosis. No right-sided obstructing calculi. There is mild fullness of the left collecting system but no left ureteral calculus seen. Patient does have vascular calcifications but none can be placed within the ureter. No significant adrenal finding. Isodense renal masses and pyelo nephritis cannot be excluded in the absence of IV contrast. Urinary bladder is fully contracted. No b ladder calculi seen. Uterus, ovaries and adnexa show no acute or suspicious findings. No dilated bowel loops or bowel wall thickening. Appendix is not clearly defined. No appendicitis or other acute finding identifiable. No diverticulitis. No free air, free fluid or inflammatory strandin g. No hernia, mass or bulky lymphadenopathy. Pelvic floor assessment is limited due to the right hip prosthesis spray artifact. No acute bone find ing. SI joint degenerative changes are present. Patient has advanced for age degenerative change in t he lower lumbar facet joints. Due to a PACs malfunction, the images were initially available for review in the exception folder. A verbal report was telephoned to the emergency department. This report was delivered without availabil ity of full history or any comparison study. IMPRESSION: Mild fullness to the left renal collecting system without an obstructing calculus identi fiable at this time. Blood or inflammatory debris within the ureter can potentially cause dilatation. A recently passed stone is possible. Isodense masses and pyelonephritis are not excluded on a stone protocol study. No diverticulitis or other acute GI process identifiable. Advanced for age degenerative change in the lower lumbar facet joints.
[2020-06-01] MEDS ORDERED: ONDANSETRON 4 MG/2 ML VIAL IV PRN (09:11)
[2020-06-01] MEDS ORDERED: ACETAMINOPHEN 500 MG TAB PO PRN (09:11)
--- NOTE | 2020-06-01 09:31 | RAD REPORT ---
EXAM DESCRIPTION: US - Pelvis Complete - 06/01/2020 9:00 am CLINICAL HISTORY: ABD PAIN COMPARISON: Transvaginal Study Probe dated 06/01/2020; Stone Protocol dated 06/01/2020 TECHNIQUE: Transabdominal pelvic sonography was performed. FINDINGS: Normal sized uterus is identified. Endometrial stripe is 9 mm. No focal endometrial mass o r polyp identified. Myometrium is heterogeneous but no dominant mass or clinically significant myomet rial finding. A 17 millimeter right ovarian anechoic cyst is present. No dominant solid or cystic rig ht ovarian or right adnexal finding. Left ovary is not clearly identifiable. No left adnexal mass seen. Left ovary is possibly obscured by bowel. The patient did give a history of remote tubal . Patient may have undergone oophorec suyapa and salpingectomy at that time. IMPRESSION: As detailed above, no significant or suspicious pelvic finding.
--- NOTE | 2020-06-01 09:33 | RAD REPORT ---
EXAM DESCRIPTION: US - Transvaginal Study Probe - 06/01/2020 9:00 am CLINICAL HISTORY: PELVIC PAIN COMPARISON: Pelvis Complete dated 06/01/2020 TECHNIQUE: Endovaginal sonography was performed. FINDINGS: Endovaginal sonography performed and shows a normal sized uterus. Myometrium is heterogene ous but no clearly definable mass. Endometrial stripe is 09-2010 mm with normal endometrium -myometri um interface. No discrete endometrial mass or polyp. Patient has a small 17 millimeter anechoic right ovarian cyst. No suspicious right adnexal finding. Left ovary was not identifiable. No left adnexal mass. Patient gives a history of tubal man y years earlier. Patient may have undergone oophorectomy at that time. IMPRESSION: As detailed above, endovaginal sonography shows no suspicious or emergent finding.
--- NOTE | 2020-06-01 09:38 | P.HP ---
Certification for Inpatient Patient admitted to: Observation With expected LOS: <2 Midnights Practitioner: I am a practitioner with admitting privileges, knowledge of patient current condition, hospital course, and medical plan of care. Services: Services provided to patient in accordance with Admission requirements found in Title 42 Section 412.3 of the Code of Federal Regulations Patient History Date of Service: 06/01/20 Reason for admission: left lower quadrant abdominal pain History of Present Illness: 45 yrs old female with past medical history of hypertension, anxiety and history of arthritis of the hip right side status post total hip replacement presents to ER with complaints of abdominal pain started all of a sudden associated with dysuria and nausea and vomiting. denies any melena or hematemesis. No fever or chills. Pain is intermittent. located at Left low in radiating into the left lower quadrant, 5/10 severity, sharp, associated with nausea . Patient also complains of dysuria . Patient was assessed in the ER and was admitted for further management of the left lower quadrant pain. Allergies No Known Allergies Allergy (Unverified 06/01/20 09:33) - Past Medical/Surgical History Past Medical History: Reviewed- Non-Contributory -: HTN -: Anxiety Past Surgical History: Reviewed- Non-Contributory -: right THR -: Tubal ligation -: Knee surgery - Family History Family History: Reviewed- Non-Contributory - Social History Smoking Status: Current every day smoker Counseled patient to stop smoking for: more than 10 minutes Review of Systems 10-point ROS is otherwise unremarkable Physical Examination - Vital Signs Temperature: 98.2 F Blood Pressure: 138/78 Pulse: 78 Respirations: 18 - Physical Exam General: Alert, In no apparent distress HEENT: Atraumatic, Normocephalic Neck: Supple, 2+ carotid pulse no bruit Respiratory: Diminished, Crackles/rales Cardiovascular: Regular rate/rhythm, Normal S1 S2 Capillary refill: <2 Seconds Gastrointestinal: Other ( tenderness in the left lower quadrant, no hepatosplenomegaly appreciated, Calderon signs neg ) Musculoskeletal: No clubbing, No swelling Integumentary: No rashes, No tenderness/swelling Neurological: Normal speech, Normal strength at 5/5 x4 extr Lymphatics: No axilla or inguinal lymphadenopathy - Studies Laboratory Data (last 24 hrs) 06/01/20 06:08: WBC 9.9, Hgb 12.3, Hct 37.4, Plt Count 353 08/19/20 06:08: Sodium 141, Potassium 4.0, BUN 14, Creatinine 0.85, Glucose 128 H Assessment and Plan - Problems (Diagnosis) (1) Ureteric colic Current Visit: Yes Status: Acute (2) Hematuria Current Visit: Yes Status: Acute (3) Hypertension Current Visit: Yes Status: Acute (4) Anxiety Current Visit: Yes Status: Acute - Plan Ureteric Colic Intractable abdominal pain Left lower quadrant pain Hematuria Possible Pneumonia as per CT Hypertension Anxiety Plan Pain control For monitor under tele IV antibiotic Continue home medications and titrate as needed Will get a repeat x-ray chest Monitor closely GI/DVT prophylaxis - Advance Directives Does patient have a Living Will: No Does patient have a Durable POA for Healthcare: No Time Spent Managing Pts Care (In Minutes): 42
[2020-06-01] MEDS: CEFTRIAXONE/SWI 1gm 1 GM/10 ML SYR IV SCH (09:41)
[2020-06-01] MEDS ORDERED: TAMSULOSIN 0.4 MG SR CAP PO ONE (09:41)
[2020-06-01] MEDS: NA CHLORIDE 0.9% 1,000 ML IV SCH ×2 (10:00→21:27)
[2020-06-01] MEDS: AZITHROMYCIN IV 500 MG in NA CHLORIDE 0.9% 250 ML IVPB SCH (10:00)
[2020-06-01] MEDS ORDERED: CEFTRIAXONE/SWI 1gm 1 GM/10 ML SYR ONE (10:46)
[2020-06-01] MEDS ORDERED: TAMSULOSIN 0.4 MG SR CAP ONE (10:46)
[2020-06-01] MEDS ORDERED: MORPHINE 2 MG/ML SYR ONE (10:46)
[2020-06-01] MEDS: MORPHINE 2 MG/ML SYR IV PRN ×2 (10:47→14:48)
[2020-06-01 13:03] VITALS: BMI 37.2
[2020-06-01 13:33] VITALS: O2SAT 96
[2020-06-01] MEDS: HYDROCODONE/APAP 7.5/325 MG TAB PO PRN ×2 (13:45→18:05)
[2020-06-01] MEDS ORDERED: PNEUMOCOCCAL VACCINE 0.5 ML IMVAC ONE (15:00)
[2020-06-01] MEDS ORDERED: KETOROLAC 30 MG/ML INJ IV PRN (15:35)
[2020-06-01 15:42] LABS: Urine Appearance CLEAR; Urine Blood 3+ (NEG); Urine Color DK YELLOW; Urine Glucose NEGATIVE (NEG); Urine Protein 2+ (NEG); Urine Specific Gravity >=1.030 (1.005-1.030); Urine pH 5.5 (5.0-7.0)
[2020-06-01] MEDS: HYDROMORPHONE HCL 1 MG/ML INJ IV PRN ×2 (15:44→21:28)
[2020-06-01 16:07] LABS: Urine Microscopic Reflex ORDER UMIC
[2020-06-01 16:08] LABS: Urine Bilirubin 1+ (NEG)
[2020-06-01 16:26] LABS: Urine Bacteria <20 /HPF (<20)
[2020-06-01 16:27] LABS: Urine Culture Reflex Order NOT NEEDED; Urine Mucus 2+ /HPF (NONE SEEN)
[2020-06-02] MEDS: HYDROMORPHONE HCL 1 MG/ML INJ IV PRN (02:29)
[2020-06-02] MEDS: NA CHLORIDE 0.9% 1,000 ML IV SCH (08:11)
[2020-06-02] MEDS: CEFTRIAXONE/SWI 1gm 1 GM/10 ML SYR IV SCH (08:11)
[2020-06-02 08:29] LABS: Absolute Lymphocytes (CBC) 1.9 K/uL (0.7-4.9); Basophils % 0.8 % (0-1.3); Hematocrit 35.2 % (36.0-45.0); Lymphocytes % 26.5 % (15.3-44.8); MPV 9.3 fL (7.6-11.3); RBC Red Blood Cell Count 4.34 M/uL (3.86-4.86)
[2020-06-02 08:45] LABS: ALT/SGPT 17 U/L (12-78); AST/SGOT 18 U/L (15-37); Albumin 2.9 g/dL (3.4-5.0); Alkaline Phosphatase 80 U/L (45-117); BUN Blood Urea Nitrogen 8 mg/dL (7-18); Bicarbonate 21 mmol/L (21-32); Bilirubin Total 0.4 mg/dL (0.2-1.0); Glucose Level 108 mg/dL (74-106); Protein, Total 6.6 g/dL (6.4-8.2); Sodium Level 139 mmol/L (136-145)
[2020-06-02] MEDS: AZITHROMYCIN IV 500 MG in NA CHLORIDE 0.9% 250 ML IVPB SCH (10:20)
--- NOTE | 2020-06-02 11:09 | P.DS ---
Admission Date: 06/01/20 Discharge Date: 06/02/20 Disposition: ROUTINE DISCHARGE Discharge Condition: GOOD Reason for Admission: left lower quadrant abdominal pain - Problems (1) Ureteric colic Status: Acute (2) Hematuria Status: Acute (3) Hypertension Status: Acute (4) Anxiety Status: Acute Brief History of Present Illness: 45 yrs old female with past medical history of hypertension, anxiety and history of arthritis of the hip right side status post total hip replacement presents to ER with complaints of abdominal pain started all of a sudden associated with dysuria and nausea and vomiting. denies any melena or hematemesis. No fever or chills. Pain is intermittent. located at Left low in radiating into the left lower quadrant, 5/10 severity, sharp, associated with nausea . Patient also complains of dysuria . Patient was assessed in the ER and was admitted for further management of the left lower quadrant pain. Hospital Course: Ureteric Colic Intractable abdominal pain Left lower quadrant pain Hematuria Possible Pneumonia as per CT Hypertension Anxiety The patient was admitted and was started on IV pain medications along with IV antibiotic CT showed Mild fullness to the left renal collecting system without an obstructing calculus identifiable at this time. Blood or inflammatory debris within the ureter can potentially cause dilatation. A recently passed stone is possible. Also showed possible pneumonia and was started on IV antibiotic Continued home medications and titrate as needed Had a COVID 19 test which was negative patient responded well to the treatment and wanted to go home The patient is being discharged home today in a stable condition with advice to follow up with PCP in 1 week and also with urology as outpatient Vital Signs/Physical Exam: Temp Pulse Resp BP Pulse Ox 97.4 F 96 H 17 110/55 L 94 06/02/20 08:15 06/02/20 08:15 06/02/20 08:15 06/02/20 08:15 06/02/20 08:15 General: Alert, In no apparent distress HEENT: Atraumatic, Normocephalic Neck: Supple Respiratory: Clear to auscultation bilaterally Cardiovascular: Normal pulses, Regular rate/rhythm Capillary refill: <2 Seconds Gastrointestinal: Soft and benign, W/out hepatosplenomegaly Musculoskeletal: No clubbing, No swelling Integumentary: No rashes, No breakdown Neurological: Normal speech, Normal strength at 5/5 x4 extr Lymphatics: No axilla or inguinal lymphadenopathy Laboratory Data at Discharge: WBC 7.3 K/uL (4.3-10.9) D 06/02/20 07:53 Hgb 11.6 g/dL (12.0-15.0) L 06/02/20 07:53 Hct 35.2 % (36.0-45.0) L 06/02/20 07:53 Plt Count 318 K/uL (152-406) 06/02/20 07:53 Sodium 139 mmol/L (136-145) 06/02/20 07:53 Potassium 4.0 mmol/L (3.5-5.1) 06/02/20 07:53 BUN 8 mg/dL (7-18) 06/02/20 07:53 Creatinine 0.68 mg/dL (0.55-1.3) 06/02/20 07:53 Glucose 108 mg/dL (74-106) H 06/02/20 07:53 Total Bilirubin 0.4 mg/dL (0.2-1.0) 06/02/20 07:53 AST 18 U/L (15-37) 06/02/20 07:53 ALT 17 U/L (12-78) 06/02/20 07:53 Alkaline Phosphatase 80 U/L (45-117) 06/02/20 07:53 Home Medications: Amlodipine [Norvasc*] 5 mg PO DAILY 06/01/20 Escitalopram [Lexapro*] 10 mg PO DAILY 06/01/20 Cefuroxime [Ceftin] 500 mg PO BID #14 tab 06/02/20 Codeine/APAP [Tylenol W/Codeine #3 tab] 1 tab PO Q6HP PRN #15 tab 06/02/20 Ketorolac [Toradol] 10 mg FT Q6H PRN #14 tab 06/02/20 New Medications: Cefuroxime [Ceftin] 500 mg PO BID #14 tab Ketorolac [Toradol] 10 mg FT Q6H PRN #14 tab PRN Reason: Pain Scale 5-7 (Moderate) Codeine/APAP [Tylenol W/Codeine #3 tab] 1 tab PO Q6HP PRN #15 tab PRN Reason: Pain Time spent managing pt's care (in minutes): 42
[2020-06-02 11:52] VITALS: BP 109/70; TEMP 98.4
== END 2020-06-02 12:25 | disposition home or self-care (01) ==
LOC: ER 06:00 → ERHOLD 09:26 → 2ND 12:26
PROVIDERS: ADMIT Family Medicine; ATTEND Family Medicine
DX: N23 Unspecified renal colic (principal); R31.9 Hematuria, unspecified; I10 Essential (primary) hypertension; F41.9 Anxiety disorder, unspecified; F17.210 Nicotine dependence, cigarettes, uncomplicated; Z71.6 Tobacco abuse counseling; M16.11 Unilateral primary osteoarthritis, right hip; Z96.641 Presence of right artificial hip joint; Z20.828 Contact with and (suspected) exposure to other viral communicable diseases
CPT/HCPCS: 96361; 85025 ×2; 80048; 36415 ×2; 81025; 80053; 76377; 74176; 76856; 76830; 51702; 96375; 96374; 99285; U0003; J0456 ×2; J3010; J2270 ×2; J1170 ×3; J0696 ×2; J7050 ×2; J7030 ×4; J2405 ×2; G0378 ×3; 81003; 81015

== ENCOUNTER 2021-05-19 13:51 | Emergency (ER) | payer OTHER ==
--- OUTSIDE RECORDS SUMMARY | 2021-05-19 13:54 | XMS REPORT | Continuity of Care Document ---
:1975 Author Organization [facility] t Address [address] [place] [address] [address]. Cast[address] [place] [address] Care Team Providers Name Role Phone Anderson ESPINOSA, Liat Hagen Attending Clinician Unavailable Problems This patient has no known problems. Allergies, Adverse Reactions, Alerts This patient has no known allergies or adverse reactions. Medications This patient has no known medications. Procedures This patient has no known procedures. Encounters Start End Encounter Admission Attending Care Care Encounter Source Date/Time Date/Time Type Type Clinicians Facility Department ID 2021-05-08 2021-05-08 Telephone Anderson Shane [id number] 00:00:00 00:00:00 , Liat Sherwood [id number] Jany [id number] Results This patient has no known results.
[2021-05-19 15:02] LABS: Urine Blood Trace-lysed (Negative); Urine Glucose Negative (Negative); Urine Protein Negative (Negative); Urine Specific Gravity 1.025 (1.005-1.030); Urine pH 5.5 (5.0-7.0)
--- NOTE | 2021-05-19 15:30 | RAD REPORT ---
EXAM DESCRIPTION: RAD - Chest Pa And Lat (2 Views) - 05/19/2021 3:13 pm CLINICAL HISTORY: PAIN Chest pain. COMPARISON: Chest Single View dated 05/17/2020 FINDINGS: The lungs are clear. The heart is mildly enlarged in size. No displaced fractures. IMPRESSION: Mild cardiomegaly
[2021-05-19 16:39] LABS: Absolute Lymphocytes (CBC) 1.5 K/uL (0.7-4.9); Basophils % 0.6 % (0-1.3); Hematocrit 37.3 % (36.0-45.0); Lymphocytes % 25.6 % (15.3-44.8); MPV 8.4 fL (7.6-11.3); RBC Red Blood Cell Count 4.62 M/uL (3.86-4.86)
[2021-05-19 16:50] LABS: Protime INR 0.97
[2021-05-19 16:59] LABS: ALT/SGPT 28 U/L (12-78); AST/SGOT 17 U/L (15-37); Albumin 3.4 g/dL (3.4-5.0); Alkaline Phosphatase 92 U/L (45-117); BUN Blood Urea Nitrogen 14 mg/dL (7-18); Bicarbonate 26 mmol/L (21-32); Bilirubin Direct 0.2 mg/dL (0-0.2); Bilirubin Total 0.5 mg/dL (0.2-1.0); Glucose Level 110 mg/dL (74-106); Magnesium 2.1 mg/dL (1.8-2.4); NT PRO-BNP 1461 pg/mL (<125); Sodium Level 142 mmol/L (136-145); Troponin (Emerg Dept Use Only) 0.02 ng/mL (0.0-0.045)
[2021-05-19] MEDS ORDERED: FENTANYL CITR 100 MCG/2 ML ONE (17:15)
[2021-05-19] MEDS ORDERED: ASPIRIN 81 MG CHEWABLE TABLET ONE (17:16)
[2021-05-19 17:25] LABS: Urine Specific Gravity/Preg 1.025 (1.005-1.030)
[2021-05-19] MEDS ORDERED: FUROSEMIDE 20 MG/ 2ML VIAL ONE (18:44)
--- NOTE | 2021-05-19 18:50 | RAD REPORT ---
EXAM DESCRIPTION: CT - Chest For Pe Angio - 05/19/2021 6:34 pm CLINICAL HISTORY: Chest pain. Chest pain;SOB COMPARISON: Chest For Pe Angio dated 05/18/2020 TECHNIQUE: CT angiogram of the pulmonary arteries was performed with MIP. All CT scans are performed using dose optimization technique as appropriate and may include automated exposure control or mA/KV adjustment according to patient size. FINDINGS: No evidence of pulmonary thromboembolism. No acute aortic finding demonstrated. Heart size is mildly enlarged. Mild interstitial pulmonary edema suspected. No significant pericardial or pleural fluid. No concerning bony finding. IMPRESSION: No evidence of pulmonary thromboembolism. Mild CHF pattern is possible.
--- NOTE | 2021-05-19 20:08 | ER ---
Nurse's Notes [facility] Name: Glo Perez Age: 46 yrs Sex: Female : 1975 Arrival Date: 05/19/2021 Time: 13:56 Bed 8 Private MD: Diagnosis: Unspecified combined systolic (congestive) and diastolic (congestive) heart failure Presentation: 05/19 14:33 Chief complaint: Patient states: Chest tightness/aching that radiates to back x 3 days. kg Pt stated, "I havent used meth in 2 days. ". Coronavirus screen: Client denies travel out of the [place] in the last 14 days. At this time, unable to obtain information related to travel outside the [place] At this time, the client does not indicate any symptoms associated with coronavirus-19. Ebola Screen: Patient negative for fever greater than or equal to 101.5 degrees Fahrenheit, and additional compatible Ebola Virus Disease symptoms Patient denies exposure to infectious person. Patient denies travel to an Ebola-affected area in the 21 days before illness onset. Initial Sepsis Screen: Does the patient meet any 2 criteria? No. Patient's initial sepsis screen is negative. Does the patient have a suspected source of infection? No. Patient's initial sepsis screen is negative. Risk Assessment: Do you want to hurt yourself or someone else? Patient reports no desire to harm self or others. Onset of symptoms was May 16, 2021. 14:33 Method Of Arrival: Ambulatory kg 14:33 Acuity: LANA 3 kg 14:42 Chief complaint:. kg Triage Assessment: 14:36 General: Appears in no apparent distress. Behavior is cooperative, appropriate for age, kg crying, quiet. Pain: Complains of pain in anterior aspect of left upper chest and left breast Pain radiates to left scapular area and left subscapular area. Cardiovascular: No deficits noted. 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 - Social history:: Smoking status: Patient reports the use of cigarette tobacco products, smokes one-half pack cigarettes per day, Patient uses alcohol, occasionally. street drugs, Methamphetamine (Meth). Screenin:37 Abuse screen: Denies threats or abuse. Denies injuries from another. Nutritional kg screening: No deficits noted. Tuberculosis screening: No symptoms or risk factors identified. Fall Risk None identified. Assessment: 17:05 General: Appears in no apparent distress. Behavior is calm, cooperative. Pain: Pain hb currently is 7 out of 10 on a pain scale. Neuro: Level of Consciousness is awake, alert, obeys commands, Oriented to person, place, time, situation. Cardiovascular: Patient's skin is warm and dry. Rhythm is regular. Cardiovascular: Reports chest pain, shortness of breath. Respiratory: Respiratory effort is even, unlabored, Respiratory pattern is regular, symmetrical. GI: No signs and/or symptoms were reported involving the gastrointestinal system. : No signs and/or symptoms were reported regarding the genitourinary system. EENT: No signs and/or symptoms were reported regarding the EENT system. Derm: Skin is pink, warm \\T\\ dry. Musculoskeletal: 18:06 Reassessment: Patient appears in no apparent distress at this time. Patient and/or hb family updated on plan of care and expected duration. Pain level reassessed. Patient is alert, oriented x 3, equal unlabored respirations, skin warm/dry/pink. 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 Vital Signs: 14:33 BP 113 / 73; Pulse 89; Resp 20; Temp 98.0(TE); Pulse Ox 99% on R/A; Weight 115.21 kg kg (M); Height 5 ft. 8 in. (172.72 cm) (R); Pain 7/10; 17:05 BP 128 / 98; Pulse 111; Resp 17; Pulse Ox 94% on R/A; Pain 7/10; hb 19:02 BP 121 / 74; Pulse 102; Resp 17; Pulse Ox 98% on R/A; hb 14:33 Body Mass Index 38.62 (115.21 kg, 172.72 cm) kg ED Course: 13:56 Patient arrived in ED. mr 14:35 Triage completed. kg 14:38 Arm band placed on right wrist. kg 15:13 XRAY Chest Pa And Lat (2 Views) In Process Unspecified. EDMS 15:49 Jermaine Walker PA is PHCP. cp 15:50 Malick Samayoa MD is Attending Physician. cp 16:27 Inserted saline lock: 20 gauge in left antecubital area, using aseptic technique. Blood mt collected. 16:40 Piper Peralta, RN is Primary Nurse. hb 17:05 Patient has correct armband on for positive identification. Placed in gown. Bed in low hb position. Call light in reach. teletypesetter monitor on. Pulse ox on. NIBP on. 17:05 Patient maintains SpO2 saturation greater than 95% on room air. hb 18:11 Pulse ox on. NIBP on. mb4 18:12 Diet: Patient given ice chips. Patient given water. mb4 18:34 CT Chest For PE Angio In Process Unspecified. EDMS 19:42 No provider procedures requiring assistance completed. IV discontinued, No lp1 redness/swelling at site. Pressure dressing applied. 20:07 Jimy Martines MD is Referral Physician. cp Administered Medications: 17:15 Drug: Aspirin Chewable Tablet 324 mg Route: PO; hb 17:15 Drug: fentaNYL (PF) 25 mcg Route: IVP; Site: left antecubital; hb 18:40 Not Given (Patient Refused): Lasix (furosemide) 20 mg IVP once; give over 2 minutes hb Outcome: 19:42 AMA AMA form signed lp1 19:42 Condition: stable 20:14 Patient left the ED. lp1 Signatures: Dispatcher [employer] [facility] Danette MckeonAdrianne RN RN lp1 Jermaine Walker PA PA cp Piper Peralta, FRANCISCA ESPINOSA Flakita Castelan al Mag Peralta mb4 Erica March RN RN kg Corrections: (The following items were deleted from the chart) 14:42 14:33 Chief complaint: Patient states: Chest tightness/aching that radiates to back x 3 kg days. kg 18:40 18:10 Lasix (furosemide) 20 mg IVP in right antecubital hb hb
--- NOTE | 2021-05-19 20:08 | EDPHYS ---
Physician Documentation [facility] Name: Glo Perez Age: 46 yrs Sex: Female : 1975 Arrival Date: 05/19/2021 Time: 13:56 Bed 8 Private MD: ED Physician Malick Samayoa HPI: 05/19 16:25 This 46 yrs old Female presents to ER via Ambulatory with complaints of Chest cp Tightness. 16:25 The patient or guardian reports chest pain that is located primarily in the anterior cp chest wall, left. 16:25 Onset: 2 day(s) ago. The pain radiates to back. Associated signs and symptoms: cp Pertinent positives: shortness of breath, Pertinent negatives: abdominal pain, cough, diaphoresis, lower extremity pain, lower extremity swelling, syncope. The chest pain is described as tightness. Duration: The patient or guardian reports a single episode, that is still ongoing, and unchanged. Modifying factors: the symptoms are aggravated by activity. 18:40 Patient admits to history of injecting methamphetamine with last use 2 days ago. cp History of HTN, CHF. Patient admits to not taking prescribed medications for chronic conditions. 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 - Social history:: Smoking status: Patient reports the use of cigarette tobacco products, smokes one-half pack cigarettes per day, Patient uses alcohol, occasionally. street drugs, Methamphetamine (Meth). ROS: 16:28 Constitutional: Positive for fatigue. cp 16:28 Cardiovascular: Positive for chest tightness, Negative for edema, palpitations. 16:28 Respiratory: Positive for shortness of breath, on exertion. 16:28 Eyes: Negative for injury, pain, redness, and discharge. cp 16:28 ENT: Negative for ear pain, sore throat, difficulty swallowing, difficulty handling cp secretions. 16:28 Abdomen/GI: Negative for abdominal pain, nausea, vomiting, and diarrhea, constipation, black/tarry stool, rectal bleeding. 16:28 Back: Negative for injury or acute deformity, decreased range of motion. 16:28 Skin: Negative for rash. 16:28 Neuro: Negative for altered mental status, headache, syncope, weakness. 16:28 All other systems are negative. Exam: 15:30 ECG was reviewed by the Attending Physician. cp 16:30 Constitutional: The patient appears in no acute distress, alert, awake, cp non-diaphoretic, non-toxic, well developed, well nourished, obese. 16:30 Head/Face: Normocephalic, atraumatic. cp 16:30 Eyes: Periorbital structures: appear normal, Pupils: equal, round, and reactive to light and accomodation, Extraocular movements: intact throughout, Conjunctiva: normal, no exudate, no injection, Sclera: no appreciated abnormality, Lids and lashes: appear normal, bilaterally. 16:30 ENT: External ear(s): are unremarkable, Nose: is normal, Mouth: Lips: moist, Oral mucosa: moist, Posterior pharynx: Airway: no evidence of obstruction, patent. 16:30 Neck: ROM/movement: is normal, is supple, without pain, no range of motions limitations, no nuchal rigidity. 16:30 Chest/axilla: Inspection: normal, Palpation: crepitus, is not appreciated, tenderness, that is mild, of the anterior aspect of left upper chest. 16:30 Cardiovascular: Rate: bradycardic, Rhythm: regular, Edema: is not appreciated, JVD: is not appreciated. 16:30 Respiratory: the patient does not display signs of respiratory distress, Respirations: labored breathing, that is mild, intercostal retractions, are absent, shallow respirations, are not present, Breath sounds: are clear throughout, no decreased breath sounds, no stridor, no wheezing. 16:30 Abdomen/GI: Inspection: abdomen appears normal, Bowel sounds: active, all quadrants, Palpation: abdomen is soft and non-tender, in all quadrants, rebound tenderness, is not appreciated, involuntary guarding, is not appreciated. 16:30 Back: pain, that is mild, of the left scapular area and left subscapular area, ROM is normal. 16:30 Skin: no rash present. 16:30 Neuro: Orientation: to person, place \T\ time. Mentation: is normal, Cerebellar function: is grossly normal, Motor: moves all fours, strength is normal, Sensation: is normal. Vital Signs: 14:33 BP 113 / 73; Pulse 89; Resp 20; Temp 98.0(TE); Pulse Ox 99% on R/A; Weight 115.21 kg kg (M); Height 5 ft. 8 in. (172.72 cm) (R); Pain 7/10; 17:05 BP 128 / 98; Pulse 111; Resp 17; Pulse Ox 94% on R/A; Pain 7/10; hb 19:02 BP 121 / 74; Pulse 102; Resp 17; Pulse Ox 98% on R/A; hb 14:33 Body Mass Index 38.62 (115.21 kg, 172.72 cm) kg MDM: 16:00 Differential diagnosis: abnormal EKG, acute myocardial infarction, pleurisy, pneumonia, cp pneumothorax, pulmonary embolus, stable angina, thoracic aortic disection, unstable angina. 16:15 Patient medically screened. cp 19:26 Refusal of service: The patient/guardian displays adequate decision making capability cp and despite a detailed discussion of alternatives, benefits, risks, and consequences refuses: IV lasix here in ED. Patient reports she has prescribed Lasix to take at home and admits to not taking medication as prescribed. 20:05 Data reviewed: vital signs, nurses notes, lab test result(s), EKG, radiologic studies, cp CT scan, plain films, I have discussed the patient's presentation/case with the attending Emergency Department Physician;. 20:05 The patient was given aspirin in the Emergency Department. 05/19 15:02 Order name: Urine Dipstick-Ancillary; Complete Time: 15:23 EDMA 05/19 15:21 Order name: Urine --Ancillary (enter results); Complete Time: 18:19 eb 05/19 15:44 Order name: Basic Metabolic Panel 05/19 15:44 Order name: CBC with Diff 05/19 15:44 Order name: LFT's; Complete Time: 17:18 cp 05/19 17:18 Interpretation: Normal except: GLOB 3.6; A/G 0.9. 05/19 15:44 Order name: Magnesium; Complete Time: 17:18 05/19 15:44 Order name: NT PRO-BNP; Complete Time: 17:18 cp 08/06 17:18 Interpretation: Abnormal: NT PRO-BNP 1461. cp 08/ 15:44 Order name: PT-INR; Complete Time: 17:18 cp 08/ 15:44 Order name: Troponin (emerg Dept Use Only); Complete Time: 17:18 cp /06 17:19 Interpretation: Within normal limits: TROPED 0.02. cp 08/ 15:44 Order name: Basic Metabolic Panel; Complete Time: 17:18 EDMS 08/06 17:18 Interpretation: Normal except: CL 110; GLUC 110. cp 08/ 15:44 Order name: CBC with Automated Diff; Complete Time: 17:18 EDMS 08/06 17:18 Interpretation: Normal except: MCH 26.3. cp / 17:42 Order name: LAB Add On cp / 17:42 Order name: D-Dimer; Complete Time: 18:19 cp / 18:19 Interpretation: Abnormal: D-DIMER 2149. cp 08/ 14:39 Order name: EKG - Nurse/Tech; Complete Time: 16:31 kg / 14:39 Order name: XRAY Chest Pa And Lat (2 Views); Complete Time: 15:44 kg / 15:44 Order name: Cardiac monitoring; Complete Time: 16:31 cp / 15:44 Order name: IV Saline Lock; Complete Time: 16:27 cp / 15:44 Order name: Labs collected and sent; Complete Time: 16:27 cp / 15:44 Order name: O2 Per Protocol; Complete Time: 16:27 cp / 15:44 Order name: O2 Sat Monitoring; Complete Time: 16:27 cp / 18:05 Order name: CT Chest For PE Angio; Complete Time: 18:56 cp /06 19:02 Interpretation: Report reviewed. EC:30 Rate is 89 beats/min. Rhythm is regular. TX interval is normal. QRS interval is normal cp at 406 msec. QT interval is normal. T waves are Inverted in lead aVL. Interpreted by me. Reviewed by me. Administered Medications: 17:15 Drug: Aspirin Chewable Tablet 324 mg Route: PO; hb 17:15 Drug: fentaNYL (PF) 25 mcg Route: IVP; Site: left antecubital; hb 18:40 Not Given (Patient Refused): Lasix (furosemide) 20 mg IVP once; give over 2 minutes hb Disposition: 05/20 18:13 Co-signature as Attending Physician, Malick Samayoa MD I agree with the assessment and kdr plan of care. Disposition Summary: 05/19/21 20:07 Left Against Medical Advice Location: Home cp Problem: an acute exacerbation cp Symptoms: have improved cp Condition: Stable cp Diagnosis - Unspecified combined systolic (congestive) and diastolic (congestive) heart failure cp Followup: cp - With: Jimy Martines MD - When: 2 - 3 days - Reason: Recheck today's complaints Discharge Instructions: - Discharge Summary Sheet cp - Heart Failure, Diagnosis cp Signatures: Dispatcher [employer] EDMS Malick Samayoa MD MD [facility] Jermaine Walker PA PA cp Piper Peralta, RN RN hb Erica March RN RN kg Corrections: (The following items were deleted from the chart) 16:05 05/19 16:25 The pain does not radiate. cp cp 05/20 16:07 05/19 18:40 Patient admits to history of injecting methamphetamine with last use 2 days cp ago. cp
[2021-05-19 20:32] VITALS: TEMP 98
[2021-05-19 20:36] VITALS: BP 121/74; O2SAT 98
== END 2021-05-19 20:14 | disposition left against medical advice (07) ==
LOC: ER 13:51
DX: I50.40 Unspecified combined systolic (congestive) and diastolic (congestive) heart failure (principal); I10 Essential (primary) hypertension; F32.9 Major depressive disorder, single episode, unspecified; F17.210 Nicotine dependence, cigarettes, uncomplicated
CPT/HCPCS: 93005; 85025; 80048; 36415; 83735; 81025; 85610; 85379; 80076; 81003; 84484; 83880; 71275; 71046; 96374; 99285; Q9967; J1940; J3010